=== PATIENT | female | born 1945 | race Caucasian/White ===

== ENCOUNTER → 2016-10-08 | Outpatient (CLI) | payer MEDICARE, OTHER ==
--- NOTE | 2016-10-08 17:33 | WOMENS IMAGING REPORT ---
EXAM DESCRIPTION: 3D DX MAMMO BILAT; U/S BREAST UNILAT LIMITED COMPLETED DATE/TIME: 10/08/2016 10:22 am; 10/08/2016 10:57 am REASON FOR STUDY: R92.8 INCONCLUSIVE MAMMO; LT BREAST PALPABLE AREA R92.8 OTH ABN AND INCONCLUSIVE FINDINGS ON DX IMAGING OF [place] COMPARISON: 10/05/2015 TECHNIQUE: Standard craniocaudal and mediolateral oblique views of each breast recorded using digita l acquisition and breast tomosynthesis. Additional left breast 90 mediolateral view Because of a history of left breast pain, left breast ultrasound was performed throughout the lower [facility]. LIMITATIONS: None. FINDINGS: RIGHT BREAST MASSES: No suspicious masses. CALCIFICATIONS: No new or suspicious calcifications. ARCHITECTURAL DISTORTION: Benign postoperative architectural distortion in the right central retroare olar region from reportedly benign breast biopsy in 2014 DEVELOPING DENSITY: None. ASYMMETRY: None noted. OTHER: No other significant findings. LEFT BREAST MASSES: No suspicious masses. CALCIFICATIONS: No new or suspicious calcifications. ARCHITECTURAL DISTORTION: None. DEVELOPING DENSITY: None. ASYMMETRY: None noted. OTHER: No other significant finding. Read with the assistance of CAD: .[facility] - R2 Cenova Version 1.3 .[facility] - R2 Cenova Version 1.3 .[facility] - R2 Cenova Version 2.4 .[facility] [place] Cenova Version 2.4 .[facility] - R2 Push Bench Operator Helper Version 9.2 Left breast ultrasound: Patient gives a history of left lower breast pain. Ultrasound of the left breast from the 3 to 6 o'c lock position demonstrates no discrete cystic or solid lesions. No worrisome acoustic absorption. N o focal findings. BREAST DENSITY: c. The breasts are heterogeneously dense, which may obscure small masses. BIRAD: 2 Benign findings. RECOMMENDATION: RECOMMENDED FOLLOW UP: Please continue yearly bilateral mammographic screening. Con gis technician bilateral screening tomosynthesis given heterogeneously dense tissue SPECIFIC INTERVENTION/IMAGING/CONSULTATION RECOMMENDED:No additional intervention/ imaging/consultati on needed at this time. COMMUNICATION:The negative/benign results were communicated to the patient. COMMENT: PATIENT NOTIFIED BY LETTER. The [employer] (ACR) has developed recommendations for screening MRI of the breast s in certain patient populations, to be used in conjunction with mammography. Breast MRI surveillanc e may be appropriate for women with more than 20% lifetime risk of developing breast cancer as deter mined by genetic testing, significant family history of the disease, or history of mantle radiation f or Hodgkins Disease. ACR Practice Guidelines 2008. DBT Technology DBT is a type of tomographic mammography. With conventional mammography, overlapping breast tissue ma y make lesions difficult to detect, even with good compression. DBT uses an x-ray tube that rotates a round the breast, taking images at different angles. These images are then combined to create thin sl ices of the breast that the radiologist can view as a 3D reconstruction. The Softdesk unit can perform full-field digital mammograms (2D imaging); or DBT (3D imaging); or both, in a combination mode that quickly performs both the mammogram and the tomosynthesis scan while the breast is still compressed. PQRS 6045F: Fluoroscopic imaging is not utilized for breast tomosynthesis. TECHNICAL DOCUMENTATION: FINDING NUMBER: (1) ASSESSMENT: (1) JOB ID: [id number] [employer]- All Rights Reserved
--- NOTE | 2016-10-08 17:33 | WOMENS IMAGING REPORT ---
EXAM DESCRIPTION: 3D DX MAMMO BILAT; U/S BREAST UNILAT LIMITED COMPLETED DATE/TIME: 10/08/2016 10:22 am; 10/08/2016 10:57 am REASON FOR STUDY: R92.8 INCONCLUSIVE MAMMO; LT BREAST PALPABLE AREA R92.8 OTH ABN AND INCONCLUSIVE FINDINGS ON DX IMAGING OF [place] COMPARISON: 10/05/2015 TECHNIQUE: Standard craniocaudal and mediolateral oblique views of each breast recorded using digita l acquisition and breast tomosynthesis. Additional left breast 90 mediolateral view Because of a history of left breast pain, left breast ultrasound was performed throughout the lower [facility]. LIMITATIONS: None. FINDINGS: RIGHT BREAST MASSES: No suspicious masses. CALCIFICATIONS: No new or suspicious calcifications. ARCHITECTURAL DISTORTION: Benign postoperative architectural distortion in the right central retroare olar region from reportedly benign breast biopsy in 2014 DEVELOPING DENSITY: None. ASYMMETRY: None noted. OTHER: No other significant findings. LEFT BREAST MASSES: No suspicious masses. CALCIFICATIONS: No new or suspicious calcifications. ARCHITECTURAL DISTORTION: None. DEVELOPING DENSITY: None. ASYMMETRY: None noted. OTHER: No other significant finding. Read with the assistance of CAD: .[facility] - R[facility] Cenova Version 1.3 .[facility] Imaging - R2 Cenova Version 1.3 .[facility] - R2 Cenova Version 2.4 .[facility] [place] R2 Cenova Version 2.4 .[facility] - R2 Loading Dock Hand Version 9.2 Left breast ultrasound: Patient gives a history of left lower breast pain. Ultrasound of the left breast from the 3 to 6 o'c lock position demonstrates no discrete cystic or solid lesions. No worrisome acoustic absorption. N o focal findings. BREAST DENSITY: c. The breasts are heterogeneously dense, which may obscure small masses. BIRAD: 2 Benign findings. RECOMMENDATION: RECOMMENDED FOLLOW UP: Please continue yearly bilateral mammographic screening. Con manager credit bilateral screening tomosynthesis given heterogeneously dense tissue SPECIFIC INTERVENTION/IMAGING/CONSULTATION RECOMMENDED:No additional intervention/ imaging/consultati on needed at this time. COMMUNICATION:The negative/benign results were communicated to the patient. COMMENT: PATIENT NOTIFIED BY LETTER. The [employer] (ACR) has developed recommendations for screening MRI of the breast s in certain patient populations, to be used in conjunction with mammography. Breast MRI surveillanc e may be appropriate for women with more than 20% lifetime risk of developing breast cancer as deter mined by genetic testing, significant family history of the disease, or history of mantle radiation f or Hodgkins Disease. ACR Practice Guidelines 2008. DBT Technology DBT is a type of tomographic mammography. With conventional mammography, overlapping breast tissue ma y make lesions difficult to detect, even with good compression. DBT uses an x-ray tube that rotates a round the breast, taking images at different angles. These images are then combined to create thin sl ices of the breast that the radiologist can view as a 3D reconstruction. The [employer] unit can perform full-field digital mammograms (2D imaging); or DBT (3D imaging); or both, in a combination mode that quickly performs both the mammogram and the tomosynthesis scan while the breast is still compressed. PQRS 6045F: Fluoroscopic imaging is not utilized for breast tomosynthesis. TECHNICAL DOCUMENTATION: FINDING NUMBER: (1) ASSESSMENT: (1) JOB ID: [id number] [employer]- All Rights Reserved
== END ==
LOC: WI 09:59
PROVIDERS: ATTEND Surgery
DX: R92.8 Other abnormal and inconclusive findings on diagnostic imaging of breast (principal)
CPT/HCPCS: 76642; G0279; G0204; 77062; 77066

== ENCOUNTER → 2016-12-11 | Outpatient (CLI) | payer MEDICARE, OTHER ==
[2016-12-11 11:38] LABS: HEMOGLOBIN 13.6 g/dL (12.0-15.5); HGB HCT DIFFERENCE -0.2; MEAN CORPUSCULAR HEMOGLOBIN 29.6 pg (27.0-33.4); MEAN CORPUSCULAR HGB CONC 33.2 g/dL (32.0-36.0); MEAN CORPUSCULAR VOLUME 89 fl (80-97); RED CELL DISTRIBUTION WIDTH 13.4 % (11.5-14.0); WHITE BLOOD COUNT 6.6 10^3/uL (4.0-10.5)
[2016-12-11 12:01] LABS: ALANINE AMINOTRANSFERASE 40 U/L (9-52); ALBUMIN 4.2 g/dL (3.5-5.0); ALKALINE PHOSPHATASE 73 U/L (38-126); ANION GAP 9 (5-19); ASPARTATE AMINO TRANSFERASE 24 U/L (14-36); BILIRUBIN,DIRECT 0.1 mg/dL (0.0-0.4); BILIRUBIN,TOTAL 0.3 mg/dL (0.2-1.3); BLOOD UREA NITROGEN 14 mg/dL (7-20); CARBON DIOXIDE 30 mmol/L (22-30); CHLORIDE 103 mmol/L (98-107); CHOLESTEROL 193.48 mg/dL (0-200); CREATININE RESULT 0.83 mg/dL (0.52-1.25); GLUCOSE 162 mg/dL (75-110); LITHIUM 0.9 mEq/L (0.6-1.2); POTASSIUM 4.8 mmol/L (3.6-5.0); SODIUM 142.3 mmol/L (137-145); TOTAL PROTEIN 6.5 g/dL (6.3-8.2); TRIGLYCERIDES 262 mg/dL (<150)
[2016-12-11 12:12] LABS: DIRECT LDL 79 mg/dL (<100)
[2016-12-11 12:32] LABS: THYROID STIMULATING HORMONE 2.56 uIU/mL (0.47-4.68)
== END ==
LOC: OD 10:31
PROVIDERS: ATTEND Psychiatry & Neurology Psychiatry
DX: F31.81 Bipolar II disorder (principal); E11.8 Type 2 diabetes mellitus with unspecified complications; Z79.899 Other long term (current) drug therapy
CPT/HCPCS: 36415; 80048; 80076; 80178; 82465; 83036; 83721; 84439; 84443; 84478; 85027

== ENCOUNTER → 2017-01-21 | Outpatient (CLI) | payer MEDICARE, OTHER ==
[2017-01-21 16:53] LABS: THYROID STIMULATING HORMONE 0.88 uIU/mL (0.47-4.68)
== END ==
LOC: OD 14:58
PROVIDERS: ATTEND Psychiatry & Neurology Psychiatry
DX: F31.81 Bipolar II disorder (principal)
CPT/HCPCS: 36415; 84439; 84443

== ENCOUNTER → 2017-11-11 | Outpatient (CLI) | payer MEDICARE, OTHER ==
--- NOTE | 2017-11-12 09:19 | WOMENS IMAGING REPORT ---
EXAM DESCRIPTION: 3D SCREENING MAMMO BILAT COMPLETED DATE/TIME: 11/11/2017 2:50 pm REASON FOR STUDY: SCREENING MAMMO Z12.31 ENCNTR SCREEN MAMMOGRAM FOR MALIGNANT NEOPLASM OF [place] COMPARISON: 2015, 2016 TECHNIQUE: Standard craniocaudal and mediolateral oblique views of each breast recorded using digita l acquisition and breast tomosynthesis. LIMITATIONS: None. FINDINGS: Findings present which are benign by mammographic criteria. No suspicious masses, calcifi cations or architectural distortion. Pertinent benign findings: Stable post therapeutic changes in the central right breast, with post lum pectomy architectural distortion. Stable bilateral breast parenchymal and skin calcifications. Read with the assistance of CAD. .[facility] - R2 Cenova Version 1.3 .[facility] Imaging - R2 Cenova Version 1.3 .[facility] Imaging - R2 Cenova Version 2.4 .[facility] [place] R2 Cenova Version 2.4 .[facility] - R2 Reliner Version 9.2 Benign mammographic findings may include one or more of the following: Smooth masses, popcorn/rim/co arse calcifications, asymmetries, post-procedure changes, and lesions with long-standing stability. IMPRESSION: BENIGN MAMMOGRAPHIC FINDINGS. BIRADS 2 BREAST DENSITY: c. The breasts are heterogeneously dense, which may obscure small masses. BIRAD: 2 BENIGN FINDING(S) RECOMMENDATION: RECOMMENDATION: ROUTINE SCREENING Please continue bilateral screening tomosynthesis in October 2018 COMMENT: The patient has been notified of the results by letter per [place] requirements. Additional no tification policies are in place for contacting patient with suspicious or incomplete findings. Quality ID #[id number]: The [employer] recommends an annual screening mammogram for women aged 40 years or over. This facility utilizes a reminder system to ensure that all patients receive reminder letters, and/or direct phone calls for appointments. This includes reminders for routine scr eening mammograms, diagnostic mammograms, or other Breast Imaging Interventions when appropriate. Th is patient will be placed in the appropriate reminder system. The [employer] (ACR) has developed recommendations for screening MRI of the breast s in certain patient populations, to be used in conjunction with mammography. Breast MRI surveillanc e may be appropriate for women with more than 20% lifetime risk of developing breast cancer as deter mined by genetic testing, significant family history of the disease, or history of mantle radiation f or Hodgkins Disease. ACR Practice Guidelines 2008. DBT Technology DBT is a type of tomographic mammography. With conventional mammography, overlapping breast tissue ma y make lesions difficult to detect, even with good compression. DBT uses an x-ray tube that rotates a round the breast, taking images at different angles. These images are then combined to create thin sl ices of the breast that the radiologist can view as a 3D reconstruction. The Hologic unit can perform full-field digital mammograms (2D imaging); or DBT (3D imaging); or both, in a combination mode that quickly performs both the mammogram and the tomosynthesis scan while the breast is still compressed. PQRS 6045F: Fluoroscopic imaging is not utilized for breast tomosynthesis. TECHNICAL DOCUMENTATION: FINDING NUMBER: (1) ASSESSMENT: (1) JOB ID: [id number] [employer]- All Rights Reserved
== END ==
LOC: WI 14:02
PROVIDERS: ATTEND Surgery
DX: Z12.31 Encounter for screening mammogram for malignant neoplasm of breast (principal)
CPT/HCPCS: 77063; 77067

== ENCOUNTER → 2018-12-02 | Outpatient (CLI) | payer MEDICARE, OTHER ==
[2018-12-02 15:56] LABS: ABSOLUTE BASOPHILS # (AUTO) 0.1 10^3/uL (0.0-0.2); ABSOLUTE EOSINOPHILS # (AUTO) 0.3 10^3/uL (0.0-0.6); ABSOLUTE LYMPHOCYTES (AUTO) 1.6 10^3/uL (0.5-4.7); ABSOLUTE MONOCYTES (AUTO) 0.9 10^3/uL (0.1-1.4); ABSOLUTE NEUT (AUTO) 6.2 10^3/uL (1.7-8.2); BASOPHILS % (AUTO) 0.8 % (0-2); EOSINOPHILS % (AUTO) 2.8 % (0-6); HEMATOCRIT 41.3 % (36.0-47.0); HEMOGLOBIN 14.1 g/dL (12.0-15.5); LYMPHOCYTES % (AUTO) 17.8 % (13-45); MEAN CORPUSCULAR HEMOGLOBIN 30.4 pg (27.0-33.4); MEAN CORPUSCULAR HGB CONC 34.2 g/dL (32.0-36.0); MEAN CORPUSCULAR VOLUME 89 fl (80-97); MONOCYTES % (AUTO) 10.4 % (3-13); PLATELET COUNT 259 10^3/uL (150-450); RED BLOOD COUNT 4.65 10^6/uL (3.72-5.28); RED CELL DISTRIBUTION WIDTH 13.2 % (11.5-14.0); SEGMENTED NEUTROPHILS % (AUTO) 68.2 % (42-78); TOTAL CELLS COUNTED % (AUTO) 100 %
[2018-12-02 16:27] LABS: ALANINE AMINOTRANSFERASE 36 U/L (9-52); ALBUMIN 4.3 g/dL (3.5-5.0); ALKALINE PHOSPHATASE 76 U/L (38-126); ANION GAP 5 (5-19); ASPARTATE AMINO TRANSFERASE 20 U/L (14-36); BILIRUBIN,DIRECT 0.1 mg/dL (0.0-0.4); BILIRUBIN,TOTAL 0.2 mg/dL (0.2-1.3); BLOOD UREA NITROGEN 20 mg/dL (7-20); CALCIUM 10.6 mg/dL (8.4-10.2); CARBON DIOXIDE 28 mmol/L (22-30); CHLORIDE 104 mmol/L (98-107); POTASSIUM 4.7 mmol/L (3.6-5.0); SODIUM 137.1 mmol/L (137-145); TOTAL PROTEIN 6.7 g/dL (6.3-8.2)
[2018-12-02 16:31] LABS: GLUCOSE 66 mg/dL (75-110)
[2018-12-02 16:41] LABS: FREE T4 (FREE THYROXINE) 0.53 ng/dL (0.78-2.19)
[2018-12-02 16:55] LABS: THYROID STIMULATING HORMONE 1.15 uIU/mL (0.47-4.68)
== END ==
LOC: OD 14:29
PROVIDERS: ATTEND Physician Assistant
DX: F31.81 Bipolar II disorder (principal); Z79.899 Other long term (current) drug therapy
CPT/HCPCS: 36415; 80053; 80178; 83036; 84146; 84439; 84443; 85025

== ENCOUNTER 2018-12-12 17:12 | Emergency (ER) | payer MEDICARE, OTHER ==
[2018-12-12 17:27] VITALS: BP 143/57
--- NOTE | 2018-12-12 18:38 | ER Document Report ---
ED Medical Screen (RME) - General Chief Complaint: Tremor Stated Complaint: SHAKY, UNABLE TO EAT Time Seen by Provider: 12/12/18 18:36 Primary Care Provider: BART RIVERA PA-C [Primary Care Provider] - Follow up as needed Mode of Arrival: Wheelchair Information source: Patient, Relative TRAVEL OUTSIDE OF THE [place] IN LAST 30 DAYS: No - HPI Patient complains to provider of: fall; tremor Onset: Yesterday - pt fell in the shower and hit head 2 days ago -- no LOC. Now with tremor in UE's bilaterally - Related Data Allergies/Adverse Reactions: No Known Allergies Allergy (Verified 12/12/18 17:14) Past Medical History - Past Medical History Cardiac Medical History: Reports: Hx Hypercholesterolemia Denies: Hx Heart Attack, Hx Hypertension Pulmonary Medical History: Denies: Hx Asthma, Hx Tuberculosis Neurological Medical History: Denies: Hx Cerebrovascular Accident, Hx Seizures GI Medical History: Denies: Hx Hepatitis, Hx Hiatal Hernia, Hx Ulcer Psychiatric Medical History: Reports: Hx Bipolar Disorder, Hx Schizophrenia Infectious Medical History: Denies: Hx Hepatitis Past Surgical History: Reports: Hx Hysterectomy. Denies: Hx Mastectomy, Hx Open Heart Surgery, Hx Pacemaker Physical Exam - Vital signs Vitals: Temp Pulse Resp BP Pulse Ox 98.9 F 91 17 143/57 H 95 12/12/18 17:26 12/12/18 17:26 12/12/18 17:26 12/12/18 17:26 12/12/18 17:26 Course - Vital Signs Vital signs: Temp Pulse Resp BP Pulse Ox 98.9 F 91 17 143/57 H 95 12/12/18 17:26 12/12/18 17:26 12/12/18 17:26 12/12/18 17:26 12/12/18 17:26 Doctor's Discharge - Discharge Referrals: BART RIVERA PA-C [Primary Care Provider] - Follow up as needed
--- NOTE | 2018-12-12 18:58 | RADIOLOGY REPORT (SQ) ---
EXAM DESCRIPTION: CT HEAD WITHOUT COMPLETED DATE/TIME: 12/12/2018 6:50 pm REASON FOR STUDY: fall COMPARISON: None. TECHNIQUE: Axial images acquired through the brain without intravenous contrast. Images reviewed wi th bone, brain and subdural windows. Additional sagittal and coronal reconstructions were generated. Images stored on PACS. All CT scanners at this facility use dose modulation, iterative reconstruction, and/or weight based d osing when appropriate to reduce radiation dose to as low as reasonably achievable (ALARA). [facility]: Dose Right [facility]: CareDose [facility]: Dose Right [facility]: Teradose 4D [facility]: Hostspot RADIATION DOSE: CT Rad equipment meets quality standard of care and radiation dose reduction techniq ues were employed. CTDIvol: 53.2 mGy. DLP: 1044 mGy-cm. mGy. LIMITATIONS: None. FINDINGS: VENTRICLES: Normal size and contour. CEREBRUM: No masses. No hemorrhage. No midline shift. No evidence for acute infarction. Normal gra y/white matter differentiation. No areas of low density in the white matter. CEREBELLUM: No masses. No hemorrhage. No alteration of density. No evidence for acute infarction. EXTRAAXIAL SPACES: No fluid collections. No masses. ORBITS AND GLOBE: No intra- or extraconal masses. Normal contour of globe without masses. CALVARIUM: No fracture. PARANASAL SINUSES: No fluid or mucosal thickening. SOFT TISSUES: No mass or hematoma. OTHER: No other significant finding. IMPRESSION: No acute intracranial pathology. EVIDENCE OF ACUTE STROKE: NO. COMMENT: Quality ID # [id number]: Final reports with documentation of one or more dose reduction techniques (e.g., Automated exposure control, adjustment of the mA and/or kV according to patient size, use of iterative reconstruction technique) TECHNICAL DOCUMENTATION: JOB ID: [id number] [employer]- All Rights Reserved Reading location - IP/workstation name: [email or web address]
[2018-12-12 19:56] LABS: APPEARANCE,URINE CLEAR; BILIRUBIN,URINE NEGATIVE (NEGATIVE); COLOR,URINE YELLOW; GLUCOSE, URINE NEGATIVE (NEGATIVE); KETONES,URINE NEGATIVE (NEGATIVE); LEUKOCYTE ESTERASE,URINE NEGATIVE (NEGATIVE); NITRITE,URINE NEGATIVE (NEGATIVE); PROTEIN,URINE NEGATIVE (NEGATIVE); URINE SPECIFIC GRAVITY 1.011; UROBILINOGEN,URINE NEGATIVE mg/dL (<2.0)
[2018-12-12 20:09] LABS: ABSOLUTE BASOPHILS # (AUTO) 0.1 10^3/uL (0.0-0.2); ABSOLUTE EOSINOPHILS # (AUTO) 0.3 10^3/uL (0.0-0.6); ABSOLUTE LYMPHOCYTES (AUTO) 1.4 10^3/uL (0.5-4.7); ABSOLUTE MONOCYTES (AUTO) 0.6 10^3/uL (0.1-1.4); ABSOLUTE NEUT (AUTO) 4.4 10^3/uL (1.7-8.2); BASOPHILS % (AUTO) 0.8 % (0-2); EOSINOPHILS % (AUTO) 3.8 % (0-6); HEMATOCRIT 43.2 % (36.0-47.0); HEMOGLOBIN 14.6 g/dL (12.0-15.5); LYMPHOCYTES % (AUTO) 20.7 % (13-45); MEAN CORPUSCULAR HEMOGLOBIN 30.1 pg (27.0-33.4); MEAN CORPUSCULAR HGB CONC 33.8 g/dL (32.0-36.0); MEAN CORPUSCULAR VOLUME 89 fl (80-97); MONOCYTES % (AUTO) 9.1 % (3-13); PLATELET COUNT 234 10^3/uL (150-450); RED BLOOD COUNT 4.84 10^6/uL (3.72-5.28); SEGMENTED NEUTROPHILS % (AUTO) 65.6 % (42-78); TOTAL CELLS COUNTED % (AUTO) 100 %; WHITE BLOOD COUNT 6.7 10^3/uL (4.0-10.5)
[2018-12-12 20:17] LABS: ALANINE AMINOTRANSFERASE 99 U/L (9-52); ALBUMIN 4.3 g/dL (3.5-5.0); ALKALINE PHOSPHATASE 84 U/L (38-126); ANION GAP 9 (5-19); ASPARTATE AMINO TRANSFERASE 32 U/L (14-36); BILIRUBIN,DIRECT 0.1 mg/dL (0.0-0.4); BILIRUBIN,TOTAL 0.1 mg/dL (0.2-1.3); BLOOD UREA NITROGEN 17 mg/dL (7-20); CARBON DIOXIDE 30 mmol/L (22-30); CHLORIDE 101 mmol/L (98-107); GLUCOSE 140 mg/dL (75-110); POTASSIUM 4.6 mmol/L (3.6-5.0); TOTAL PROTEIN 7.2 g/dL (6.3-8.2)
[2018-12-12 20:34] LABS: FREE T3 3.41 pg/mL (2.77-5.27); FREE T4 (FREE THYROXINE) 0.56 ng/dL (0.78-2.19)
[2018-12-12 20:48] LABS: THYROID STIMULATING HORMONE 0.68 uIU/mL (0.47-4.68)
--- NOTE | 2018-12-12 20:57 | ER Document Report ---
ED General - General Chief Complaint: Tremor Stated Complaint: SHAKY, UNABLE TO EAT Time Seen by Provider: 12/12/18 18:36 Primary Care Provider: BART RIVERA PA-C [NO LOCAL MD] - Follow up as needed Mode of Arrival: Wheelchair Information source: Patient, Relative TRAVEL OUTSIDE OF THE [place] IN LAST 30 DAYS: No - HPI Patient complains to provider of: Head injury, tremors Onset: Other - 2 days ago Onset/Duration: Persistent Quality of pain: No pain Associated symptoms: None Exacerbated by: Movement Relieved by: Denies Similar symptoms previously: No Recently seen / treated by doctor: No Notes: Patient is a 73-year-old female presenting to the emergency room today complaining of head injury that occurred 2 days ago, she slipped and fell in the shower, came home and found her lying in the bathtub, she was awake and alert at the time, however she developed a resting tremor since then, she denies any pain at this time, no nausea or vomiting, no change in vision, she denies pain or injury elsewhere, no numbness or tingling to her extremities, no chest pain or shortness of breath, no headache - Related Data Allergies/Adverse Reactions: No Known Allergies Allergy (Verified 12/12/18 17:14) Past Medical History - General Information source: Patient, Relative - Social History Smoking Status: Never Smoker Chew tobacco use (# tins/day): No Frequency of alcohol use: None Drug Abuse: None Family History: Reviewed & Not Pertinent Patient has suicidal ideation: No Patient has homicidal ideation: No - Past Medical History Cardiac Medical History: Reports: Hx Hypercholesterolemia Denies: Hx Heart Attack, Hx Hypertension Pulmonary Medical History: Denies: Hx Asthma, Hx Tuberculosis Neurological Medical History: Denies: Hx Cerebrovascular Accident, Hx Seizures Renal/ Medical History: Denies: Hx Peritoneal Dialysis GI Medical History: Denies: Hx Hepatitis, Hx Hiatal Hernia, Hx Ulcer Psychiatric Medical History: Reports: Hx Bipolar Disorder, Hx Schizophrenia Infectious Medical History: Denies: Hx Hepatitis Past Surgical History: Reports: Hx Hysterectomy. Denies: Hx Mastectomy, Hx Open Heart Surgery, Hx Pacemaker - Immunizations Hx Pneumococcal Vaccination: 09/28/12 Review of Systems - Review of Systems Constitutional: No symptoms reported EENT: No symptoms reported Cardiovascular: No symptoms reported Respiratory: No symptoms reported Gastrointestinal: No symptoms reported Genitourinary: No symptoms reported Female Genitourinary: No symptoms reported Musculoskeletal: No symptoms reported Skin: No symptoms reported Hematologic/Lymphatic: No symptoms reported Neurological/Psychological: Tremor -: Yes All other systems reviewed and negative Physical Exam - Vital signs Vitals: Temp Pulse Resp BP Pulse Ox 98.9 F 91 17 143/57 H 95 12/12/18 17:26 12/12/18 17:26 12/12/18 17:26 12/12/18 17:26 12/12/18 17:26 Interpretation: Normal - General General appearance: Appears well, Alert In distress: None - HEENT Head: Normocephalic, Atraumatic Eyes: Normal Conjunctiva: Normal Extraocular movements intact: Yes Eyelashes: Normal Pupils: PERRL Sinus: Normal Mouth/Lips: Normal Mucous membranes: Normal Pharynx: Normal Neck: Normal - Respiratory Respiratory status: No respiratory distress Chest status: Nontender Breath sounds: Normal Chest palpation: Normal - Cardiovascular Rhythm: Regular Heart sounds: Normal auscultation Murmur: No - Abdominal Inspection: Normal Distension: No distension Bowel sounds: Normal Tenderness: Nontender Organomegaly: No organomegaly - Back Back: Normal, Nontender, Other - No bony deformity - Extremities General upper extremity: Normal inspection, Nontender, Normal color, Normal ROM, Normal temperature General lower extremity: Normal inspection, Nontender, Normal color, Normal ROM, Normal temperature. No: Godfrey's sign - Neurological Neuro grossly intact: Yes Cognition: Normal Orientation: AAOx4 [place] Coma Scale Eye Opening: Spontaneous Princess Coma Scale Verbal: Oriented Princess Coma Scale Motor: Obeys Commands Princess Coma Scale Total: 15 Speech: Normal Motor strength normal: LUE, RUE, LLE, RLE Additional motor exam normals: Other - Slight tremor in upper extremities Sensory: Normal - Psychological Associated symptoms: Normal affect, Normal mood - Skin Skin Temperature: Warm Skin Moisture: Dry Skin Color: Pale Course - Re-evaluation Re-evalutation: 12/12/18 21:05 Lab and imaging findings discussed with patient and spouse at bedside which are relatively unremarkable, no explanation for patient's tremors at this time, patient was advised to follow-up with primary care provider or return if symptoms worsen, patient and acknowledged understanding and agreement with this plan - Vital Signs Vital signs: Temp Pulse Resp BP Pulse Ox 98.9 F 91 17 143/57 H 95 12/12/18 17:26 12/12/18 17:26 12/12/18 17:26 12/12/18 17:26 12/12/18 17:26 - Laboratory Result Diagrams: 12/12/18 19:48 12/12/18 19:48 Laboratory results interpreted by me: 12/12/18 12/12/18 12/12/18 19:40 19:40 19:48 Glucose 140 H Calcium 11.0 H Total Bilirubin 0.1 L ALT 99 H Free T4 0.56 L Urine Ascorbic Acid 40 H Discharge - Discharge Clinical Impression: Continuous tremor Head injury Qualifiers: Encounter type: initial encounter Qualified Code(s): S09.90XA - Unspecified injury of head, initial encounter Condition: Stable Disposition: HOME, SELF-CARE Instructions: Head Injury Precautions ([facility]) Additional Instructions: Follow up with your primary care provider in one to 2 days. Return to the emergency room immediately if symptoms worsen or any additional concerns. Referrals: BART RIVERA PA-C [NO LOCAL MD] - Follow up as needed
== END 2018-12-12 21:10 | disposition home or self-care (01) ==
LOC: ER 17:12
DX: S09.90XA Unspecified injury of head, initial encounter (principal); R25.1 Tremor, unspecified; R63.0 Anorexia; W18.2XXA Fall in (into) shower or empty bathtub, initial encounter
CPT/HCPCS: 36415; 70450; 80053; 81001; 82550; 82553; 84439; 84443; 84481; 85025; 99284

== ENCOUNTER 2018-12-22 16:42 | Inpatient (IN) | payer MEDICARE, OTHER ==
[2018-12-22 17:17] LABS: APPEARANCE,URINE CLEAR; BILIRUBIN,URINE NEGATIVE (NEGATIVE); COLOR,URINE YELLOW; GLUCOSE, URINE NEGATIVE (NEGATIVE); KETONES,URINE 20 mg/dL (NEGATIVE); LEUKOCYTE ESTERASE,URINE MODERATE (NEGATIVE); NITRITE,URINE NEGATIVE (NEGATIVE); PROTEIN,URINE NEGATIVE (NEGATIVE); URINE SPECIFIC GRAVITY 1.016; UROBILINOGEN,URINE NEGATIVE mg/dL (<2.0)
[2018-12-22 17:20] LABS: ABSOLUTE EOSINOPHILS # (AUTO) 0.1 10^3/uL (0.0-0.6); ABSOLUTE LYMPHOCYTES (AUTO) 1.8 10^3/uL (0.5-4.7); ABSOLUTE MONOCYTES (AUTO) 1.7 10^3/uL (0.1-1.4); ABSOLUTE NEUT (AUTO) 11.3 10^3/uL (1.7-8.2); BASOPHILS % (AUTO) 0.3 % (0-2); EOSINOPHILS % (AUTO) 0.6 % (0-6); HEMATOCRIT 46.9 % (36.0-47.0); HEMOGLOBIN 15.9 g/dL (12.0-15.5); LYMPHOCYTES % (AUTO) 11.8 % (13-45); MEAN CORPUSCULAR HEMOGLOBIN 29.8 pg (27.0-33.4); MEAN CORPUSCULAR HGB CONC 33.8 g/dL (32.0-36.0); MEAN CORPUSCULAR VOLUME 88 fl (80-97); MONOCYTES % (AUTO) 11.2 % (3-13); PLATELET COUNT 288 10^3/uL (150-450); RED BLOOD COUNT 5.31 10^6/uL (3.72-5.28); RED CELL DISTRIBUTION WIDTH 12.7 % (11.5-14.0); SEGMENTED NEUTROPHILS % (AUTO) 76.1 % (42-78); TOTAL CELLS COUNTED % (AUTO) 100 %; WHITE BLOOD COUNT 14.9 10^3/uL (4.0-10.5)
[2018-12-22 17:22] LABS: VENOUS BLOOD BASE EXCESS 0.2 mmol/L; VENOUS BLOOD PCO2 41.2 mmHg (35-63); VENOUS BLOOD PH 7.4 (7.30-7.42)
[2018-12-22 17:25] LABS: INTERNATIONAL RATION (INR) 0.96; PROTHROMBIN TIME 13.2 SEC (11.4-15.4)
--- NOTE | 2018-12-22 17:29 | RADIOLOGY REPORT (SQ) ---
EXAM DESCRIPTION: CHEST SINGLE VIEW COMPLETED DATE/TIME: 12/22/2018 5:18 pm REASON FOR STUDY: bed 10 sepsis alert COMPARISON: None. EXAM PARAMETERS: NUMBER OF VIEWS: One view. TECHNIQUE: Single frontal radiographic view of the chest acquired. RADIATION DOSE: NA LIMITATIONS: None. FINDINGS: LUNGS AND PLEURA: No opacities, masses or pneumothorax. No pleural effusion. MEDIASTINUM AND HILAR STRUCTURES: No masses. Contour normal. HEART AND VASCULAR STRUCTURES: Heart normal in size. Normal vasculature. BONES: No acute findings. HARDWARE: None in the chest. OTHER: No other significant finding. IMPRESSION: NO ACUTE RADIOGRAPHIC FINDING IN THE CHEST. TECHNICAL DOCUMENTATION: JOB ID: [id number] [employer]- All Rights Reserved Reading location - IP/workstation name: [email or web address]
[2018-12-22 17:40] LABS: ALANINE AMINOTRANSFERASE 50 U/L (9-52); ALBUMIN 4.5 g/dL (3.5-5.0); ALKALINE PHOSPHATASE 118 U/L (38-126); ANION GAP 11 (5-19); ASPARTATE AMINO TRANSFERASE 43 U/L (14-36); BILIRUBIN,DIRECT 0.3 mg/dL (0.0-0.4); BILIRUBIN,TOTAL 0.6 mg/dL (0.2-1.3); BLOOD UREA NITROGEN 36 mg/dL (7-20); CALCIUM 11.7 mg/dL (8.4-10.2); CARBON DIOXIDE 23 mmol/L (22-30); CHLORIDE 106 mmol/L (98-107); GLUCOSE 105 mg/dL (75-110); POTASSIUM 4.6 mmol/L (3.6-5.0); SODIUM 140.4 mmol/L (137-145); TOTAL PROTEIN 7.3 g/dL (6.3-8.2)
--- NOTE | 2018-12-22 18:10 | ER Document Report ---
ED General - General Chief Complaint: Altered Mental Status Stated Complaint: NAUSEA Time Seen by Provider: 12/22/18 18:09 Mode of Arrival: Stretcher Information source: Relative Cannot obtain history due to: Dementia, Altered mental status Notes: HISTORY OF PRESENT ILLNESS: Patient is a 73-year-old female with a past medical history of Parkinson's disease, bipolar disorder, and schizophrenia who is chronically bedridden with impaired ability to ambulate who presents with altered mental status. The patient's is the primary source of information due to the patient's altered mental status. Of note, the patient's reports that her "urine has been dark and smelled strong." He also reports that the patient fell 2 weeks ago but had a negative CT scan of her head in the hospital, however she fell again last week. Location: Global Onset: Gradual 2 days ago Provocation: Unknown Quality: Weakness/altered mental status Radiation: None Severity: Moderate Timing: Constant Associated symptoms: No fever or cough, no congestion or abdominal pain, no vomiting or diarrhea REVIEW OF SYSTEMS: CONSTITUTIONAL : Denies fever or chills, no sweats. Denies recent illness. EENT: Denies eye, ear, throat, or mouth pain or symptoms. Denies nasal or si nus congestion. CARDIOVASCULAR: Denies chest pain. RESPIRATORY: Denies cough, cold, or chest congestion. Denies shortness of breath, difficulty breathing, or wheezing. GASTROINTESTINAL: Denies abdominal pain. Denies nausea, vomiting, or diarrhea. Denies constipation. GENITOURINARY: Denies difficulty urinating, painful urination, burning, frequency, or blood in urine. Denies vaginal bleeding, abnormal or irregular periods. MUSCULOSKELETAL: Denies neck or back pain or joint pain or swelling. SKIN: Denies rash or skin lesions. HEMATOLOGIC : Denies easy bruising or bleeding. LYMPHATIC: Denies swollen, enlarged glands. NEUROLOGICAL: Positive for altered mental status. Denies headache. Denies weakness or paralysis or loss of use of either side. Denies problems with gait or speech. Denies sensory or motor loss. PSYCHIATRIC: Denies anxiety or stress or depression. All other systems reviewed and negative. PHYSICAL EXAMINATION: GENERAL: Frail-appearing but in no acute distress. HEAD: Atraumatic, normocephalic. No scalp deformity, depression, or crepitance. EYES: Pupils are 2mm and equal/round/reactive to light, extraocular movements intact, sclera anicteric, conjunctiva are normal. ENT: Nares patent bilaterally, oropharynx clear without exudates or palatal petechia. Moist mucous membranes. No tonsil hypertrophy. NECK: Normal range of motion, supple without lymphadenopathy. LUNGS: Breath sounds present, equal, and clear to auscultation bilaterally. No wheezes, rales, or rhonchi. HEART: Regular rate and rhythm without murmurs, rubs, or gallops. 2+ peripheral pulses. Normal capillary refill. ABDOMEN: Soft without distention, patient grimaces with palpation to the suprapubic area. Normoactive bowel sounds. No guarding, no rebound. No masses appreciated. BACK: Normal contour, no midline tenderness. Rectal exam deferred. PELVC: Deferred. EXTREMITIES: Normal range of motion, no pitting or edema. No cyanosis. NEUROLOGICAL: Patient is nonverbal and does not follow commands. Moves all extremities spontaneously. PSYCH: Agitated mood, normal affect. No suicidal thoughts/ideations. No homocidal thoughts/ideations. No hallucinations. SKIN: Warm, dry, normal turgor, no rashes or lesions noted. ASSESSMENT AND PLAN: This patient is a 73-year-old female who presents with altered mental status that could be secondary to UTI versus pneumonia versus intracranial pathology. 1. Will obtain labs, urine, cardiac enzymes, and CT scan of the head. 2. Will likely admit to the hospital. TRAVEL OUTSIDE OF THE [place] IN LAST 30 DAYS: No - Related Data Allergies/Adverse Reactions: No Known Allergies Allergy (Verified 12/22/18 17:30) Past Medical History - General Information source: Relative Cannot obtain history due to: Dementia, Altered mental status - Social History Smoking Status: Never Smoker Chew tobacco use (# tins/day): No Frequency of alcohol use: None Drug Abuse: None Lives with: Family Family History: Reviewed & Not Pertinent Patient has suicidal ideation: No Patient has homicidal ideation: No - Past Medical History Cardiac Medical History: Reports: Hx Hypercholesterolemia Denies: Hx Heart Attack, Hx Hypertension Pulmonary Medical History: Reports: None Denies: Hx Asthma, Hx Tuberculosis EENT Medical History: Reports: None Neurological Medical History: Reports: Other - History of Parkinson's disease. Denies: Hx Cerebrovascular Accident, Hx Seizures Endocrine Medical History: Reports: None Renal/ Medical History: Reports: None. Denies: Hx Peritoneal Dialysis Malignancy Medical History: Reports: None GI Medical History: Reports: None. Denies: Hx Hepatitis, Hx Hiatal Hernia, Hx Ulcer Musculoskeletal Medical History: Reports None Skin Medical History: Reports None Psychiatric Medical History: Reports: Hx Bipolar Disorder, Hx Schizophrenia Traumatic Medical History: Reports: None Infectious Medical History: Reports: None. Denies: Hx Hepatitis Past Surgical History: Reports: Hx Hysterectomy. Denies: Hx Mastectomy, Hx Open Heart Surgery, Hx Pacemaker - Immunizations Immunizations up to date: Yes Hx Diphtheria, Pertussis, Tetanus Vaccination: Yes History of Influenza Vaccine for 06/2017 - 11/2017 Season: Yes Hx Pneumococcal Vaccination: 09/28/12 Physical Exam - Vital signs Vitals: Pulse Ox 95 12/22/18 16:44 Course - Re-evaluation Re-evalutation: 12/22/18 19:35 Blood work shows elevated white blood cell count and urinalysis shows evidence of early urinary tract infection. Chest x-ray is negative for pneumonia. CT head is still pending. Patient will be given 1 g of IV Rocephin and will await CT scan before admission. 12/22/18 21:16 CT head is negative. After consultation with the hospitalist, there is extra concern for possible meningitis given urinalysis is not conclusive. IV vancomycin will be added to her medication regimen, and we will attempt lumbar puncture under fluoroscopy. Hospitalist will see the patient for admission. - Vital Signs Vital signs: Temp Pulse Resp BP Pulse Ox 100.3 F 96 24 H 140/90 H 92 12/22/18 17:07 12/22/18 17:07 12/22/18 21:00 12/22/18 19:01 12/22/18 21:00 - Laboratory Result Diagrams: 12/22/18 16:59 12/22/18 16:59 Laboratory results interpreted by me: 12/22/18 12/22/18 12/22/18 16:59 16:59 16:59 WBC 14.9 H RBC 5.31 H Hgb 15.9 H Lymphocytes % 11.8 L Absolute Neutrophils 11.3 H Absolute Monocytes 1.7 H BUN 36 H Calcium 11.7 H AST 43 H Urine Ketones Ur Leukocyte Esterase Urine Ascorbic Acid [place] 2.0 H* 12/22/18 17:06 WBC RBC Hgb Lymphocytes % Absolute Neutrophils Absolute Monocytes BUN Calcium AST Urine Ketones 20 H Ur Leukocyte Esterase MODERATE H Urine Ascorbic Acid 20 H [place] - Diagnostic Test Radiology reviewed: Image reviewed, Reports reviewed - EKG Interpretation by Me EKG shows normal: Sinus rhythm Rate: Normal Rhythm: NSR [place]/QRS: No: Right axis deviation, Left axis deviation, RBBB, LBBB, IVCD, LAHB/LAFB, LPHB/LPFB, Bifasicular block Voltage: No: Increased voltage, Consistant with LVH, Decreased voltage, Throughout, Limb leads P Waves: No: KAYLIN, LAE, Absent, AV Dissociation, Other Heart block present: No: 1st Degree, Mob[place] 1, [place] 2, CHB (3rd degree block) When compared to previous EKG there are: No significant change - Consults Dr. Montero Time consulted: 21:17 - add Vancomycin, obtain lumbar puncture under fluoroscopy, will admit Consulted provider: will come to ER Critical Care Note - Critical Care Note Total time excluding time spent on procedures (mins): 120 Comments: Critical care time spent obtaining history from patient or surrogate, discussions with consultants, development of treatment plan with patient or surrogate, evaluation of patient's response to treatment, examination of patient, ordering and performing treatments and interventions, ordering and review of laboratory studies, re-evaluation of patient's condition, ordering and review of radiographic studies and review of old charts. Discharge - Discharge Clinical Impression: Altered mental status Qualifiers: Altered mental status type: delirium Qualified Code(s): R41.0 - Disorientation, unspecified Urinary tract infection Qualifiers: Urinary tract infection type: acute cystitis Hematuria presence: without hematuria Qualified Code(s): N30.00 - Acute cystitis without hematuria [place] toxicity Qualifiers: Encounter type: initial encounter Injury intent: undetermined intent Qualified Code(s): T56.894A - Toxic effect of other metals, undetermined, initial encounter Condition: Stable Disposition: ADMITTED INPATIENT Admitting Provider: Hospitalist Unit Admitted: Telemetry
[2018-12-22] MEDS ORDERED: CEFTRIAXONE 1 GM/D5W RTU 1 GM/50 ML RTUPB IV ONE (18:42)
--- NOTE | 2018-12-22 19:52 | RADIOLOGY REPORT (SQ) ---
EXAM DESCRIPTION: CT HEAD WITHOUT COMPLETED DATE/TIME: 12/22/2018 7:31 pm REASON FOR STUDY: Fall COMPARISON: 12/12/2018 TECHNIQUE: Axial images acquired through the brain without intravenous contrast. Images reviewed wi th bone, brain and subdural windows. Additional sagittal and coronal reconstructions were generated. Images stored on PACS. All CT scanners at this facility use dose modulation, iterative reconstruction, and/or weight based d osing when appropriate to reduce radiation dose to as low as reasonably achievable (ALARA). [facility]: Dose Right [facility]: CareDose [facility]: Dose Right [facility]: Teradose 4D [facility]: Smart Technologies RADIATION DOSE: CT Rad equipment meets quality standard of care and radiation dose reduction techniq ues were employed. CTDIvol: 55.2 mGy. DLP: 1112 mGy-cm. mGy. LIMITATIONS: None. FINDINGS: VENTRICLES: Normal size and contour. CEREBRUM: No masses. No hemorrhage. No midline shift. No evidence for acute infarction. Normal gra y/white matter differentiation. No areas of low density in the white matter. CEREBELLUM: No masses. No hemorrhage. No alteration of density. No evidence for acute infarction. EXTRAAXIAL SPACES: No fluid collections. No masses. ORBITS AND GLOBE: No intra- or extraconal masses. Normal contour of globe without masses. CALVARIUM: No fracture. PARANASAL SINUSES: There chronic changes in the right maxillary sinus with calcification inferiorly. SOFT TISSUES: No mass or hematoma. OTHER: No other significant finding. IMPRESSION: No acute intracranial event. EVIDENCE OF ACUTE STROKE: NO. COMMENT: Quality ID # [id number]: Final reports with documentation of one or more dose reduction techniques (e.g., Automated exposure control, adjustment of the mA and/or kV according to patient size, use of iterative reconstruction technique) TECHNICAL DOCUMENTATION: JOB ID: [id number] [employer]- All Rights Reserved Reading location - IP/workstation name: [email or web address]
[2018-12-22] MEDS ORDERED: ACETAMINOPHEN 650 MG SUPP.RECT PR PRN (21:11)
[2018-12-22] MEDS ORDERED: ONDANSETRON HCL INJ/PF 4 MG/2 ML SDV IV PRN (21:11)
[2018-12-22] MEDS ORDERED: IPRATROPIUM/ALBUTEROL 0.5-2.5 MG/3 ML AMPUL NEB PRN (21:11)
[2018-12-22] MEDS ORDERED: VANCOMYCIN HCL INJ 1000 MG VIAL IV ONE (21:12)
[2018-12-22] MEDS ORDERED: NORMAL SALINE 1000 ML 1,000 ML IV SCH (21:15)
[2018-12-22] MEDS ORDERED: VANCOMYCIN HCL 0 MG in DEXTROSE 5%-WATER 250 ML IV NR (21:15)
[2018-12-22] MEDS ORDERED: KETOROLAC TROMETHAMINE INJ/PF 30 MG/1 ML SDV IV PRN (21:21)
[2018-12-22] MEDS ORDERED: NORMAL SALINE 1000 ML 1,000 ML IV ONE ×2 (21:47)
[2018-12-22 21:53] LABS: URINE AMPHETAMINES SCREEN UNCONFIRMED POSITIVE; URINE BARBITURATES SCREEN UNCONFIRMED POSITIVE; URINE BENZODIAZEPINES SCREEN NEGATIVE; URINE COCAINE SCREEN NEGATIVE; URINE MARIJUANA (THC) SCREEN NEGATIVE; URINE METHADONE SCREEN NEGATIVE; URINE PHENCYCLIDINE SCREEN NEGATIVE
[2018-12-22] MEDS ORDERED: LIDOCAINE 0.5% INJ-PF (5 MG/ML) 50 ML SDV ONE (22:01)
[2018-12-22] MEDS ORDERED: LIDOCAINE 1% INJ-PF (10 MG/ML) 30 ML SDV ONE (22:10)
[2018-12-22 23:21] LABS: APPEARANCE ALL TUBES CLEAR; COLOR ALL TUBES COLORLESS; CSF TUBE NUMBER 1; RED BLOOD CELL,CSF 396 /uL (0-10); VOLUME TUBE 1 1.5 CC; VOLUME TUBE 3 1.5 CC; WHITE BLOOD CELL,CSF 2 /uL (0-5)
[2018-12-22 23:23] LABS: APPEARANCE ALL TUBES CLEAR; COLOR ALL TUBES COLORLESS; CSF TUBE NUMBER 4; VOLUME TUBE 1 1.5 CC; VOLUME TUBE 3 1.5 CC
[2018-12-22 23:24] LABS: RED BLOOD CELL,CSF 28 /uL (0-10); WHITE BLOOD CELL,CSF 1 /uL (0-5)
[2018-12-22 23:32] LABS: GLUCOSE,CSF 83 mg/dL (40-70); PROTEIN,CSF 69 mg/dL (12-60)
[2018-12-23] MEDS: NORMAL SALINE 1000 ML 1,000 ML IV PRN ×3 (01:03→18:42)
[2018-12-23] MEDS: HEPARIN SOD (PORCINE) 5,000 UNIT/ML 1 ML SYRINGE SUBCUT SCH ×4 (01:04→21:37)
[2018-12-23 05:30] LABS: ABSOLUTE EOSINOPHILS # (AUTO) 0.1 10^3/uL (0.0-0.6); ABSOLUTE LYMPHOCYTES (AUTO) 1.4 10^3/uL (0.5-4.7); ABSOLUTE MONOCYTES (AUTO) 1.4 10^3/uL (0.1-1.4); ABSOLUTE NEUT (AUTO) 9.2 10^3/uL (1.7-8.2); BASOPHILS % (AUTO) 0.4 % (0-2); EOSINOPHILS % (AUTO) 0.5 % (0-6); HEMATOCRIT 39.8 % (36.0-47.0); LYMPHOCYTES % (AUTO) 11.3 % (13-45); MEAN CORPUSCULAR HEMOGLOBIN 30.2 pg (27.0-33.4); MEAN CORPUSCULAR VOLUME 89 fl (80-97); MONOCYTES % (AUTO) 11.6 % (3-13); PLATELET COUNT 224 10^3/uL (150-450); RED BLOOD COUNT 4.48 10^6/uL (3.72-5.28); RED CELL DISTRIBUTION WIDTH 12.8 % (11.5-14.0); SEGMENTED NEUTROPHILS % (AUTO) 76.2 % (42-78); TOTAL CELLS COUNTED % (AUTO) 100 %; WHITE BLOOD COUNT 12.1 10^3/uL (4.0-10.5)
[2018-12-23 05:48] LABS: ANION GAP 6 (5-19); BLOOD UREA NITROGEN 24 mg/dL (7-20); CALCIUM 9.9 mg/dL (8.4-10.2); CARBON DIOXIDE 19 mmol/L (22-30); CHLORIDE 118 mmol/L (98-107); LITHIUM 1.5 mEq/L (0.6-1.2); SODIUM 142.9 mmol/L (137-145)
[2018-12-23 05:49] LABS: GLUCOSE 106 mg/dL (75-110)
[2018-12-23 05:53] LABS: HEMOGLOBIN 13.5 g/dL (12.0-15.5)
--- NOTE | 2018-12-23 06:09 | PDOC H&P ---
History of Present Illness Admission Date/PCP: 12/22/18 21:23 GARTH MITCHELL MD Patient complains of: Altered mental status History of Present Illness: DONALD LAGOS is a 73 year old female who presents with altered mental status and subsequently the history is obtained by the medical record. Past medical history includes Parkinson's disease, bipolar disorder, schizophrenia and chronic bedbound state presenting with change in her baseline mental status. She is nonverbal with fever, leukocytosis, toxic lithium level and questionable UTI. She receives empiric antibiotics for meningitis, LP performed with unremarkable CSF fluid. Past Medical History Cardiac Medical History: Reports: Hyperlipidema Denies: Myocardial Infarction, Hypertension Pulmonary Medical History: Reports: None Denies: Asthma, Tuberculosis EENT Medical History: Reports: None Neurological Medical History: Reports: Other - History of Parkinson's disease Denies: Seizures Endocrine Medical History: Reports: None Renal/ Medical History: Reports: None Malignancy Medical History: Reports: None GI Medical History: Reports: None Denies: Hepatitis, Hiatal Hernia Musculoskeltal Medical History: Reports: None Skin Medical History: Reports: None Psychiatric Medical History: Reports: Bipolar Disorder Traumatic Medical History: Reports: None Hematology: Denies: Anemia, Sickle Cell Disease Infectious Medical History: Reports: None Past Surgical History Past Surgical History: Reports: Hysterectomy Denies: Amputation, Mastectomy, Pacemaker Social History Information Source: [facility] Records Lives with: Family, Spouse/Significant other Smoking Status: Unknown if Ever Smoked Hx Recreational Drug Use: No Hx Prescription Drug Abuse: No - Advance Directive Resuscitation Status: Full Code Family History Family History: Other - Unobtainable Parental Family History Reviewed: No - Unobtainable Children Family History Reviewed: No Sibling(s) Family History Reviewed.: No Medication/Allergy Home Medications: Aspirin [Ecotrin] 81 mg PO DAILY 11/08/13 Ca Cmb No.1/Vit D3/B-6/FA/B12 [Vitamin D3 1,000 Unit Tablet] 1 tab PO DAILY 11/08/13 Donepezil HCl [Aricept] 10 mg PO DAILY 11/08/13 Folic Acid/Multivit-Min/Lutein [Centrum Silver Chewable Tablet] 1 tab PO DAILY 11/08/13 Levomefolate/Algal Oil [[place]-Algal Oil 15 mg Capsule] 1 cap PO DAILY 11/08/13 [place] Carbonate 1 tab PO DAILY 11/08/13 [place] Carbonate [[place] Carbonate ER] 300 mg PO DAILY 11/08/13 Metformin HCl [Glucophage] 500 mg PO DAILY 11/08/13 [place]-3 Fatty Acids/Fish Oil [[place] 3 Fish Oil Softgel] 1 cap PO DAILY 11/08/13 Pravastatin Sodium [Pravachol] 40 mg PO DAILY 11/08/13 Quetiapine Fumarate [Seroquel] 800 mg PO DAILY 11/08/13 Allergies/Adverse Reactions: No Known Allergies Allergy (Verified 12/22/18 17:30) Review of Systems ROS unobtainable: Due to mental status Physical Exam Vital Signs: Temp Pulse Resp BP Pulse Ox 97.9 F 91 18 144/58 H 100 12/23/18 03:18 12/23/18 03:18 12/23/18 03:18 12/23/18 03:18 12/23/18 03:18 Intake & Output 12/21/18 12/22/18 12/23/18 11:59 11:59 11:59 Intake Total 3050 Balance 3050 Weight 65.771 kg General appearance: PRESENT: mild distress, thin. ABSENT: cooperative, disheveled Head exam: PRESENT: atraumatic, normocephalic Eye exam: PRESENT: conjunctiva pink, EOMI, PERRLA. ABSENT: nystagmus, scleral icterus Ear exam: PRESENT: normal external ear exam Mouth exam: PRESENT: dry mucosa, neck supple, tongue midline. ABSENT: laceration Neck exam: ABSENT: carotid bruit, JVD, lymphadenopathy, tenderness, thyromegaly, tracheal deviation Respiratory exam: PRESENT: clear to auscultation concepcion. ABSENT: rales, rhonchi, wheezes Cardiovascular exam: PRESENT: RRR, tachycardia. ABSENT: diastolic murmur, rubs, systolic murmur Pulses: PRESENT: normal dorsalis pedis pul Vascular exam: PRESENT: normal capillary refill GI/Abdominal exam: PRESENT: normal bowel sounds, soft. ABSENT: distended, guarding, mass, organolmegaly, rebound, tenderness Rectal exam: PRESENT: deferred Extremities exam: PRESENT: full ROM. ABSENT: calf tenderness, clubbing, pedal edema Musculoskeletal exam: PRESENT: full ROM, other - Tremor. ABSENT: ambulatory, deformity, dislocation Neurological exam: PRESENT: alert, altered, awake, oriented to person, CN II-XII grossly intact, other - Coarse tremors. ABSENT: oriented to place, oriented to time, oriented to situation, reflexes normal Psychiatric exam: PRESENT: unusual affect Skin exam: PRESENT: dry, intact, warm. ABSENT: cyanosis, rash Results Laboratory Results: 12/22/18 12/22/18 12/22/18 16:59 16:59 16:59 WBC 14.9 H RBC 5.31 H Hgb 15.9 H Hct 46.9 MCV 88 MCH 29.8 MCHC 33.8 RDW 12.7 Plt Count 288 Seg Neutrophils % 76.1 Lymphocytes % 11.8 L Monocytes % 11.2 Eosinophils % 0.6 Basophils % 0.3 Absolute Neutrophils 11.3 H Absolute Lymphocytes 1.8 Absolute Monocytes 1.7 H Absolute Eosinophils 0.1 Absolute Basophils 0.0 VBG pH VBG pCO2 VBG HCO3 VBG Base Excess Sodium 140.4 Potassium 4.6 Chloride 106 Carbon Dioxide 23 Anion Gap 11 BUN 36 H Creatinine 0.84 Est GFR ( Amer) > 60 Est GFR (Non-Af Amer) > 60 Glucose 105 Lactic Acid 1.2 Calcium 11.7 H Magnesium Total Bilirubin 0.6 AST 43 H ALT 50 Alkaline Phosphatase 118 Total Protein 7.3 Albumin 4.5 TSH Urine Color Urine Appearance Urine pH Ur Specific [place] Urine Protein Urine Glucose (UA) Urine Ketones Urine Blood Urine Nitrite Ur Leukocyte Esterase Urine WBC (Auto) Urine RBC (Auto) Fluid Tube Number CSF Volume CSF Appearance CSF Color CSF WBC CSF RBC CSF Glucose CSF Total Protein 12/22/18 12/22/18 12/22/18 16:59 16:59 16:59 WBC RBC Hgb Hct MCV MCH MCHC RDW Plt Count Seg Neutrophils % Lymphocytes % Monocytes % Eosinophils % Basophils % Absolute Neutrophils Absolute Lymphocytes Absolute Monocytes Absolute Eosinophils Absolute Basophils VBG pH 7.40 VBG pCO2 41.2 VBG HCO3 25.0 VBG Base Excess 0.2 Sodium Potassium Chloride Carbon Dioxide Anion Gap BUN Creatinine Est GFR ( Amer) Est GFR (Non-Af Amer) Glucose Lactic Acid Calcium Magnesium 2.3 Total Bilirubin AST ALT Alkaline Phosphatase Total Protein Albumin TSH 1.84 Urine Color Urine Appearance Urine pH Ur Specific [place] Urine Protein Urine Glucose (UA) Urine Ketones Urine Blood Urine Nitrite Ur Leukocyte Esterase Urine WBC (Auto) Urine RBC (Auto) Fluid Tube Number CSF Volume CSF Appearance CSF Color CSF WBC CSF RBC CSF Glucose CSF Total Protein 0412/22/18 12/22/18 17:06 22:37 22:37 WBC RBC Hgb Hct MCV MCH MCHC RDW Plt Count Seg Neutrophils % Lymphocytes % Monocytes % Eosinophils % Basophils % Absolute Neutrophils Absolute Lymphocytes Absolute Monocytes Absolute Eosinophils Absolute Basophils VBG pH VBG pCO2 VBG HCO3 VBG Base Excess Sodium Potassium Chloride Carbon Dioxide Anion Gap BUN Creatinine Est GFR ( Amer) Est GFR (Non-Af Amer) Glucose Lactic Acid Calcium Magnesium Total Bilirubin AST ALT Alkaline Phosphatase Total Protein Albumin TSH Urine Color YELLOW Urine Appearance CLEAR Urine pH 6.0 Ur Specific [place] 1.016 Urine Protein NEGATIVE Urine Glucose (UA) NEGATIVE Urine Ketones 20 H Urine Blood NEGATIVE Urine Nitrite NEGATIVE Ur Leukocyte Esterase MODERATE H Urine WBC (Auto) 9 Urine RBC (Auto) 2 Fluid Tube Number 1 CSF Volume 6.0 CSF Appearance CLEAR CSF Color COLORLESS CSF WBC 2 CSF RBC 396 CSF Glucose 83 H CSF Total Protein 69 H 12/22/18 23:09 WBC RBC Hgb Hct MCV MCH MCHC RDW Plt Count Seg Neutrophils % Lymphocytes % Monocytes % Eosinophils % Basophils % Absolute Neutrophils Absolute Lymphocytes Absolute Monocytes Absolute Eosinophils Absolute Basophils VBG pH VBG pCO2 VBG HCO3 VBG Base Excess Sodium Potassium Chloride Carbon Dioxide Anion Gap BUN Creatinine Est GFR ( Amer) Est GFR (Non-Af Amer) Glucose Lactic Acid Calcium Magnesium Total Bilirubin AST ALT Alkaline Phosphatase Total Protein Albumin TSH Urine Color Urine Appearance Urine pH Ur Specific [place] Urine Protein Urine Glucose (UA) Urine Ketones Urine Blood Urine Nitrite Ur Leukocyte Esterase Urine WBC (Auto) Urine RBC (Auto) Fluid Tube Number 4 CSF Volume 6.0 CSF Appearance CLEAR CSF Color COLORLESS CSF WBC 1 CSF RBC 28 CSF Glucose CSF Total Protein Impressions: Chest X-Ray 12/22/18 16:44 IMPRESSION: NO ACUTE RADIOGRAPHIC FINDING IN THE CHEST. Head CT 12/22/18 18:42 IMPRESSION: No acute intracranial event. EVIDENCE OF ACUTE STROKE: NO. Assessment and Plan - Diagnosis (1) Altered mental status Qualifiers: Altered mental status type: delirium Qualified Code(s): R41.0 - Disorientation, unspecified Is this a current diagnosis for this admission?: Yes Plan: Complicated by schizophrenia, lithium toxicity and urinary tract infection. Empiric antibiotics, IV fluid challenge, follow-up lithium level and supportive care (2) [place] toxicity Qualifiers: Encounter type: initial encounter Injury intent: undetermined intent Qualified Code(s): T56.894A - Toxic effect of other metals, undetermined, initial encounter Is this a current diagnosis for this admission?: Yes Plan: Mildly elevated of unclear chronicity. Follow-up lithium level and chemistry (3) Urinary tract infection Qualifiers: Urinary tract infection type: acute cystitis Hematuria presence: without hematuria Qualified Code(s): N30.00 - Acute cystitis without hematuria Is this a current diagnosis for this admission?: Yes Plan: Empiric antibiotics initiated. Follow-up urine culture - Time Time Spent with patient: 35 or more minutes - Inpatient Certification Medical Necessity: Significant Comorbidiites Make Outpatient Treatment Too Risky, Need Close Monitoring Due to Risk of Patient Decompensation
--- NOTE | 2018-12-23 07:50 | EKG REPORT ---
SEVERITY:- ABNORMAL ECG - SINUS RHYTHM NONSPECIFIC ST-T CHANGES , DIFFUSE : Confirmed by: Biju Munson MD 23-Dec-2018 07:49:23
[2018-12-23] MEDS ORDERED: VANCOMYCIN HCL 500 MG in DEXTROSE 5%-WATER 100 ML IV SCH (10:00)
--- NOTE | 2018-12-23 10:24 | RADIOLOGY REPORT (SQ) ---
EXAM DESCRIPTION: LUMBAR PUNCTURE; FLUORO/NEEDLE PLACEMENT/SPINE COMPLETED DATE/TIME: 12/22/2018 11:03 pm REASON FOR STUDY: Altered mental status; ALTERED MENTAL STATUS COMPARISON: None. FLUOROSCOPY TIME: 10 seconds 1 images saved to PACS. TECHNIQUE: Fluoroscopic guided lumbar puncture. LIMITATIONS: None. PROCEDURE: After written consent and assessment were obtained, the patient was brought into the fluo roscopy room and placed prone on the table. The patient's lower back was prepped in a sterile fashio n and an entry site was selected under live fluoroscopic guidance. The entry site was anesthetized wi th 1% lidocaine. A 20 gauge needle was advanced through the skin and into the thecal sac at the level of L2-L3. After approximately 4 ml was drained, the needle was removed and a sterile bandage was alexandria carmen of the site. Specimens were sent to the lab for testing. A fluoroscopic spot image was saved to PACS confirming level access. FINDINGS: Clear CSF IMPRESSION: Lumbar puncture under fluoroscopy. No immediate complication. COMMENT: Patient medication list reviewed: Yes- Quality ID# [id number]:Eligible professional attests to doc umenting in the medical record they obtained, updated, or reviewed the patient's current medications. . Quality ID [id number]: Final reports for procedures using fluoroscopy that document radiation exposure lisette stephan, or exposure time and number of fluorographic images (if radiation exposure indices are not avail able) TECHNICAL DOCUMENTATION: JOB ID: [id number] [employer]- All Rights Reserved Reading location - IP/workstation name: [email or web address]
--- NOTE | 2018-12-23 16:07 | PDOC PROGRESS REPORT ---
Subjective Progress Note for:: 12/23/18 Subjective:: No adverse events overnight. She remains in three-point restraints for her safety because she still encephalopathic. She is not responding to questions and following commands. She is awake and she appears a bit agitated. Reason For Visit: AMS SEPSIS UTI MENINGITIS Physical Exam Vital Signs: Temp Pulse Resp BP Pulse Ox 98.8 F 94 20 136/79 H 93 12/23/18 11:29 12/23/18 11:29 12/23/18 11:29 12/23/18 11:29 12/23/18 11:29 Intake & Output 12/22/18 12/23/18 12/24/18 06:59 06:59 06:59 Intake Total 3050 Output Total 185 Balance 2865 Weight 58.6 kg General appearance: PRESENT: no acute distress, disheveled Respiratory exam: PRESENT: clear to auscultation concepcion, symmetrical, unlabored. ABSENT: accessory muscle use, crackles, prolonged expiratory phas, rhonchi, tachypnea, wheezes Cardiovascular exam: PRESENT: RRR, +S1, +S2 Pulses: PRESENT: normal carotid pulses Vascular exam: PRESENT: normal capillary refill GI/Abdominal exam: PRESENT: normal bowel sounds, soft. ABSENT: distended, guarding, rebound, tenderness Extremities exam: ABSENT: clubbing, pedal edema Musculoskeletal exam: PRESENT: normal inspection. ABSENT: deformity Neurological exam: PRESENT: altered, awake, other - She has some motor agitation and intermittent tremors Skin exam: PRESENT: dry, warm Results Laboratory Results: 12/23/18 05:05 12/23/18 05:05 12/22/18 12/22/18 12/22/18 16:59 16:59 16:59 WBC 14.9 H RBC 5.31 H Hgb 15.9 H Hct 46.9 MCV 88 MCH 29.8 MCHC 33.8 RDW 12.7 Plt Count 288 Seg Neutrophils % 76.1 Lymphocytes % 11.8 L Monocytes % 11.2 Eosinophils % 0.6 Basophils % 0.3 Absolute Neutrophils 11.3 H Absolute Lymphocytes 1.8 Absolute Monocytes 1.7 H Absolute Eosinophils 0.1 Absolute Basophils 0.0 VBG pH VBG pCO2 VBG HCO3 VBG Base Excess Sodium 140.4 Potassium 4.6 Chloride 106 Carbon Dioxide 23 Anion Gap 11 BUN 36 H Creatinine 0.84 Est GFR ( Amer) > 60 Est GFR (Non-Af Amer) > 60 Glucose 105 Lactic Acid 1.2 Calcium 11.7 H Magnesium Total Bilirubin 0.6 AST 43 H ALT 50 Alkaline Phosphatase 118 Total Protein 7.3 Albumin 4.5 TSH Urine Color Urine Appearance Urine pH Ur Specific [place] Urine Protein Urine Glucose (UA) Urine Ketones Urine Blood Urine Nitrite Ur Leukocyte Esterase Urine WBC (Auto) Urine RBC (Auto) Fluid Tube Number CSF Volume CSF Appearance CSF Color CSF WBC CSF RBC CSF Glucose CSF Total Protein 12/22/18 12/22/18 12/22/18 16:59 16:59 16:59 WBC RBC Hgb Hct MCV MCH MCHC RDW Plt Count Seg Neutrophils % Lymphocytes % Monocytes % Eosinophils % Basophils % Absolute Neutrophils Absolute Lymphocytes Absolute Monocytes Absolute Eosinophils Absolute Basophils VBG pH 7.40 VBG pCO2 41.2 VBG HCO3 25.0 VBG Base Excess 0.2 Sodium Potassium Chloride Carbon Dioxide Anion Gap BUN Creatinine Est GFR ( Amer) Est GFR (Non-Af Amer) Glucose Lactic Acid Calcium Magnesium 2.3 Total Bilirubin AST ALT Alkaline Phosphatase Total Protein Albumin TSH 1.84 Urine Color Urine Appearance Urine pH Ur Specific [place] Urine Protein Urine Glucose (UA) Urine Ketones Urine Blood Urine Nitrite Ur Leukocyte Esterase Urine WBC (Auto) Urine RBC (Auto) Fluid Tube Number CSF Volume CSF Appearance CSF Color CSF WBC CSF RBC CSF Glucose CSF Total Protein 12/22/18 12/22/18 12/22/18 17:06 22:37 22:37 WBC RBC Hgb Hct MCV MCH MCHC RDW Plt Count Seg Neutrophils % Lymphocytes % Monocytes % Eosinophils % Basophils % Absolute Neutrophils Absolute Lymphocytes Absolute Monocytes Absolute Eosinophils Absolute Basophils VBG pH VBG pCO2 VBG HCO3 VBG Base Excess Sodium Potassium Chloride Carbon Dioxide Anion Gap BUN Creatinine Est GFR ( Amer) Est GFR (Non-Af Amer) Glucose Lactic Acid Calcium Magnesium Total Bilirubin AST ALT Alkaline Phosphatase Total Protein Albumin TSH Urine Color YELLOW Urine Appearance CLEAR Urine pH 6.0 Ur Specific [place] 1.016 Urine Protein NEGATIVE Urine Glucose (UA) NEGATIVE Urine Ketones 20 H Urine Blood NEGATIVE Urine Nitrite NEGATIVE Ur Leukocyte Esterase MODERATE H Urine WBC (Auto) 9 Urine RBC (Auto) 2 Fluid Tube Number 1 CSF Volume 6.0 CSF Appearance CLEAR CSF Color COLORLESS CSF WBC 2 CSF RBC 396 CSF Glucose 83 H CSF Total Protein 69 H 12/22/18 12/23/18 12/23/18 23:09 05:05 05:05 WBC 12.1 H RBC 4.48 Hgb 13.5 D Hct 39.8 MCV 89 MCH 30.2 MCHC 34.0 RDW 12.8 Plt Count 224 Seg Neutrophils % 76.2 Lymphocytes % 11.3 L Monocytes % 11.6 Eosinophils % 0.5 Basophils % 0.4 Absolute Neutrophils 9.2 H Absolute Lymphocytes 1.4 Absolute Monocytes 1.4 Absolute Eosinophils 0.1 Absolute Basophils 0.0 VBG pH VBG pCO2 VBG HCO3 VBG Base Excess Sodium 142.9 Potassium 4.0 Chloride 118 H Carbon Dioxide 19 L Anion Gap 6 BUN 24 H Creatinine 0.80 Est GFR ( Amer) > 60 Est GFR (Non-Af Amer) > 60 Glucose 106 Lactic Acid Calcium 9.9 Magnesium Total Bilirubin AST ALT Alkaline Phosphatase Total Protein Albumin TSH Urine Color Urine Appearance Urine pH Ur Specific [place] Urine Protein Urine Glucose (UA) Urine Ketones Urine Blood Urine Nitrite Ur Leukocyte Esterase Urine WBC (Auto) Urine RBC (Auto) Fluid Tube Number 4 CSF Volume 6.0 CSF Appearance CLEAR CSF Color COLORLESS CSF WBC 1 CSF RBC 28 CSF Glucose CSF Total Protein 12/23/18 05:05 Creatine Kinase 729 H Impressions: Guidance Fluoroscopy 12/22/18 00:00 IMPRESSION: Lumbar puncture under fluoroscopy. No immediate complication. Chest X-Ray 12/22/18 16:44 IMPRESSION: NO ACUTE RADIOGRAPHIC FINDING IN THE CHEST. Head CT 12/22/18 18:42 IMPRESSION: No acute intracranial event. EVIDENCE OF ACUTE STROKE: NO. Lumbar Puncture 12/22/18 21:13 IMPRESSION: Lumbar puncture under fluoroscopy. No immediate complication. Assessment and Plan - Diagnosis (1) [place] toxicity Qualifiers: Encounter type: initial encounter Injury intent: accidental or unintentional Qualified Code(s): T56.891A - Toxic effect of other metals, accidental (unintentional), initial encounter Is this a current diagnosis for this admission?: Yes Plan: [place] level down to 1.5. Will anticipate the COMMERCIAL REAL ESTATE SALES MANAGER concentration to lag behind the serum concentration of lithium. We will give her some time for it to wash out. We will continue to treat supportively. - Time Time Spent with patient: 25-34 minutes
[2018-12-24] MEDS: HEPARIN SOD (PORCINE) 5,000 UNIT/ML 1 ML SYRINGE SUBCUT SCH ×3 (05:05→21:04)
[2018-12-24] MEDS: NORMAL SALINE 1000 ML 1,000 ML IV PRN (05:05)
[2018-12-24 05:19] LABS: ABSOLUTE NEUT (AUTO) 8.3 10^3/uL (1.7-8.2); BASOPHILS % (AUTO) 0.3 % (0-2); EOSINOPHILS % (AUTO) 0.2 % (0-6); HEMATOCRIT 40.3 % (36.0-47.0); HEMOGLOBIN 13.5 g/dL (12.0-15.5); MEAN CORPUSCULAR HEMOGLOBIN 30.2 pg (27.0-33.4); MEAN CORPUSCULAR HGB CONC 33.6 g/dL (32.0-36.0); MEAN CORPUSCULAR VOLUME 90 fl (80-97); MONOCYTES % (AUTO) 9.7 % (3-13); PLATELET COUNT 194 10^3/uL (150-450); RED BLOOD COUNT 4.49 10^6/uL (3.72-5.28); RED CELL DISTRIBUTION WIDTH 13.1 % (11.5-14.0); SEGMENTED NEUTROPHILS % (AUTO) 79.8 % (42-78); TOTAL CELLS COUNTED % (AUTO) 100 %; WHITE BLOOD COUNT 10.5 10^3/uL (4.0-10.5)
[2018-12-24 05:41] LABS: ANION GAP 6 (5-19); BLOOD UREA NITROGEN 16 mg/dL (7-20); CALCIUM 10.3 mg/dL (8.4-10.2); CARBON DIOXIDE 19 mmol/L (22-30); CHLORIDE 130 mmol/L (98-107); GLUCOSE 107 mg/dL (75-110); POTASSIUM 3.7 mmol/L (3.6-5.0); SODIUM 154.9 mmol/L (137-145)
[2018-12-24] MEDS ORDERED: POTASSI CL 20 MEQ/1/2NS 1L 20 MEQ/1,000 ML RTUINJ IV PRN (08:49)
[2018-12-24] MEDS: POTASSI CL 20 MEQ/D5-1/2NS 1L 1000 ML IV PRN ×2 (11:17→21:26)
[2018-12-24 17:13] LABS: BLOOD UREA NITROGEN 16 mg/dL (7-20); CALCIUM 10.6 mg/dL (8.4-10.2); GLUCOSE 154 mg/dL (75-110)
[2018-12-24 17:21] LABS: ANION GAP 3 (5-19)
[2018-12-24 17:22] LABS: CARBON DIOXIDE 18 mmol/L (22-30); CHLORIDE 136 mmol/L (98-107); POTASSIUM 3.6 mmol/L (3.6-5.0)
[2018-12-24 17:23] LABS: SODIUM 156.5 mmol/L (137-145)
--- NOTE | 2018-12-24 17:43 | PDOC PROGRESS REPORT ---
Subjective Progress Note for:: 12/24/18 Subjective:: No adverse events overnight. Clinical condition remains unchanged. She has had good urine output but her sodium was noted to be elevated this morning. She was on normal saline yesterday. Reason For Visit: AMS SEPSIS UTI MENINGITIS Physical Exam Vital Signs: Temp Pulse Resp BP Pulse Ox 98.0 F 99 16 155/70 H 91 L 12/24/18 04:03 12/24/18 14:00 12/24/18 11:00 12/24/18 04:03 12/24/18 11:00 Intake & Output 12/23/18 12/24/18 12/25/18 06:59 06:59 06:59 Intake Total 3050 2000 Output Total 185 2350 Balance 2865 -350 Weight 58.6 kg 61.4 kg General appearance: PRESENT: no acute distress, disheveled Respiratory exam: PRESENT: clear to auscultation concepcion, symmetrical, unlabored. ABSENT: accessory muscle use, crackles, prolonged expiratory phas, rhonchi, tachypnea, wheezes Cardiovascular exam: PRESENT: RRR, +S1, +S2 Pulses: PRESENT: normal carotid pulses Vascular exam: PRESENT: normal capillary refill GI/Abdominal exam: PRESENT: normal bowel sounds, soft. ABSENT: distended, gu arding, rebound, tenderness Extremities exam: ABSENT: clubbing, pedal edema Musculoskeletal exam: PRESENT: normal inspection. ABSENT: deformity Neurological exam: PRESENT: altered, awake, other - She has some motor agitation and intermittent tremors Skin exam: PRESENT: dry, warm Results Laboratory Results: 12/24/18 04:51 12/24/18 16:20 12/24/18 12/24/18 12/24/18 04:51 04:51 16:20 WBC 10.5 RBC 4.49 Hgb 13.5 Hct 40.3 MCV 90 MCH 30.2 MCHC 33.6 RDW 13.1 Plt Count 194 Seg Neutrophils % 79.8 H Lymphocytes % 10.0 L Monocytes % 9.7 Eosinophils % 0.2 Basophils % 0.3 Absolute Neutrophils 8.3 H Absolute Lymphocytes 1.0 Absolute Monocytes 1.0 Absolute Eosinophils 0.0 Absolute Basophils 0.0 Sodium 154.9 H 156.5 H Potassium 3.7 3.6 Chloride 130 H 136 H Carbon Dioxide 19 L 18 L Anion Gap 6 3 L BUN 16 16 Creatinine 0.77 0.74 Est GFR ( Amer) > 60 > 60 Est GFR (Non-Af Amer) > 60 > 60 Glucose 107 154 H Calcium 10.3 H 10.6 H 12/22/18 17:06 Catheterized Urine Urine Culture - Final NO GROWTH 2 DAYS 12/23/18 05:05 Creatine Kinase 729 H Impressions: Guidance Fluoroscopy 12/22/18 00:00 IMPRESSION: Lumbar puncture under fluoroscopy. No immediate complication. Chest X-Ray 12/22/18 16:44 IMPRESSION: NO ACUTE RADIOGRAPHIC FINDING IN THE CHEST. Head CT 12/22/18 18:42 IMPRESSION: No acute intracranial event. EVIDENCE OF ACUTE STROKE: NO. Lumbar Puncture 12/22/18 21:13 IMPRESSION: Lumbar puncture under fluoroscopy. No immediate complication. Assessment and Plan - Diagnosis (1) [place] toxicity Qualifiers: Encounter type: initial encounter Injury intent: accidental or unintentional Qualified Code(s): T56.891A - Toxic effect of other metals, accidental (unintentional), initial encounter Is this a current diagnosis for this admission?: Yes Plan: Continue to hold lithium. Serum levels are now normal. Anticipate that the FACILITIES PLANT ENGINEER levels will lag behind this for a few days. (2) Hypernatremia Is this a current diagnosis for this admission?: Yes Plan: Likely secondary to lithium toxicity. Sodium levels were normal and then she got some normal saline and I suspect she is retaining all the sodium and that her urine is dilute. We have changed up her IV fluids to D5 half-normal saline with some potassium. If her sodium is still elevated tomorrow, we will have to switch her to D5W with some potassium. If it continues to remain elevated despite this intervention, she may need a nephrology consultation. - Time Time Spent with patient: 25-34 minutes
[2018-12-25] MEDS: HEPARIN SOD (PORCINE) 5,000 UNIT/ML 1 ML SYRINGE SUBCUT SCH ×3 (05:12→21:04)
[2018-12-25 05:35] LABS: BLOOD UREA NITROGEN 14 mg/dL (7-20); CALCIUM 10.2 mg/dL (8.4-10.2); GLUCOSE 176 mg/dL (75-110); POTASSIUM 3.6 mmol/L (3.6-5.0)
[2018-12-25 05:41] LABS: CARBON DIOXIDE 21 mmol/L (22-30); CHLORIDE 136 mmol/L (98-107); SODIUM 159.7 mmol/L (137-145)
[2018-12-25 05:42] LABS: ABSOLUTE EOSINOPHILS # (AUTO) 0.1 10^3/uL (0.0-0.6); ABSOLUTE LYMPHOCYTES (AUTO) 1.2 10^3/uL (0.5-4.7); ABSOLUTE MONOCYTES (AUTO) 1.2 10^3/uL (0.1-1.4); ABSOLUTE NEUT (AUTO) 7.4 10^3/uL (1.7-8.2); BASOPHILS % (AUTO) 0.2 % (0-2); HEMOGLOBIN 13.5 g/dL (12.0-15.5); MEAN CORPUSCULAR HEMOGLOBIN 30.5 pg (27.0-33.4); MEAN CORPUSCULAR HGB CONC 33.9 g/dL (32.0-36.0); MEAN CORPUSCULAR VOLUME 90 fl (80-97); MONOCYTES % (AUTO) 12.4 % (3-13); PLATELET COUNT 192 10^3/uL (150-450); RED BLOOD COUNT 4.44 10^6/uL (3.72-5.28); RED CELL DISTRIBUTION WIDTH 13.1 % (11.5-14.0); SEGMENTED NEUTROPHILS % (AUTO) 74.4 % (42-78); TOTAL CELLS COUNTED % (AUTO) 100 %
[2018-12-25 05:56] LABS: ANION GAP 3 (5-19)
[2018-12-25] MEDS: POTASSI CL 20 MEQ/D5-1/2NS 1L 1000 ML IV PRN (07:22)
[2018-12-25] MEDS ORDERED: DEXTROSE 5%-WATER 1000 ML 1,000 ML with POTASSIUM CHLORIDE 20 MEQ IV PRN ×4 (09:02→20:00)
--- NOTE | 2018-12-25 15:14 | PDOC PROGRESS REPORT ---
Subjective Progress Note for:: 12/25/18 Subjective:: No adverse events overnight. Clinical condition remains unchanged. She continues to have good urine output but her sodium went even higher despite her being put on more dilute IV fluids. Reason For Visit: AMS SEPSIS UTI MENINGITIS Physical Exam Vital Signs: Temp Pulse Resp BP Pulse Ox 97.3 F 94 20 160/88 H 95 12/25/18 11:42 12/25/18 11:42 12/25/18 11:42 12/25/18 11:42 12/25/18 11:42 Intake & Output 12/24/18 12/25/18 12/26/18 06:59 06:59 06:59 Intake Total 1999 1000 1188 Output Total 2350 1950 400 Balance -350 -950 788 Weight 61.4 kg 62.2 kg General appearance: PRESENT: no acute distress, disheveled, mildly agitated and in three-point restraints Respiratory exam: PRESENT: clear to auscultation concepcion, symmetrical, unlabored. ABSENT: accessory muscle use, crackles, prolonged expiratory phas, rhonchi, tachypnea, wheezes Cardiovascular exam: PRESENT: RRR, +S1, +S2 Pulses: PRESENT: normal carotid pulses Vascular exam: PRESENT: normal capillary refill GI/Abdominal exam: PRESENT: normal bowel sounds, soft. ABSENT: distended, guarding, rebound, tenderness Extremities exam: ABSENT: clubbing, pedal edema Musculoskeletal exam: PRESENT: normal inspection. ABSENT: deformity Neurological exam: PRESENT: altered, awake, other - She has some motor agitation and intermittent tremors Skin exam: PRESENT: dry, warm Results Laboratory Results: 12/25/18 04:36 12/25/18 04:36 12/24/18 12/25/18 12/25/18 16:20 04:36 04:36 WBC 10.0 RBC 4.44 Hgb 13.5 Hct 40.0 MCV 90 MCH 30.5 MCHC 33.9 RDW 13.1 Plt Count 192 Seg Neutrophils % 74.4 Lymphocytes % 12.0 L Monocytes % 12.4 Eosinophils % 1.0 Basophils % 0.2 Absolute Neutrophils 7.4 Absolute Lymphocytes 1.2 Absolute Monocytes 1.2 Absolute Eosinophils 0.1 Absolute Basophils 0.0 Sodium 156.5 H 159.7 H Potassium 3.6 3.6 Chloride 136 H 136 H Carbon Dioxide 18 L 21 L Anion Gap 3 L 3 L BUN 16 14 Creatinine 0.74 0.75 Est GFR ( Amer) > 60 > 60 Est GFR (Non-Af Amer) > 60 > 60 Glucose 154 H 176 H Calcium 10.6 H 10.2 12/23/18 05:05 Creatine Kinase 729 H Impressions: Guidance Fluoroscopy 12/22/18 00:00 IMPRESSION: Lumbar puncture under fluoroscopy. No immediate complication. Chest X-Ray 12/22/18 16:44 IMPRESSION: NO ACUTE RADIOGRAPHIC FINDING IN THE CHEST. Head CT 12/22/18 18:42 IMPRESSION: No acute intracranial event. EVIDENCE OF ACUTE STROKE: NO. Lumbar Puncture 12/22/18 21:13 IMPRESSION: Lumbar puncture under fluoroscopy. No immediate complication. Assessment and Plan - Diagnosis (1) [place] toxicity Qualifiers: Encounter type: initial encounter Injury intent: accidental or unintentional Qualified Code(s): T56.891A - Toxic effect of other metals, accidental (unintentional), initial encounter Is this a current diagnosis for this admission?: Yes Plan: Continue to hold lithium. Serum levels are now normal. Anticipate that the FOOD SERVICE UTILITY WORKER levels will lag behind this for at least a couple of days. (2) Hypernatremia Is this a current diagnosis for this admission?: Yes Plan: Likely secondary to lithium toxicity. Sodium levels were normal and then she got some normal saline and I suspect she is retaining all the sodium and that her urine is dilute. We have changed up her IV fluids to D5 half-normal saline with some potassium. Sodium still elevated so we switched her to D5W with potassium. I have consulted Dr. Dalton due to her worsening hypernatremia in the setting of dilute fluid administration. - Time Time Spent with patient: 25-34 minutes
[2018-12-25 17:25] LABS: APPEARANCE,URINE CLEAR; BILIRUBIN,URINE NEGATIVE (NEGATIVE); COLOR,URINE STRAW; GLUCOSE, URINE NEGATIVE (NEGATIVE); KETONES,URINE NEGATIVE (NEGATIVE); LEUKOCYTE ESTERASE,URINE SMALL (NEGATIVE); NITRITE,URINE NEGATIVE (NEGATIVE); PROTEIN,URINE NEGATIVE (NEGATIVE); URINE SPECIFIC GRAVITY 1.008; UROBILINOGEN,URINE NEGATIVE mg/dL (<2.0)
[2018-12-25 17:36] LABS: BLOOD UREA NITROGEN 11 mg/dL (7-20); CALCIUM 10.3 mg/dL (8.4-10.2); GLUCOSE 177 mg/dL (75-110); POTASSIUM 3.6 mmol/L (3.6-5.0)
[2018-12-25 17:41] LABS: CARBON DIOXIDE 18 mmol/L (22-30); CHLORIDE 137 mmol/L (98-107); SODIUM 157.7 mmol/L (137-145)
[2018-12-25 17:44] LABS: ANION GAP 3 (5-19)
--- NOTE | 2018-12-25 20:28 | PDOC CONSULTATION ---
Consultation Consult Date: 12/25/18 Attending physician:: RADHA MITTAL Consult reason:: I was asked to see the patient due to hypernatremia with lithium toxicity. History of Present Illness Admission Date/PCP: 12/22/18 21:23 GARTH MITCHELL MD History of Present Illness: DONALD LAGOS is a 73 year old female with history of bipolar disorder, diabetes mellitus type 2, hyperlipidemia, and most recently Diagnosis of possible Parkinson's disease a week ago who was admitted on December 22, 2018 because of altered mental status. History is obtained from records and from the patient's at bedside since the patient currently has altered mental status and cannot give any history. According to the the patient had a fall slipping into the shower and ended up in the emergency room on December 12, 2018. At that time she was having resting tremors. Patient had work-up done including head CT scan which was negative. Patient was subsequently discharged home. About a week ago patient was noted to have altered mental status. She continues to have tremors. Patient saw a neurologist, Dr. Andrew who diagnosed her with possible Parkinson's disease and prescribed levodopa/carbidopa which alfred arredondo only took once. Subsequently has been said patient has difficulty swallowing. She continues to have these tremors and alteration of mental status so she presented to the emergency room 3 days ago and was subsequently admitted. Patient's oral fluid and solid intake has been diminished for the last 5 days. Upon presentation the patient's lithium level was 2.0 which is within the toxic range. Patient is being treated with lithium for the last 20 years and has been followed by Dr. Hannah her psychiatrist. Patient had a negative head CT scan and negative CSF findings after a lumbar puncture upon presentation. Patient was initially thought to have urinary tract infection and was given a dose of ceftriaxone IV but urine culture came out to be negative. Patient then was given IV fluids with 0.9 normal saline from admission until python programmer yesterday. Because of the increasing sodium level the IV fluids was switched to D5 half-normal saline yesterday and today it was switched to D5 water in the morning. Upon admission the patient had a sodium of 140.4, bicarbonate of 23, calcium of 11.7, and hemoglobin of 15.9. Her kidney function was normal. Since yesterday her sodium level started to go up to 156.5 and early this morning it was 159. Her lithium level has gone down to 1.0 yesterday. Her calcium level has gone down to 10.2. Patient is making a very good amount of urine output. For the past 2 days she was making anywhere between 6081-3745 mL of urine output per day. Her intake and output balance has been negative for the last 2 days. Patient's mental status has not change and she continues to be altered. According to the this is the first time that this is happened to her. Past Medical History Cardiac Medical History: Reports: Hyperlipidemia Endocrine Medical History: Reports: Diabetes Mellitus Type 2 Psychiatric Medical History: Reports: Bipolar Disorder Past Surgical History Past Surgical History: Reports: Hysterectomy Social History Information Source: Relative Lives with: Family, Spouse/Significant other Smoking Status: Never Smoker Frequency of Alcohol Use: None Hx Recreational Drug Use: No Hx Prescription Drug Abuse: No - Advance Directive Resuscitation Status: Full Code Family History Family History: CAD - Father, Other - Alcoholism on her father; tuberculosis in her mother Parental Family History Reviewed: Yes Children Family History Reviewed: Yes Sibling(s) Family History Reviewed.: NA Medication/Allergy Home Medications: Aripiprazole [Abilify 15 mg Tablet] 15 mg PO DAILY 12/23/18 Benztropine Mesylate [Benztropine Mesylate 0.5 mg Tablet] 0.5 mg PO DAILY 12/23/18 Carbidopa/Levodopa [Sinemet 25-100 mg Tablet] 1 tab PO TID 12/23/18 Donepezil HCl [Aricept] 10 mg PO DAILY 12/23/18 Liothyronine Sodium [Cytomel] 10 mcg PO Q6AM 12/23/18 [place] Carbonate [Lithobid 300 mg Capsule] 300 mg PO TID 12/23/18 Lorazepam [Ativan 1 mg Tablet] 1 mg PO DAILY 12/23/18 Lurasidone HCl [Latuda] 20 mg PO BID 12/23/18 Metformin HCl [Glucophage XR 500 mg Tablet] 1,000 mg PO BID 12/23/18 Pravastatin Sodium [Pravachol] 40 mg PO QHS 12/23/18 Primidone 125 mg PO TID 12/23/18 Quetiapine Fumarate [Seroquel] 800 mg PO DAILY 12/23/18 Selegiline [Emsam] 1 patch TD DAILY 12/23/18 Zolpidem Tartrate [Ambien] 10 mg PO QHS 12/23/18 Allergies/Adverse Reactions: No Known Allergies Allergy (Verified 12/22/18 17:30) Review of Systems ROS unobtainable: Due to mental status Physical Exam Vital Signs: Temp Pulse Resp BP Pulse Ox 97.5 F 74 19 158/71 H 96 12/25/18 16:14 12/25/18 16:14 12/25/18 16:14 12/25/18 16:14 12/25/18 16:14 Intake & Output 12/24/18 12/25/18 12/26/18 06:59 06:59 06:59 Intake Total 1999 1000 1188 Output Total 2350 1950 1350 Balance -350 -950 -162 Weight 61.4 kg 62.2 kg Exam: General appearance: No acute distress, nonverbal with constant movements of upper and lower extremities Head exam: PRESENT: atraumatic, normocephalic Eye exam: PRESENT: Conjunctiva [place], EOMI, PERRLA. ABSENT: conjunctival injection, scleral icterus Mouth exam: PRESENT: moist, neck supple, tongue midline Neck exam: PRESENT: full ROM. ABSENT: carotid bruit, JVD, lymphadenopathy, thyromegaly Respiratory exam: PRESENT: clear to auscultation bilaterally. ABSENT: rales, rhonchi, stridor, wheezes Cardiovascular exam: PRESENT: RRR, +S1, +S2. ABSENT: systolic murmur Pulses: PRESENT: normal radial pulses, normal dorsalis pedis pulses GI/Abdominal exam: PRESENT: normal bowel sounds, soft. ABSENT: guarding, mass, tenderness Rectal exam: Deferred Extremities exam: PRESENT: full ROM. ABSENT: calf tenderness, pedal edema Musculoskeletal: PRESENT: full ROM. ABSENT: deformity Neurological exam: PRESENT: alert, Awake, nonverbal Psychiatric exam: Patient currently has altered mentation Skin exam: PRESENT: intact, dry, warm. ABSENT: rash Results Laboratory Results: 12/25/18 04:36 12/25/18 17:11 12/25/18 12/25/18 12/25/18 04:36 04:36 16:58 WBC 10.0 RBC 4.44 Hgb 13.5 Hct 40.0 MCV 90 MCH 30.5 MCHC 33.9 RDW 13.1 Plt Count 192 Seg Neutrophils % 74.4 Lymphocytes % 12.0 L Monocytes % 12.4 Eosinophils % 1.0 Basophils % 0.2 Absolute Neutrophils 7.4 Absolute Lymphocytes 1.2 Absolute Monocytes 1.2 Absolute Eosinophils 0.1 Absolute Basophils 0.0 Sodium 159.7 H Potassium 3.6 Chloride 136 H Carbon Dioxide 21 L Anion Gap 3 L BUN 14 Creatinine 0.75 Est GFR ( Amer) > 60 Est GFR (Non-Af Amer) > 60 Glucose 176 H Calcium 10.2 Urine Color [place] Urine Appearance CLEAR Urine pH 6.0 Ur Specific [place] 1.008 Urine Protein NEGATIVE Urine Glucose (UA) NEGATIVE Urine Ketones NEGATIVE Urine Blood MODERATE H Urine Nitrite NEGATIVE Ur Leukocyte Esterase SMALL H Urine WBC (Auto) 6 Urine RBC (Auto) 23 Urine Osmolality 12/25/18 12/25/18 17:11 19:01 WBC RBC Hgb Hct MCV MCH MCHC RDW Plt Count Seg Neutrophils % Lymphocytes % Monocytes % Eosinophils % Basophils % Absolute Neutrophils Absolute Lymphocytes Absolute Monocytes Absolute Eosinophils Absolute Basophils Sodium 157.7 H Potassium 3.6 Chloride 137 H Carbon Dioxide 18 L Anion Gap 3 L BUN 11 Creatinine 0.76 Est GFR ( Amer) > 60 Est GFR (Non-Af Amer) > 60 Glucose 177 H Calcium 10.3 H Urine Color Urine Appearance Urine pH Ur Specific [place] Urine Protein Urine Glucose (UA) Urine Ketones Urine Blood Urine Nitrite Ur Leukocyte Esterase Urine WBC (Auto) Urine RBC (Auto) Urine Osmolality 309 12/23/18 05:05 Creatine Kinase 729 H Impressions: Guidance Fluoroscopy 12/22/18 00:00 IMPRESSION: Lumbar puncture under fluoroscopy. No immediate complication. Chest X-Ray 12/22/18 16:44 IMPRESSION: NO ACUTE RADIOGRAPHIC FINDING IN THE CHEST. Head CT 12/22/18 18:42 IMPRESSION: No acute intracranial event. EVIDENCE OF ACUTE STROKE: NO. Lumbar Puncture 12/22/18 21:13 IMPRESSION: Lumbar puncture under fluoroscopy. No immediate complication. Assessment & Plan - Diagnosis (1) Hypernatremia Is this a current diagnosis for this admission?: Yes Plan: This is most likely secondary to a combination of initial dehydration with saline infusion for the first 48 hours. 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 I think this is reversible. Since the patient's IV fluids were switched to hypotonic IV solution the patient's sodium level seems to have gone down a little bit. I will increase the current IV fluids and check her sodium levels serially. If it continues to not show significant improvement I will give the patient DDAVP. We need to hold the lithium at this point. I talked with the patient's , Dr. Lagos who is one of our pediatricians in [facility]. Discussed the above diagnosis and treatment plan. (2) Altered mental status Qualifiers: Altered mental status type: delirium Qualified Code(s): R41.0 - Disorientation, unspecified Is this a current diagnosis for this admission?: Yes Plan: This is most likely secondary to lithium toxicity. Certainly hypernatremia is not going to help this as well. (3) [place] toxicity Qualifiers: Encounter type: initial encounter Injury intent: accidental or unintenti onal Qualified Code(s): T56.891A - Toxic effect of other metals, accidental (unintentional), initial encounter Is this a current diagnosis for this admission?: Yes Plan: Continue to hold lithium at this time. It is highly likely that the patient's lithium level could be toxic for a while and could be manifesting as tremors as well as alteration of mentation. - Notes Notes: Thank you very much for this consultation. I will follow the patient with you. - Time Time Spent: 50 to 70 Minutes
[2018-12-25 22:40] LABS: ANION GAP 6 (5-19); BLOOD UREA NITROGEN 11 mg/dL (7-20); CARBON DIOXIDE 20 mmol/L (22-30); CHLORIDE 132 mmol/L (98-107); GLUCOSE 158 mg/dL (75-110); POTASSIUM 3.6 mmol/L (3.6-5.0); SODIUM 157.5 mmol/L (137-145)
[2018-12-25] MEDS ORDERED: DESMOPRESSIN ACETATE INJ 4 MCG/1 ML AMPULE SUBCUT ONE (23:30)
[2018-12-25] MEDS ORDERED: DESMOPRESSIN ACETATE INJ 4 MCG/1 ML AMPULE ONE (23:38)
[2018-12-26] MEDS: HEPARIN SOD (PORCINE) 5,000 UNIT/ML 1 ML SYRINGE SUBCUT SCH ×3 (06:05→21:33)
[2018-12-26] MEDS: DEXTROSE 5%-WATER 1000 ML 1,000 ML with POTASSIUM CHLORIDE 20 MEQ IV PRN ×6 (06:07→21:33)
[2018-12-26 07:00] LABS: BLOOD UREA NITROGEN 11 mg/dL (7-20); CALCIUM 9.8 mg/dL (8.4-10.2); CARBON DIOXIDE 22 mmol/L (22-30); GLUCOSE 198 mg/dL (75-110); POTASSIUM 3.6 mmol/L (3.6-5.0)
[2018-12-26 07:06] LABS: CHLORIDE 131 mmol/L (98-107); SODIUM 156.4 mmol/L (137-145)
[2018-12-26 07:08] LABS: ANION GAP 3 (5-19)
[2018-12-26] MEDS: DESMOPRESSIN ACETATE INJ 4 MCG/1 ML AMPULE SUBCUT SCH ×2 (10:51→17:30)
--- NOTE | 2018-12-26 11:04 | PROGRESS NOTE E ---
Progress Note NAME: DONALD LAGOS : 1945 AGE: 73Y DATE: ROOM: 323 SUBJECTIVE: The patient is currently lying in bed. The patient is awake. She does respond to her name. Her says this is much better in comparison to yesterday. The patient has been afebrile. Her blood pressures have been somewhat elevated, but in acceptable range at this point. The patient was seen by Nephrology yesterday. The patient is still making good amount of urine and the patient does not voice any other concerns at this time. REVIEW OF SYSTEMS: Unable to be obtained. MEDICATIONS: Have been reviewed. OBJECTIVE: GENERAL: The patient is a 73-year-old female who is awake, alert, but unable to fully assess orientation. She does not appear to be distressed. VITAL SIGNS: Temperature 98.0, pulse 80, respirations 20, blood pressure 161/87, oxygen saturation 94% on room air. SKIN: Warm and dry. No rashes. Not diaphoretic. HEENT: Pupils are reactive. Conjunctivae are pink. No evidence of JVP. CVS: Heart is regular with no rub. CHEST: Clear, symmetrical, unlabored. ABDOMEN: Soft, nontender. EXTREMITIES: Without clubbing, cyanosis, edema. PSYCHIATRIC: Unable to be assessed. DIAGNOSTICS: 1. Hematology obtained 12/25/2018: WBC 10, hemoglobin 13.3, hematocrit 40, platelet count is 192,000. 2. Chemistry obtained 12/26/2018: Sodium is 156, potassium 3.6, chloride is 131, carbon dioxide is 22, BUN 11, creatinine is 0.78, glucose 108, calcium is 9.8. IMPRESSION AND PLAN: 1. [place] toxicity: The patient's lithium level is in an acceptable range at this point. Continue to hydrate and follow. 2. Hyponatremia: Most likely secondary to #1. The patient did get a dose of DDAVP last night around 22:00 hours. Repeat chemistries at 1400. Do appreciate Nephrology with this. 3. Toxic versus metabolic encephalopathy secondary to #1 and 2: The patient slowly appears to be improving. Will try to see if the patient can eat something today and follow. 4. Possible Parkinson's disease: This diagnosis possibly was made during the time the patient was toxic. We do recommend repeating this evaluation at the time of discharge. 5. Diabetes mellitus, type 2: Glucose is in acceptable range. 6. Bipolar disorder: The patient is on a lot of psychotropic medications, which are currently being held at this point. DISPOSITION: The patient is DO NOT RESUSCITATE, DO NOT INTUBATE. Pending patient's cinematology and diagnostic findings will reevaluate in the a.m. TIME SPENT: On this followup including assessment and plan, physical examination, patient education, review of records 25 minutes. DICTATING PHYSICIAN: MORENA ONEAL NP [id number] PHY#: [id number] ID: [id number] JOB#: [id number] ACCT: [id number] cc: >
[2018-12-26 15:25] LABS: BLOOD UREA NITROGEN 10 mg/dL (7-20); CALCIUM 9.6 mg/dL (8.4-10.2); GLUCOSE 235 mg/dL (75-110); POTASSIUM 3.6 mmol/L (3.6-5.0)
[2018-12-26 15:39] LABS: ANION GAP 3 (5-19); CARBON DIOXIDE 22 mmol/L (22-30); CHLORIDE 124 mmol/L (98-107); SODIUM 149.4 mmol/L (137-145)
[2018-12-27 04:59] LABS: HEMATOCRIT 39.2 % (36.0-47.0); HEMOGLOBIN 13.5 g/dL (12.0-15.5); MEAN CORPUSCULAR HEMOGLOBIN 30.4 pg (27.0-33.4); MEAN CORPUSCULAR HGB CONC 34.5 g/dL (32.0-36.0); MEAN CORPUSCULAR VOLUME 88 fl (80-97); PLATELET COUNT 161 10^3/uL (150-450); RED BLOOD COUNT 4.44 10^6/uL (3.72-5.28); RED CELL DISTRIBUTION WIDTH 12.9 % (11.5-14.0); WHITE BLOOD COUNT 7.9 10^3/uL (4.0-10.5)
[2018-12-27 05:21] LABS: ANION GAP 6 (5-19); BLOOD UREA NITROGEN 10 mg/dL (7-20); CALCIUM 9.5 mg/dL (8.4-10.2); CARBON DIOXIDE 21 mmol/L (22-30); CHLORIDE 122 mmol/L (98-107); GLUCOSE 167 mg/dL (75-110); POTASSIUM 3.5 mmol/L (3.6-5.0); SODIUM 148.7 mmol/L (137-145)
[2018-12-27] MEDS: LIOTHYRONINE SODIUM 5 MCG TABLET PO SCH (05:52)
[2018-12-27] MEDS: HEPARIN SOD (PORCINE) 5,000 UNIT/ML 1 ML SYRINGE SUBCUT SCH ×3 (05:59→21:46)
[2018-12-27] MEDS: DEXTROSE 5%-WATER 1000 ML 1,000 ML with POTASSIUM CHLORIDE 20 MEQ IV PRN ×8 (06:47→16:59)
--- NOTE | 2018-12-27 11:49 | PROGRESS NOTE E ---
Progress Note NAME:Shanti Barrera : 01/18/1992 AGE: 26Y DATE: 12/27/2018 ROOM: SUBJECTIVE: This gal is currently lying in bed. The patient is more awake and alert than she was yesterday. The patient does know where she is and has stated she is hungry. The patient is quite responsive to her , which is much improvement in comparison to a couple of days ago. There has been no reported episodes of vomiting or diarrhea and the patient does not voice any other concerns at this time. REVIEW OF SYSTEMS: Still unable to be appreciated. MEDICATIONS: Reviewed. OBJECTIVE: GENERAL: Patient is a 73-year-old female, who is awake, alert. Unable to assess orientation. She does not appear to be in distress. VITAL SIGNS: Temperature is 97.9, pulse 82, respirations 28, blood pressure is 168/99, oxygen saturation 99% on room air. SKIN: Warm and dry. No rash. Not diaphoretic. HEENT: Pupils equal, round, reactive to light and accommodation. Conjunctivae pink. No evidence of JVP. CVS: Heart is regular. No rub. CHEST: Clear, symmetrical, unlabored. ABDOMEN: Soft, nontender, nondistended. EXTREMITIES: No clubbing, cyanosis or edema. PSYCHIATRIC: Unable to fully assess. DIAGNOSTICS: Lab values are as follows: Hematology obtained on 12/27/2018: WBCs are 7.9, hemoglobin 6.7, hematocrit is 37.9, platelet count is 161,000. Chemistry obtained on 12/27/2018: Sodium is 148, potassium is 3.5, chloride is 122, carbon dioxide 21, BUN 10, creatinine is 0.56, glucose 167, calcium is 9.7, magnesium is 1.9. IMPRESSION AND PLAN: 1. LITHIUM TOXICITY. The patient's lithium level is now in acceptable range. Continue to hydrate and follow. 2. HYPERNATREMIA, SECONDARY TO #1. The patient did receive a couple of doses of DDAVP. Sodium continues to trend down. Do appreciate Nephrology's help with this. 3. TOXIC VERSUS METABOLIC ENCEPHALOPATHY, SECONDARY TO #1 and #2. The patient appears to be improving. Will see if we can get the patient to eat something today, and follow. 4. DIABETES MELLITUS TYPE 2. Glucose is in acceptable range. 5. BIPOLAR DISORDER. The patient is on a lot of psychotropic medications. All are currently being held at this point, waiting for the patient to wake up. 6. POSSIBLE [place] DISEASE. Spoke with the regarding this. Do recommend reevaluation after discharge, once the patient is acutely more stable. DISPOSITION: Patient is a DO NOT RESUSCITATE, DO NOT INTUBATE. Pending patient's symptomatology and diagnostic findings, will reevaluate in the a.m. Time spent on this followup, including assessment, plan, physical examination, patient education and review of records, is 25 minutes. DICTATING PHYSICIAN: MORENA ONEAL NP [id number] PHY#: [id number] ID: [id number] JOB#: [id number] ACCT: [id number] cc: > MTDD
[2018-12-28] MEDS: DEXTROSE 5%-WATER 1000 ML 1,000 ML with POTASSIUM CHLORIDE 20 MEQ IV PRN ×4 (01:06→19:11)
[2018-12-28] MEDS: HEPARIN SOD (PORCINE) 5,000 UNIT/ML 1 ML SYRINGE SUBCUT SCH ×3 (05:47→21:02)
[2018-12-28] MEDS: LIOTHYRONINE SODIUM 5 MCG TABLET PO SCH (05:48)
[2018-12-28 07:39] LABS: ALANINE AMINOTRANSFERASE 108 U/L (9-52); ALKALINE PHOSPHATASE 109 U/L (38-126); ASPARTATE AMINO TRANSFERASE 55 U/L (14-36); BILIRUBIN,DIRECT 0.2 mg/dL (0.0-0.4); BILIRUBIN,TOTAL 0.3 mg/dL (0.2-1.3); BLOOD UREA NITROGEN 10 mg/dL (7-20); CALCIUM 9.9 mg/dL (8.4-10.2); GLUCOSE 166 mg/dL (75-110); POTASSIUM 3.5 mmol/L (3.6-5.0); TOTAL PROTEIN 5.4 g/dL (6.3-8.2)
[2018-12-28 07:44] LABS: CARBON DIOXIDE 21 mmol/L (22-30); CHLORIDE 123 mmol/L (98-107); SODIUM 148.2 mmol/L (137-145)
[2018-12-28 07:48] LABS: ANION GAP 4 (5-19)
[2018-12-28] MEDS ORDERED: (PENDING PHARMACY ID) (Benztropine Mesylate [Benztropine Mesylate 0.5 Mg Tablet] 0.5 MG) PO SCH (10:00)
[2018-12-28] MEDS ORDERED: (PENDING PHARMACY ID) (Donepezil Hcl [Aricept] 10 MG) PO SCH (10:00)
[2018-12-28] MEDS: DONEPEZIL HCL 5 MG TABLET PO SCH (10:20)
[2018-12-28] MEDS: BENZTROPINE MESYLATE 1 MG TABLET PO SCH (10:20)
--- NOTE | 2018-12-28 10:28 | PROGRESS NOTE E ---
Progress Note NAME: DONALD LAGOS : 1945 AGE: 73Y DATE: 12/28/2018 ROOM: 323 SUBJECTIVE: The patient was sitting up in bed. She is more awake and alert than she has been. She is ever increasing alertness everyday. The patient has had no reported episodes of vomiting nor diarrhea. The patient has been evaluated by speech therapy and dietary recommendations have been made. The patient also has been seen by PT. Patient's is interested in considering rehab. The patient has had no reported episodes that have required restraints overnight. The patient appears to be improving. No other concerns are voiced at this time. BRIEF HISTORY: The patient is a 73-year-old female with a past medical history of bipolar disorder. The patient presented to the emergency department due to altered mental status. The patient was found to have lithium toxicity and was admitted hydrated. The patient had reevaluation and hypernatremia which has been seen by Nephrology. The patient has received interval doses of DDAVP. Currently her sodium is 148. The patient's mental status has improved everyday. Today will be the first day that she is taking food, although they will be mechanical. We will slowly resume the patient's home psychotropic medications and start with those medicines today. I do not want to throw all of them at her at one time, given the patient is still not at her baseline. The patient's is present at the bedside and active in the patient's care. 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 REVIEW OF SYSTEMS: Full review of systems cannot be appreciated given the patient's mental status. MEDICATIONS: Medications have been reviewed. OBJECTIVE: GENERAL: The patient is a 73-year-old female who is awake, alert, she does know where she is but is unable to fully assess orientation. She does not appear to be distressed. VITAL SIGNS: Temperature 97.6, pulse 61, respirations 17, blood pressure 167/66, oxygen saturation 100% on room air. SKIN: Warm and dry. No rashes. Not diaphoretic. HEENT: Pupils are equal, round, and reactive to light and accommodation. Conjunctivae are pink. No evidence of JVP. CVS: Heart is regular; no murmur no rub. CHEST: Clear, symmetrical, unlabored. ABDOMEN: Soft, nontender. EXTREMITIES: No clubbing, cyanosis, edema. PSYCHIATRIC: Patient does have a flat affect. DIAGNOSTICS: Lab values are as follows: Hematology obtained 12/27/2018: WBC 7.9, hemoglobin 13.5, hematocrit 39.2, platelet count is 161,000. Chemistry obtained 12/28/2018: Sodium is 148, potassium 3.5, chloride is 123, carbon dioxide is 21, BUN 10, creatinine is 0.58, glucose 166, calcium is 9.9, magnesium is 2.0, bilirubin 0.3, AST 55, ALT 28, elisha-phos 109, total protein 4.4, albumin 3.0. IMPRESSION AND PLAN: 1. LITHIUM TOXICITY: The lithium level is in acceptable range. I do appreciate Nephrology's help with this. 2. HYPERNATREMIA: Most likely secondary to #1. The patient has gotten DDAVP. I do appreciate Nephrology's help with this. 3. TOXIC VERSUS METABOLIC ENCEPHALOPATHY SECONDARY TO #1 AND 2: The patient overall appears to be improving. Will try to feed her today. 4. POSSIBLE PARKINSON'S DISEASE: This diagnosis was made just prior to presentation of lithium toxicity, therefore, this may have skewed her evaluation. Do recommend repeating the evaluation at the time discharge. 5. DIABETES MELLITUS, TYPE-2: Glucose is in acceptable range. 6. BIPOLAR DISORDER: The patient does take a lot of psychotropic medications, we will slowly start reinstituting these. DISPOSITION: The patient is DO NOT RESUSCITATE/DO NOT INTUBATE. Pending patient's symptomatology and diagnostic findings will reevaluate in the a.m. The patient can be downgraded to a medical bed. The patient will require less than 30 days of rehab. TIME SPENT: On this followup including assessment and plan, physical examination, patient education, and review of records is 25 minutes. DICTATING PHYSICIAN: MORENA ONEAL NP [id number] PHY#: [id number] ID: [id number] JOB#: [id number] ACCT: [id number] cc: > [facility]
[2018-12-29] MEDS: HEPARIN SOD (PORCINE) 5,000 UNIT/ML 1 ML SYRINGE SUBCUT SCH ×3 (05:26→21:28)
[2018-12-29] MEDS: LIOTHYRONINE SODIUM 5 MCG TABLET PO SCH (05:26)
[2018-12-29] MEDS: DEXTROSE 5%-WATER 1000 ML 1,000 ML with POTASSIUM CHLORIDE 20 MEQ IV PRN ×4 (05:31→15:54)
[2018-12-29 05:48] LABS: ABSOLUTE EOSINOPHILS # (AUTO) 0.2 10^3/uL (0.0-0.6); ABSOLUTE LYMPHOCYTES (AUTO) 1.2 10^3/uL (0.5-4.7); ABSOLUTE MONOCYTES (AUTO) 0.8 10^3/uL (0.1-1.4); ABSOLUTE NEUT (AUTO) 3.8 10^3/uL (1.7-8.2); BASOPHILS % (AUTO) 0.5 % (0-2); EOSINOPHILS % (AUTO) 4.1 % (0-6); HEMATOCRIT 39.6 % (36.0-47.0); HEMOGLOBIN 13.6 g/dL (12.0-15.5); LYMPHOCYTES % (AUTO) 19.6 % (13-45); MEAN CORPUSCULAR HGB CONC 34.2 g/dL (32.0-36.0); MEAN CORPUSCULAR VOLUME 88 fl (80-97); MONOCYTES % (AUTO) 12.8 % (3-13); PLATELET COUNT 169 10^3/uL (150-450); RED BLOOD COUNT 4.52 10^6/uL (3.72-5.28); RED CELL DISTRIBUTION WIDTH 12.9 % (11.5-14.0); TOTAL CELLS COUNTED % (AUTO) 100 %
[2018-12-29 06:14] LABS: ALANINE AMINOTRANSFERASE 128 U/L (9-52); ALKALINE PHOSPHATASE 106 U/L (38-126); ANION GAP 5 (5-19); ASPARTATE AMINO TRANSFERASE 69 U/L (14-36); BILIRUBIN,DIRECT 0.2 mg/dL (0.0-0.4); BILIRUBIN,TOTAL 0.2 mg/dL (0.2-1.3); BLOOD UREA NITROGEN 8 mg/dL (7-20); CALCIUM 9.4 mg/dL (8.4-10.2); CARBON DIOXIDE 23 mmol/L (22-30); CHLORIDE 115 mmol/L (98-107); GLUCOSE 204 mg/dL (75-110); POTASSIUM 3.7 mmol/L (3.6-5.0); TOTAL PROTEIN 5.4 g/dL (6.3-8.2)
[2018-12-29] MEDS: BENZTROPINE MESYLATE 1 MG TABLET PO SCH (09:20)
[2018-12-29] MEDS: DONEPEZIL HCL 5 MG TABLET PO SCH (09:20)
[2018-12-29] MEDS ORDERED: (PENDING PHARMACY ID) (Quetiapine Fumarate [Seroquel] 800 MG) PO SCH (10:00)
[2018-12-29] MEDS ORDERED: (PENDING PHARMACY ID) (Aripiprazole [Abilify 15 Mg Tablet] 15 MG) PO SCH (10:00)
[2018-12-29] MEDS ORDERED: SELEGILINE TD SCH (10:00)
[2018-12-29] MEDS ORDERED: (PENDING PHARMACY ID) (Lurasidone Hcl [Latuda] 20 MG) PO SCH (10:00)
[2018-12-29] MEDS: LURASIDONE HCL 40 MG TABLET PO SCH ×2 (10:27→17:15)
[2018-12-29] MEDS: ARIPIPRAZOLE 5 MG TABLET PO SCH (10:29)
--- NOTE | 2018-12-29 15:24 | PDOC PROGRESS REPORT ---
Subjective Progress Note for:: 12/29/18 Subjective:: This is a very pleasant but unfortunate 73 years old female patient with past medical history of type 2 diabetes mellitus, bipolar disorder, schizophrenia, hypothyroidism brought with chief complaint of altered mental status. When patient seen by on-call hospitalist patient was nonverbal with fever, leukocytosis and toxic lithium level and questionable UTI. Lumbar puncture was done and meningitis ruled out. Her initial blood work revealed hyponatremia with sodium of 156.4. Patient also recently diagnosed with Parkinson's disease due to her tremor. This morning I seen patient resting in bed. She is awake alert and she has a flat affect. 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 I resumed her antipsychotic medication exc ept the lithium. Reason For Visit: AMS SEPSIS UTI MENINGITIS Physical Exam Vital Signs: Temp Pulse Resp BP Pulse Ox 97.9 F 72 16 130/69 H 95 12/29/18 12:10 12/29/18 12:10 12/29/18 12:10 12/29/18 12:10 12/29/18 12:10 Intake & Output 12/28/18 12/29/18 12/30/18 06:59 06:59 06:59 Intake Total 1245 2709 218 Output Total 1775 2000 1000 Balance -530 709 -782 Weight 66.2 kg 66.9 kg General appearance: PRESENT: no acute distress Eye exam: PRESENT: conjunctiva pink Mouth exam: PRESENT: moist Respiratory exam: PRESENT: clear to auscultation concepcion. ABSENT: rales, rhonchi, wheezes Cardiovascular exam: PRESENT: RRR. ABSENT: diastolic murmur, rubs, systolic murmur GI/Abdominal exam: PRESENT: normal bowel sounds, soft. ABSENT: distended, guarding, mass, organolmegaly, rebound, tenderness Neurological exam: PRESENT: alert, awake Psychiatric exam: PRESENT: flat affect Results Laboratory Results: 12/29/18 05:24 12/29/18 05:24 12/29/18 12/29/18 05:24 05:24 WBC 6.0 RBC 4.52 Hgb 13.6 Hct 39.6 MCV 88 MCH 30.0 MCHC 34.2 RDW 12.9 Plt Count 169 Seg Neutrophils % 63.0 Lymphocytes % 19.6 Monocytes % 12.8 Eosinophils % 4.1 Basophils % 0.5 Absolute Neutrophils 3.8 Absolute Lymphocytes 1.2 Absolute Monocytes 0.8 Absolute Eosinophils 0.2 Absolute Basophils 0.0 Sodium 143.0 Potassium 3.7 Chloride 115 H Carbon Dioxide 23 Anion Gap 5 BUN 8 Creatinine 0.55 Est GFR ( Amer) > 60 Est GFR (Non-Af Amer) > 60 Glucose 204 H Calcium 9.4 Magnesium 1.9 Total Bilirubin 0.2 AST 69 H ALT 128 H Alkaline Phosphatase 106 Total Protein 5.4 L Albumin 3.0 L 12/23/18 05:05 Creatine Kinase 729 H Impressions: Guidance Fluoroscopy 12/22/18 00:00 IMPRESSION: Lumbar puncture under fluoroscopy. No immediate complication. Chest X-Ray 12/22/18 16:44 IMPRESSION: NO ACUTE RADIOGRAPHIC FINDING IN THE CHEST. Head CT 12/22/18 18:42 IMPRESSION: No acute intracranial event. EVIDENCE OF ACUTE STROKE: NO. Lumbar Puncture 12/22/18 21:13 IMPRESSION: Lumbar puncture under fluoroscopy. No immediate complication. Assessment and Plan - Diagnosis (1) Acute encephalopathy Is this a current diagnosis for this admission?: Yes Plan: Metabolic compounded by lithium toxicity. Patient seems at her baseline. (2) [place] toxicity Is this a current diagnosis for this admission?: Yes Plan: [place] is on hold. I will determine her lithium level tomorrow. Her told me that he will discuss about the lithium with her primary psychiatrist. (3) Schizophrenia and bipolar disorder Is this a current diagnosis for this admission?: Yes Plan: I will resume her antipsychotic medication except the lithium. (4) Hypothyroidism Qualifiers: Hypothyroidism type: acquired Qualified Code(s): E03.9 - Hypothyroidism, unspecified Is this a current diagnosis for this admission?: Yes Plan: Continue Cytomel (5) Hypernatremia Is this a current diagnosis for this admission?: Yes Plan: Corrected. (6) UTI (urinary tract infection) Is this a current diagnosis for this admission?: Yes Plan: Treated
[2018-12-29] MEDS ORDERED: QUETIAPINE FUMARATE 100 MG TABLET PO SCH (22:00)
[2018-12-29] MEDS ORDERED: NORMAL SALINE 1000 ML 1,000 ML IV ONE (23:50)
[2018-12-30 00:09] LABS: ARTERIAL BLOOD BASE EXCESS -1.4 mmol/L; ARTERIAL BLOOD HCO3 22.8 mmol/L (20-24); ARTERIAL BLOOD O2 SATURATION 95.1 % (94-98); ARTERIAL BLOOD PCO2 36.4 mmHg (35-45); ARTERIAL BLOOD PH 7.41 (7.35-7.45); ARTERIAL BLOOD PO2 73.8 mmHg (80-100); ARTERIAL BLOOD TOTAL CO2 23.9 mmol/L (21-25)
[2018-12-30 00:10] LABS: ARTERIAL BLOOD FIO2 ROOM AIR
[2018-12-30] MEDS: DEXTROSE 5%-WATER 1000 ML 1,000 ML with POTASSIUM CHLORIDE 20 MEQ IV PRN ×4 (03:54→18:18)
[2018-12-30] MEDS: HEPARIN SOD (PORCINE) 5,000 UNIT/ML 1 ML SYRINGE SUBCUT SCH ×2 (05:14→16:29)
[2018-12-30] MEDS: LIOTHYRONINE SODIUM 5 MCG TABLET PO SCH (05:23)
[2018-12-30] MEDS ORDERED: DEXTROSE 40% GEL 15 GM TUBE X 2 PO PRN (09:30)
[2018-12-30] MEDS ORDERED: DEXTROSE 50%-WATER SYRINGE 25 GM/50 ML DOSE IV PRN (09:30)
[2018-12-30] MEDS ORDERED: DEXTROSE 40% GEL 15 GM TUBE PO PRN (09:30)
[2018-12-30] MEDS ORDERED: GLUCAGON,HUMAN RECOMB 1 MG INJ IM PRN (09:30)
[2018-12-30] MEDS ORDERED: DEXTROSE 50%-WATER SYRINGE 12.5 GM/25 ML DOSE IV PRN (09:30)
[2018-12-30] MEDS: BENZTROPINE MESYLATE 1 MG TABLET PO SCH (12:36)
[2018-12-30] MEDS: ARIPIPRAZOLE 5 MG TABLET PO SCH (12:36)
[2018-12-30] MEDS: DONEPEZIL HCL 5 MG TABLET PO SCH (12:37)
--- NOTE | 2018-12-30 13:45 | RADIOLOGY REPORT (SQ) ---
EXAM DESCRIPTION: MRI HEAD WITHOUT COMPLETED DATE/TIME: 12/30/2018 1:31 pm REASON FOR STUDY: Altered mental status COMPARISON: CT brain, 12/22/2018, MR brain, 07/30/2010 TECHNIQUE: Multiplanar imaging includes non-contrasted T1, T2, FLAIR, and diffusion with ADC map seq uences. Images stored on PACS. LIMITATIONS: None. FINDINGS: ANATOMY: No anomalies. Normal vascular flow voids. Pituitary fossa normal. CSF SPACES: Normal in size and contour. No hemorrhage. CEREBRUM: Sulci and gyri normal in size and contour. Minimal periventricular T2/FLAIR hyperintense f oci. No evidence of hemorrhage, mass, or extraaxial fluid collection. POSTERIOR FOSSA: No signal alteration. No hemorrhage. No edema, masses or mass effect. Internal gaurav tory canals, cerebello-pontine angles, mastoids normal. DIFFUSION IMAGING: Negative for acute or sub-acute infarction. ORBITS: No masses. Globes normal. PARANASAL SINUSES: No fluid levels. Mucosa normal. OTHER: No other significant finding. IMPRESSION: No acute noncontrast MR abnormality of the brain to explain AMS. No evidence of acute d iffusion restricting infarction. EVIDENCE OF ACUTE STROKE: NO. TECHNICAL DOCUMENTATION: JOB ID: [id number] [employer]- All Rights Reserved Reading location - IP/workstation name: [email or web address]
[2018-12-30] MEDS: INSULIN LISPRO 100 UNIT/ML 3 ML VIAL SUBCUT SCH ×2 (13:46→18:19)
--- NOTE | 2018-12-30 14:15 | PDOC TRANSFER SUMMARY ---
General - Admit/Disc Date/PCP Admission Date/Primary Care Provider: 12/22/18 21:23 GARTH MITCHELL MD Discharge Date: 12/30/18 - Discharge Diagnosis (1) Acute encephalopathy Is this a current diagnosis for this admission?: Yes (2) [place] toxicity Is this a current diagnosis for this admission?: Yes (3) Schizophrenia and bipolar disorder Is this a current diagnosis for this admission?: Yes (4) Hypothyroidism Is this a current diagnosis for this admission?: Yes (5) Hypernatremia Is this a current diagnosis for this admission?: Yes (6) UTI (urinary tract infection) Is this a current diagnosis for this admission?: Yes - Additional Information Resuscitation Status: Full Code Home Medications: Aripiprazole [Abilify 15 mg Tablet] 15 mg PO DAILY 12/23/18 Benztropine Mesylate [Benztropine Mesylate 0.5 mg Tablet] 0.5 mg PO DAILY 12/23 Carbidopa/Levodopa [Sinemet 25-100 mg Tablet] 1 tab PO TID 12/23/18 Donepezil HCl [Aricept] 10 mg PO DAILY 12/23/18 Liothyronine Sodium [Cytomel] 10 mcg PO Q6AM 12/23/18 [place] Carbonate [Lithobid 300 mg Capsule] 300 mg PO TID 12/23/18 Lorazepam [Ativan 1 mg Tablet] 1 mg PO DAILY 12/23/18 Lurasidone HCl [Latuda] 20 mg PO BID 12/23/18 Metformin HCl [Glucophage XR 500 mg Tablet] 1,000 mg PO BID 12/23/18 Pravastatin Sodium [Pravachol] 40 mg PO QHS 12/23/18 Primidone 125 mg PO TID 12/23/18 Quetiapine Fumarate [Seroquel] 800 mg PO DAILY 12/23/18 Selegiline [Emsam] 1 patch TD DAILY 12/23/18 Zolpidem Tartrate [Ambien] 10 mg PO QHS 12/23/18 History of Present Illness Admission Date/PCP: 12/22/18 21:23 GARTH MITCHELL MD History of Present Illness: DONALD LAGOS is a 73 year old female who presents with altered mental status and subsequently the history is obtained by the medical record. Past medical history includes Parkinson's disease, bipolar disorder, schizophrenia and chronic bedbound state presenting with change in her baseline mental status. She is nonverbal with fever, leukocytosis, toxic lithium level and questionable UTI. She receives empiric antibiotics for meningitis, LP performed with unremarkable CSF fluid. Hospital Course Hospital Course: This is a very pleasant but unfortunate 73 years old female patient with past medical history of type 2 diabetes mellitus, bipolar disorder, schizophrenia, hypothyroidism brought with chief complaint of altered mental status. When patient seen by on-call hospitalist patient was nonverbal with fever, leukocytosis and toxic lithium level and questionable UTI. Lumbar puncture was done and meningitis ruled out. Her initial blood work revealed hyponatremia with sodium of 156.4. Patient also recently diagnosed with Parkinson's disease due to her tremor. This morning I seen patient resting in bed. She is awake alert and she has a flat affect. Now her lithium level has been within normal range. This morning MRI of the brain is done and the report is no acute intracranial process and no acute stroke. Since patient is debilitated and conscious she will benefit from less than 30 days placement to longterm facility. We will continue all home medication except Latuda and lithium. Physical Exam Vital Signs: Temp Pulse Resp BP Pulse Ox 97.9 F 92 22 H 140/67 H 98 12/30/18 12:17 12/30/18 12:17 12/30/18 12:17 12/30/18 12:17 12/30/18 12:17 Intake & Output 12/29/18 12/30/18 12/31/18 06:59 06:59 06:59 Intake Total 2709 3680 Output Total 2000 3750 Balance 709 -70 Weight 66.9 kg 65.5 kg General appearance: PRESENT: no acute distress Head exam: PRESENT: atraumatic Eye exam: PRESENT: conjunctiva pink Mouth exam: PRESENT: moist Neck exam: ABSENT: carotid bruit, JVD, lymphadenopathy, thyromegaly Respiratory exam: PRESENT: clear to auscultation concepcion. ABSENT: rales, rhonchi, wheezes Cardiovascular exam: PRESENT: RRR. ABSENT: diastolic murmur, rubs, systolic mu rmur GI/Abdominal exam: PRESENT: normal bowel sounds, soft. ABSENT: distended, guarding, mass, organolmegaly, rebound, tenderness Neurological exam: PRESENT: alert, awake Psychiatric exam: PRESENT: depressed, flat affect Results Laboratory Results: 12/29/18 05:24 12/29/18 05:24 12/29/18 23:39 Carbonic Acid 1.10 HCO3/H2CO3 Ratio 20:1 ABG pH 7.41 ABG pCO2 36.4 ABG pO2 73.8 L ABG HCO3 22.8 ABG O2 Saturation 95.1 ABG Base Excess -1.4 FiO2 ROOM AIR 12/23/18 05:05 Creatine Kinase 729 H Impressions: Guidance Fluoroscopy 12/22/18 00:00 IMPRESSION: Lumbar puncture under fluoroscopy. No immediate complication. Chest X-Ray 12/22/18 16:44 IMPRESSION: NO ACUTE RADIOGRAPHIC FINDING IN THE CHEST. Head CT 12/22/18 18:42 IMPRESSION: No acute intracranial event. EVIDENCE OF ACUTE STROKE: NO. Lumbar Puncture 12/22/18 21:13 IMPRESSION: Lumbar puncture under fluoroscopy. No immediate complication. Head MRI 12/30/18 00:00 IMPRESSION: No acute noncontrast MR abnormality of the brain to explain AMS. No evidence of acute diffusion restricting infarction. EVIDENCE OF ACUTE STROKE: NO. Transfer Plan - Time Spent with Patient Time spent with patient: Greater than 30 Minutes Qualifiers - * PATIENT BEING DISCHARGED WITH ANY OF THE FOLLOWING DIAGNOSIS: No
[2018-12-30] MEDS ORDERED: SELEGILINE TD SCH (15:00)
[2018-12-30] MEDS ORDERED: CEFTRIAXONE SODIUM 1,000 MG in NORMAL SALINE 50 ML IV ONE (17:30)
[2018-12-30 18:20] VITALS: BP 143/64
== END 2018-12-30 19:40 | DRG 92 ==
LOC: ER 16:42 → EH 21:23 → 3W 23:27
PROVIDERS: ADMIT Internal Medicine; ATTEND Internal Medicine
PROC: 009U3ZX Drainage of Spinal Canal, Percutaneous Approach, Diagnostic (ICD-10-PCS; principal; 2018-12-22)
PROC: B01BZZZ Fluoroscopy of Spinal Cord (ICD-10-PCS; 2018-12-22)
DX: G92 Toxic encephalopathy (principal); E87.0 Hyperosmolality and hypernatremia; T43.595A Adverse effect of other antipsychotics and neuroleptics, initial encounter; G20 Parkinson's disease; F02.80 Dementia in other diseases classified elsewhere, unspecified severity, without behavioral disturbance, psychotic disturbance, mood disturbance, and anxiety; F31.9 Bipolar disorder, unspecified; F20.9 Schizophrenia, unspecified; Z74.01 Bed confinement status; E78.5 Hyperlipidemia, unspecified; Z78.1 Physical restraint status; E11.9 Type 2 diabetes mellitus without complications; Z66 Do not resuscitate; E03.9 Hypothyroidism, unspecified; Z79.899 Other long term (current) drug therapy; Z79.84 Long term (current) use of oral hypoglycemic drugs; Z91.81 History of falling
CPT/HCPCS: 36415; 62270; 70450; 70551; 71045; 77003; 80048; 80053; 80178; 80307; 81001; 82550; 82803; 82945; 82962; 83605; 83735; 83935; 84157; 84300; 84443; 85025; 85027; 85610; 87040; 87070; 87086; 87205; 89050; 93005; 93010; 96365; 99291; 99292; J0696; J1644; J1815; J2597; J3370; J3480; J3490; J7030; J7060

== ENCOUNTER 2019-01-22 15:36 | Emergency (ER) | payer MEDICARE, OTHER ==
[2019-01-22 17:06] LABS: ABSOLUTE BASOPHILS # (AUTO) 0.1 10^3/uL (0.0-0.2); ABSOLUTE EOSINOPHILS # (AUTO) 0.3 10^3/uL (0.0-0.6); ABSOLUTE LYMPHOCYTES (AUTO) 1.1 10^3/uL (0.5-4.7); ABSOLUTE MONOCYTES (AUTO) 0.8 10^3/uL (0.1-1.4); ABSOLUTE NEUT (AUTO) 7.7 10^3/uL (1.7-8.2); BASOPHILS % (AUTO) 0.7 % (0-2); EOSINOPHILS % (AUTO) 2.6 % (0-6); HEMATOCRIT 40.1 % (36.0-47.0); HEMOGLOBIN 13.5 g/dL (12.0-15.5); LYMPHOCYTES % (AUTO) 11.4 % (13-45); MEAN CORPUSCULAR HEMOGLOBIN 29.2 pg (27.0-33.4); MEAN CORPUSCULAR HGB CONC 33.5 g/dL (32.0-36.0); MEAN CORPUSCULAR VOLUME 87 fl (80-97); MONOCYTES % (AUTO) 7.9 % (3-13); PLATELET COUNT 324 10^3/uL (150-450); RED CELL DISTRIBUTION WIDTH 13.5 % (11.5-14.0); SEGMENTED NEUTROPHILS % (AUTO) 77.4 % (42-78); TOTAL CELLS COUNTED % (AUTO) 100 %
[2019-01-22 17:24] LABS: ALANINE AMINOTRANSFERASE 21 U/L (9-52); ALBUMIN 3.1 g/dL (3.5-5.0); ALKALINE PHOSPHATASE 127 U/L (38-126); ANION GAP 6 (5-19); ASPARTATE AMINO TRANSFERASE 25 U/L (14-36); BILIRUBIN,DIRECT 0.2 mg/dL (0.0-0.4); BILIRUBIN,TOTAL 0.2 mg/dL (0.2-1.3); BLOOD UREA NITROGEN 7 mg/dL (7-20); CALCIUM 10.4 mg/dL (8.4-10.2); CARBON DIOXIDE 27 mmol/L (22-30); CHLORIDE 107 mmol/L (98-107); GLUCOSE 161 mg/dL (75-110); POTASSIUM 3.8 mmol/L (3.6-5.0); SODIUM 139.5 mmol/L (137-145); TOTAL PROTEIN 5.6 g/dL (6.3-8.2)
[2019-01-22 17:25] LABS: CREATINE KINASE < 20 U/L (30-135)
[2019-01-22 17:33] LABS: CREATINE KINASE MB 1.01 ng/mL (<4.55)
[2019-01-22 17:34] LABS: TROPONIN I < 0.012 ng/mL
[2019-01-22] MEDS ORDERED: NORMAL SALINE 1000 ML 1,000 ML IV ONE (18:35)
--- NOTE | 2019-01-22 18:39 | ER Document Report ---
ED General - General Chief Complaint: General Weakness Stated Complaint: DEHYDRATION Time Seen by Provider: 01/22/19 18:06 Primary Care Provider: GARTH MITCHELL MD [Primary Care Provider] - Follow up as needed Notes: 73-year-old female with a history of Parkinson's disease brought in by her due to concerns over possible dehydration. He states that she lost approximately 20 pounds while she was at [facility] for rehab for several weeks and that they left recently due to poor food. He states that at home she is also continued to have increasing difficulty swallowing although no choking episodes and decreased interest in food. He is concerned that she may be experiencing dehydration that is causing irreversible damage. also mentions that she has been increasingly sleepy today however he states that as soon as she arrived in the emergency department she was much more alert and said that if we would just let her go home she would be willing to drink more. She recently saw Dr. Andrew her neurologist and he increased her medications including her levodopa and her primidone. Patient denies any pain, denies any vomiting but says she has been spitting up a little bit and has had a few loose stools. TRAVEL OUTSIDE OF THE [place] IN LAST 30 DAYS: No - Related Data Allergies/Adverse Reactions: No Known Allergies Allergy (Verified 12/22/18 17:30) Past Medical History - General Information source: Patient, Relative - - Social History Smoking Status: Never Smoker Chew tobacco use (# tins/day): No Frequency of alcohol use: None Drug Abuse: None Lives with: Spouse/Significant other Family History: Reviewed & Not Pertinent Patient has suicidal ideation: No Patient has homicidal ideation: No - Past Medical History Cardiac Medical History: Reports: Hx Hypercholesterolemia Denies: Hx Heart Attack, Hx Hypertension Pulmonary Medical History: Denies: Hx Asthma, Hx Tuberculosis Neurological Medical History: Denies: Hx Cerebrovascular Accident, Hx Seizures Endocrine Medical History: Reports: Hx Diabetes Mellitus Type 2 Renal/ Medical History: Denies: Hx Peritoneal Dialysis GI Medical History: Denies: Hx Hepatitis, Hx Hiatal Hernia, Hx Ulcer Psychiatric Medical History: Reports: Hx Bipolar Disorder, Hx Schizophrenia Infectious Medical History: Denies: Hx Hepatitis Past Surgical History: Reports: Hx Hysterectomy. Denies: Hx Mastectomy, Hx Open Heart Surgery, Hx Pacemaker - Immunizations Immunizations up to date: Yes Hx Diphtheria, Pertussis, Tetanus Vaccination: Yes Hx Pneumococcal Vaccination: 09/28/12 Review of Systems - Review of Systems Constitutional: See HPI, Weakness, Other - Fatigue EENT: No symptoms reported Gastrointestinal: See HPI, Diarrhea, Vomiting Neurological/Psychological: See HPI -: Yes All other systems reviewed and negative Physical Exam - Vital signs Vitals: Resp 13 01/22/19 15:43 - Notes Notes: GENERAL: Alert, interacts well. No acute distress. Thin but not cachectic HEAD: Normocephalic, atraumatic EYES: Pupils equal, round and reactive to light, extraocular movements intact. ENT: Oral mucosa dry, tongue midline. NECK: Full range of motion, supple, trachea midline. LUNGS: Clear to auscultation bilaterally, no wheezes, rales or rhonchi, no respiratory distress. HEART: Regular rate and rhythm, no murmurs, gallops, rubs. ABDOMEN: Soft, nontender, nondistended, bowel sounds present in all 4 quadrants. EXTREMITIES: Moves all 4 extremities spontaneously, no edema, radial and dorsalis pedis pulses 2/4 bilaterally. No cyanosis. NEUROLOGICAL: Alert and oriented x3, normal speech, no facial droop, fine tremor with any movement. PSYCH: Normal mood, normal affect. SKIN: Warm, Dry, normal turgor, no rashes or lesions noted. Course - Re-evaluation Re-evalutation: 01/22/19 20:23 CBC unremarkable, CMP shows elevated glucose at 161, she is a diabetic and this is nonfasting, calcium slightly elevated at 10.4, albumin low at 3.1 consistent with weight loss, cardiac enzymes negative, urinalysis shows 20 ketones but normal even slightly low specific gravity, no signs of infection, EKG is u nremarkable. Slight ketones in the urine were treated with fluids, no other signs of dehydration. Discussed with and patient to the need for following up with dietary consult, speech and swallow consult and continuing to follow with neurologist as an outpatient. We did discuss that Parkinson's is a progressive disease and they may eventually have to discuss whether or not they would like a feeding tube. I do not feel that that is a conversation we need to be having at this time however 01/22/19 20:23 Patient will be discharged to home. - Vital Signs Vital signs: Temp Pulse Resp BP Pulse Ox 98.3 F 14 137/75 H 94 05/03/19 17:22 01/22/19 16:00 01/22/19 15:46 01/22/19 18:00 - Laboratory Result Diagrams: 01/22/19 16:47 01/22/19 16:47 Laboratory results interpreted by me: 01/22/19 01/22/19 01/22/19 16:47 16:47 19:20 Lymphocytes % 11.4 L Glucose 161 H Calcium 10.4 H Alkaline Phosphatase 127 H Creatine Kinase < 20 L Total Protein 5.6 L Albumin 3.1 L Urine Ketones 20 H - EKG Interpretation by Me Additional EKG results interpreted by me: 01/22/19 20:23 EKG shows sinus rhythm at a rate of 80, baseline artifact causes misinterpretation by the computer to classify his atrial fibrillation and I disagree, I also do not see any PVCs as documented by the EKG, normal axis, interventricular conduction delay, no ST segment elevations or depressions, no T wave inversions per my interpretation. Discharge - Discharge Clinical Impression: Mild dehydration, Parkinsons disease, Decreased appetite, Unintentional weight loss Condition: Stable Disposition: HOME, SELF-CARE Additional Instructions: Please follow-up as an outpatient with your neurologist and please continue with the speech and swallow consult as well as with requesting a dietary consult. Referrals: GARTH MITCHELL MD [Primary Care Provider] - Follow up as needed
--- NOTE | 2019-01-22 18:45 | EKG REPORT ---
SEVERITY:- ABNORMAL ECG - PROBLE SINUS, REC REPEAT EKG DUE TO ARTIFACTS NONSPECIFIC INTRAVENTRICULAR CONDUCTION DELAY : Confirmed by: Juliet Castro 22-Jan-2019 18:45:13
[2019-01-22 19:36] LABS: APPEARANCE,URINE CLEAR; BILIRUBIN,URINE NEGATIVE (NEGATIVE); COLOR,URINE YELLOW; GLUCOSE, URINE NEGATIVE (NEGATIVE); KETONES,URINE 20 mg/dL (NEGATIVE); LEUKOCYTE ESTERASE,URINE NEGATIVE (NEGATIVE); NITRITE,URINE NEGATIVE (NEGATIVE); PROTEIN,URINE NEGATIVE (NEGATIVE); URINE SPECIFIC GRAVITY 1.009; UROBILINOGEN,URINE NEGATIVE mg/dL (<2.0)
[2019-01-22 20:41] VITALS: BP 136/65
== END 2019-01-22 20:41 | disposition home or self-care (01) ==
LOC: ER 15:36
DX: E86.0 Dehydration (principal); G20 Parkinson's disease; R53.1 Weakness; R63.4 Abnormal weight loss; R19.7 Diarrhea, unspecified; R11.10 Vomiting, unspecified; E78.00 Pure hypercholesterolemia, unspecified; E11.9 Type 2 diabetes mellitus without complications; Z90.710 Acquired absence of both cervix and uterus
CPT/HCPCS: 93005; 99284; 96360; 96361; 51701; 36415; 82553; 82550; 85025; 80053; 81001; 84484; 93010; J7030

== ENCOUNTER 2019-01-27 16:41 | Emergency (ER) | payer MEDICARE, OTHER ==
--- NOTE | 2019-01-27 18:31 | ER Document Report ---
ED Medical Screen (RME) - General Chief Complaint: Other Stated Complaint: FAILURE TO THRIVE Time Seen by Provider: 01/27/19 18:09 Primary Care Provider: GARTH MITCHELL MD [Primary Care Provider] - Follow up as needed Mode of Arrival: Medic Information source: Relative - spouse Notes: She presents to the emergency department via EMS for reports of failure to thrive. Patient has Parkinson's. at the bedside reports she has not been eating and drinking. He reports she has lost 20 pounds in the last few days. Last bowel movement was 2 days ago but he does hear her passing gas now. Patient received 500 mL's of fluid via EMS. Patient is nonverbal. But does acknowledge everything that is said to her. No complaints of fever vomiting or diarrhea. I have greeted and performed a rapid initial assessment of this patient. A comprehensive ED assessment and evaluation of the patient, analysis of test results and completion of the medical decision making process will be conducted by additional ED providers. Dictation of this chart was performed using voice recognition software; therefore, there may be some unintended grammatical errors. TRAVEL OUTSIDE OF THE [place] IN LAST 30 DAYS: No - Related Data Allergies/Adverse Reactions: No Known Allergies Allergy (Verified 12/22/18 17:30) Past Medical History - Past Medical History Cardiac Medical History: Reports: Hx Hypercholesterolemia Denies: Hx Heart Attack, Hx Hypertension Pulmonary Medical History: Denies: Hx Asthma, Hx Tuberculosis Neurological Medical History: Denies: Hx Cerebrovascular Accident, Hx Seizures Endocrine Medical History: Reports: Hx Diabetes Mellitus Type 2 Renal/ Medical History: Denies: Hx Peritoneal Dialysis GI Medical History: Denies: Hx Hepatitis, Hx Hiatal Hernia, Hx Ulcer Psychiatric Medical History: Reports: Hx Bipolar Disorder, Hx Schizophrenia Infectious Medical History: Denies: Hx Hepatitis Past Surgical History: Reports: Hx Hysterectomy. Denies: Hx Mastectomy, Hx Open Heart Surgery, Hx Pacemaker - Immunizations Immunizations up to date: Yes Hx Diphtheria, Pertussis, Tetanus Vaccination: Yes History of Influenza Vaccine for 06/2017 - 11/2017 Season: Yes Physical Exam - Vital signs Vitals: Resp 13 01/27/19 16:50 Course - Vital Signs Vital signs: Temp Pulse Resp BP Pulse Ox 15 102/86 H 01/27/19 17:01 01/27/19 17:01 Doctor's Discharge - Discharge Referrals: GARTH MITCHELL MD [Primary Care Provider] - Follow up as needed
[2019-01-27 18:57] LABS: ABSOLUTE BASOPHILS # (AUTO) 0.1 10^3/uL (0.0-0.2); ABSOLUTE EOSINOPHILS # (AUTO) 0.3 10^3/uL (0.0-0.6); ABSOLUTE LYMPHOCYTES (AUTO) 1.6 10^3/uL (0.5-4.7); ABSOLUTE MONOCYTES (AUTO) 0.8 10^3/uL (0.1-1.4); ABSOLUTE NEUT (AUTO) 5.8 10^3/uL (1.7-8.2); BASOPHILS % (AUTO) 0.6 % (0-2); HEMATOCRIT 46.1 % (36.0-47.0); HEMOGLOBIN 15.2 g/dL (12.0-15.5); LYMPHOCYTES % (AUTO) 18.5 % (13-45); MEAN CORPUSCULAR HEMOGLOBIN 29.3 pg (27.0-33.4); MEAN CORPUSCULAR HGB CONC 33.1 g/dL (32.0-36.0); MEAN CORPUSCULAR VOLUME 89 fl (80-97); MONOCYTES % (AUTO) 9.2 % (3-13); PLATELET COUNT 288 10^3/uL (150-450); RED CELL DISTRIBUTION WIDTH 14.3 % (11.5-14.0); SEGMENTED NEUTROPHILS % (AUTO) 68.7 % (42-78); TOTAL CELLS COUNTED % (AUTO) 100 %; WHITE BLOOD COUNT 8.4 10^3/uL (4.0-10.5)
[2019-01-27 19:19] LABS: ALANINE AMINOTRANSFERASE 27 U/L (9-52); ALBUMIN 3.6 g/dL (3.5-5.0); ALKALINE PHOSPHATASE 130 U/L (38-126); ANION GAP 6 (5-19); ASPARTATE AMINO TRANSFERASE 29 U/L (14-36); BILIRUBIN,DIRECT 0.2 mg/dL (0.0-0.4); BILIRUBIN,TOTAL 0.3 mg/dL (0.2-1.3); BLOOD UREA NITROGEN 10 mg/dL (7-20); CALCIUM 10.6 mg/dL (8.4-10.2); CARBON DIOXIDE 30 mmol/L (22-30); CHLORIDE 105 mmol/L (98-107); GLUCOSE 118 mg/dL (75-110); POTASSIUM 4.5 mmol/L (3.6-5.0); SODIUM 141.3 mmol/L (137-145); TOTAL PROTEIN 6.3 g/dL (6.3-8.2)
[2019-01-27 19:43] LABS: APPEARANCE,URINE CLOUDY; BILIRUBIN,URINE NEGATIVE (NEGATIVE); COLOR,URINE YELLOW; GLUCOSE, URINE NEGATIVE (NEGATIVE); KETONES,URINE NEGATIVE (NEGATIVE); LEUKOCYTE ESTERASE,URINE LARGE (NEGATIVE); NITRITE,URINE NEGATIVE (NEGATIVE); PROTEIN,URINE NEGATIVE (NEGATIVE); URINE SPECIFIC GRAVITY 1.008; UROBILINOGEN,URINE NEGATIVE mg/dL (<2.0)
[2019-01-27] MEDS ORDERED: CEFTRIAXONE 1 GM/D5W RTU 1 GM/50 ML RTUPB IV ONE (20:28)
--- NOTE | 2019-01-27 20:55 | ER Document Report ---
ED General - General Chief Complaint: Other Stated Complaint: FAILURE TO THRIVE Time Seen by Provider: 01/27/19 18:09 Primary Care Provider: GARTH MITCHELL MD [Primary Care Provider] - Follow up as needed Mode of Arrival: Medic TRAVEL OUTSIDE OF THE [place] IN LAST 30 DAYS: No - HPI Notes: Patient is a 73-year-old female who was brought to the emergency department by her for the chief complaint of possible dehydration. Patient does live with the who is the primary care provider. Patient does have a history of diabetes and advanced Parkinson's. states that over the past month she has lost about 20 pounds and has a decreased appetite. does report that she has been tolerating liquids such as orange juice, protein shakes, and ensure beverages. Denies nausea vomiting or diarrhea. states that she is currently at her baseline, which includes her speech being mumbled and hard to understand. denies altered level of consciousness. States that home health is supposed to visit tomorrow for assistance as the Parkinson's has progressed. States he was just concerned that she was dehydrated. been denies fever. - Related Data Allergies/Adverse Reactions: No Known Allergies Allergy (Verified 12/22/18 17:30) Past Medical History - General Information source: Relative - spouse - Social History Smoking Status: Unknown if Ever Smoked Cigarette use (# per day): No Chew tobacco use (# tins/day): No Frequency of alcohol use: None Drug Abuse: None Lives with: Spouse/Significant other Family History: Reviewed & Not Pertinent Patient has suicidal ideation: No Patient has homicidal ideation: No - Past Medical History Cardiac Medical History: Reports: Hx Hypercholesterolemia Denies: Hx Heart Attack, Hx Hypertension Pulmonary Medical History: Denies: Hx Asthma, Hx Tuberculosis EENT Medical History: Reports: None Neurological Medical History: Denies: Hx Cerebrovascular Accident, Hx Seizures Endocrine Medical History: Reports: Hx Diabetes Mellitus Type 2 Renal/ Medical History: Reports: None. Denies: Hx Peritoneal Dialysis Malignancy Medical History: Reports: None GI Medical History: Reports: None. Denies: Hx Hepatitis, Hx Hiatal Hernia, Hx Ulcer Musculoskeletal Medical History: Reports None Skin Medical History: Reports None Psychiatric Medical History: Reports: Hx Bipolar Disorder, Hx Schizophrenia Traumatic Medical History: Reports: None Infectious Medical History: Denies: Hx Hepatitis Past Surgical History: Reports: Hx Hysterectomy. Denies: Hx Mastectomy, Hx Open Heart Surgery, Hx Pacemaker - Immunizations Immunizations up to date: Yes Hx Diphtheria, Pertussis, Tetanus Vaccination: Yes Hx Pneumococcal Vaccination: 09/28/12 Review of Systems - Review of Systems Constitutional: See HPI EENT: No symptoms reported Cardiovascular: No symptoms reported Respiratory: No symptoms reported Gastrointestinal: See HPI Genitourinary: Incontinence - States that she wears a depends, this is mostly due to the inability to get to the restroom quick enough. Musculoskeletal: No symptoms reported Skin: No symptoms reported Hematologic/Lymphatic: No symptoms reported Neurological/Psychological: See HPI Physical Exam - Vital signs Vitals: Resp 13 01/27/19 16:50 Interpretation: Normal - Notes Notes: GENERAL: Well-appearing, in no acute distress. HEAD: Atraumatic, normocephalic. EYES: Pupils equal round and reactive to light, extraocular movements intact, sclera anicteric, conjunctiva are normal. ENT: Moist mucous membranes. NECK: Normal range of motion, supple without lymphadenopathy or JVD. LUNGS: Breath sounds clear to auscultation bilaterally and equal. No wheezes rales or rhonchi. HEART: Regular rate and rhythm without murmurs, rubs or gallops. ABDOMEN: Soft, nontender, normoactive bowel sounds. No guarding, no rebound. No masses appreciated. EXTREMITIES: Normal range of motion, no pitting or edema. No clubbing or cya nosis. SKIN: Warm, Dry, normal turgor, no rashes or lesions noted. Course - Re-evaluation Re-evalutation: 01/27/19 Upon initial evaluation, patient is resting on stretcher. Patient is alert, when asked questions, patient attempts to answer but the speech is mumbled. states that this is her baseline due to her Parkinson's. Discussed lab results with which includes a diagnosis of a urinary tract infection. Informed him that a urine culture was added and that IV antibiotics will be given during the emergency room visit patient will be placed on an antibiotic called Keflex for one week. Has been states that patient is able to swallow pills and does not have difficulty. states that although she has a decreased appetite she has been tolerating liquids as well as some protein shakes. Has been states that her gait has not gotten worse although she is weak. states that she uses a walker and needs assistance. states that well care is scheduled to come out to the house tomorrow to establish home health. Patient also has a follow-up appointment with her primary care physician tomorrow afternoon at 4 PM. Informed that is vital she keeps this so she can have a reevaluation of her symptoms and close follow-up. denies nausea vomiting or diarrhea. She has complained of burning with urination to . Has been denies fever. Overall physical assessment was benign. Abdomen is soft. Has been states that he feels comfortable with patient going home as he was concerned that she was dehydrated. Informed that the kidney function and urine did not show dehydration but was positive for urinary tract infection. Encouraged to increase fluid intake. Educated on strict return precautions to include fever, vomiting, diarrhea, or level of consciousness, severe abdominal pain, or any other concerning signs or symptoms. verbalized understanding and in agreement with discharge plan at this time. While in room vital signs are stable patient is not tachycardic, hypotensive or febrile. - Vital Signs Vital signs: Temp Pulse Resp BP Pulse Ox 98.2 F 88 15 125/75 97 01/27/19 21:06 01/27/19 21:06 01/27/19 21:06 01/27/19 21:06 01/27/19 21:06 - Laboratory Result Diagrams: 01/27/19 18:30 01/27/19 18:30 Laboratory results interpreted by me: 01/27/19 01/27/19 01/27/19 18:30 18:30 19:09 RDW 14.3 H Glucose 118 H Calcium 10.6 H Alkaline Phosphatase 130 H Ur Leukocyte Esterase LARGE H Urine Ascorbic Acid 40 H 01/27/19 21:30 She did have a large amount of leuks in her urine. This was a catheterized urine specimen. This is consistent with urinary tract infection. Will add urine culture. Discharge - Discharge Clinical Impression: Parkinson disease Urinary tract infection Qualifiers: Urinary tract infection type: site unspecified Hematuria presence: without hematuria Qualified Code(s): N39.0 - Urinary tract infection, site not specified Condition: Stable Disposition: HOME, SELF-CARE Instructions: Cephalexin ([facility]), Urinary Tract Infection ([facility]) Additional Instructions: Today you were seen in the emergency department for a urinary tract infection. You have received an IV infusion of Rocephin, which is an antibiotic. You are also being prescribed an antibiotic medication that you will start tomorrow, this is a pill. We did obtain blood work which did not show dehydration or kidney failure. Your white blood cell count was normal. During your emergency department visit you did not have a fever. Please keep your follow-up appointment with your primary care physician Dr. Mitchell tomorrow at 4 PM. It is vital that you have strict follow-up. Please call [facility] tomorrow to set up home health. Our social professionals will be in touch with you if there are any questions or barriers to achieving home health assistance. Please return to the emergency department for any worsening of symptoms to include altered level of consciousness, fever, vomiting or diarrhea, or any other concerning signs or symptoms. Continue pushing fluids as well as sure and other nourishment beve rages. Urinary Tract Infection Your evaluation indicates that you have a urinary tract infection. This is due to germs growing in the bladder. This is a common problem. This infection usually responds quickly to antibiotics. Your antibiotic should be taken exactly as prescribed. Drink plenty of fluids -- three to four quarts a day. Occasionally, a bladder anesthetic will be prescribed to help stop the feeling of urgency until the antibiotic has a chance to clear the infection. This may cause your urine to be dark orange. Certain urine infections require a culture. If the doctor obtained a culture, the results will be back in two days. You should call to see if a change in treatment is needed. A repeat urinalysis after you finish treatment is often recommended. The physician will let you know if further testing is required. Call the doctor if you develop fever, chills, flank pain, inability to urinate, or blood in the urine. Prescriptions: Cephalexin Monohydrate [Keflex 500 mg Capsule] 500 mg PO BID 7 Days #14 capsule Referrals: GARTH MITCHELL MD [Primary Care Provider] - Follow up as needed
[2019-01-27 21:07] VITALS: BP 151/75
== END 2019-01-27 21:25 | disposition home or self-care (01) ==
LOC: ER 16:41
DX: N39.0 Urinary tract infection, site not specified (principal); G20 Parkinson's disease; E11.9 Type 2 diabetes mellitus without complications; R63.0 Anorexia; R63.4 Abnormal weight loss; R32 Unspecified urinary incontinence
CPT/HCPCS: 36415; 87086; 85025; 80053; 81001; J0696

== ENCOUNTER 2019-01-29 18:33 | Emergency (ER) | payer MEDICARE, OTHER ==
[2019-01-29 20:18] LABS: ABSOLUTE BASOPHILS # (AUTO) 0.1 10^3/uL (0.0-0.2); ABSOLUTE EOSINOPHILS # (AUTO) 0.3 10^3/uL (0.0-0.6); ABSOLUTE LYMPHOCYTES (AUTO) 1.7 10^3/uL (0.5-4.7); ABSOLUTE MONOCYTES (AUTO) 0.8 10^3/uL (0.1-1.4); BASOPHILS % (AUTO) 0.8 % (0-2); EOSINOPHILS % (AUTO) 4.7 % (0-6); HEMATOCRIT 42.7 % (36.0-47.0); HEMOGLOBIN 14.2 g/dL (12.0-15.5); LYMPHOCYTES % (AUTO) 24.9 % (13-45); MEAN CORPUSCULAR HEMOGLOBIN 29.1 pg (27.0-33.4); MEAN CORPUSCULAR HGB CONC 33.3 g/dL (32.0-36.0); MEAN CORPUSCULAR VOLUME 87 fl (80-97); MONOCYTES % (AUTO) 11.7 % (3-13); PLATELET COUNT 255 10^3/uL (150-450); RED CELL DISTRIBUTION WIDTH 13.9 % (11.5-14.0); SEGMENTED NEUTROPHILS % (AUTO) 57.9 % (42-78); TOTAL CELLS COUNTED % (AUTO) 100 %; WHITE BLOOD COUNT 6.8 10^3/uL (4.0-10.5)
[2019-01-29 20:29] LABS: ALANINE AMINOTRANSFERASE 24 U/L (9-52); ALBUMIN 3.3 g/dL (3.5-5.0); ALKALINE PHOSPHATASE 108 U/L (38-126); ANION GAP 7 (5-19); ASPARTATE AMINO TRANSFERASE 36 U/L (14-36); BILIRUBIN,DIRECT 0.3 mg/dL (0.0-0.4); BILIRUBIN,TOTAL 0.3 mg/dL (0.2-1.3); BLOOD UREA NITROGEN 10 mg/dL (7-20); CALCIUM 10.4 mg/dL (8.4-10.2); CARBON DIOXIDE 28 mmol/L (22-30); CHLORIDE 103 mmol/L (98-107); GLUCOSE 109 mg/dL (75-110); LITHIUM 0.3 mEq/L (0.6-1.2); POTASSIUM 4.5 mmol/L (3.6-5.0); SODIUM 138.4 mmol/L (137-145); TOTAL PROTEIN 5.8 g/dL (6.3-8.2)
[2019-01-29 20:59] LABS: APPEARANCE,URINE CLEAR; BILIRUBIN,URINE NEGATIVE (NEGATIVE); COLOR,URINE YELLOW; GLUCOSE, URINE NEGATIVE (NEGATIVE); KETONES,URINE TRACE mg/dL (NEGATIVE); LEUKOCYTE ESTERASE,URINE NEGATIVE (NEGATIVE); NITRITE,URINE NEGATIVE (NEGATIVE); PROTEIN,URINE NEGATIVE (NEGATIVE); URINE SPECIFIC GRAVITY 1.008; UROBILINOGEN,URINE NEGATIVE mg/dL (<2.0)
--- NOTE | 2019-01-29 21:39 | ER Document Report ---
ED General - General Chief Complaint: Altered Mental Status Stated Complaint: ALTERED MENTAL STATUS Time Seen by Provider: 01/29/19 19:50 Primary Care Provider: GARTH MITCHELL MD [Primary Care Provider] - Follow up as needed TRAVEL OUTSIDE OF THE [place] IN LAST 30 DAYS: No - HPI Notes: Patient is a 73-year-old female with a known history of Parkinson's and dementia who presents to the emergency department for evaluation with her . He is the primary historian. He states that she is refusing to drink for him. He states she was diagnosed with urinary tract infection here the other day, states that she will not take the antibiotics. He is concerned she is dehydrated. She has had no vomiting. He states sometimes she just refuses to drink. Patient to me states currently that she is thirsty, asks if she can have some water. She denies any pain of any sort. She currently sees neurology. It is recently been suggested that she increase her carbidopa levodopa, however she will not swallow extra pills. - Related Data Allergies/Adverse Reactions: No Known Allergies Allergy (Verified 12/22/18 17:30) Past Medical History - General Information source: Patient - Social History Smoking Status: Never Smoker Family History: Reviewed & Not Pertinent Patient has suicidal ideation: No Patient has homicidal ideation: No - Past Medical History Cardiac Medical History: Reports: Hx Hypercholesterolemia Denies: Hx Heart Attack, Hx Hypertension Pulmonary Medical History: Denies: Hx Asthma, Hx Tuberculosis Neurological Medical History: Reports: Other - Parkinson's disease. Denies: Hx Cerebrovascular Accident, Hx Seizures Endocrine Medical History: Reports: Hx Diabetes Mellitus Type 2 Renal/ Medical History: Denies: Hx Peritoneal Dialysis GI Medical History: Denies: Hx Hepatitis, Hx Hiatal Hernia, Hx Ulcer Psychiatric Medical History: Reports: Hx Bipolar Disorder, Hx Schizophrenia Infectious Medical History: Denies: Hx Hepatitis Past Surgical History: Reports: Hx Hysterectomy. Denies: Hx Mastectomy, Hx Open Heart Surgery, Hx Pacemaker - Immunizations Immunizations up to date: Yes Hx Diphtheria, Pertussis, Tetanus Vaccination: Yes Hx Pneumococcal Vaccination: 09/28/12 Review of Systems - Review of Systems Constitutional: Malaise, Weakness EENT: See HPI Cardiovascular: No symptoms reported Respiratory: No symptoms reported Gastrointestinal: No symptoms reported Genitourinary: No symptoms reported Musculoskeletal: No symptoms reported Skin: No symptoms reported Neurological/Psychological: No symptoms reported Physical Exam - Vital signs Vitals: Temp BP 98.7 F 143/88 H 01/29/19 18:33 01/29/19 18:33 - Notes Notes: Frail-appearing 73-year-old female, no acute distress. Parkinson's facies. Head is normocephalic and atraumatic, pupils are equal and round, reactive to light. Oral mucosa slightly dry with white coating noted, clears with rubbing. Heart is regular rate and rhythm, lungs are clear station bilaterally. Abdomen soft, nontender, normoactive bowel sounds. Skin is warm and dry. She does have cogwheel rigidity noted of the bilateral upper extremities. Course - Re-evaluation Re-evalutation: 01/29/19 21:40 Presents emergency department for evaluation. Vital signs are eating repeat urinalysis. Straight cath urinalysis fails to reveal any signs of infection. I did review her urine culture from her visit 2 days ago. It is failed to grow any bacteria. At this point I do not feel that any antibiotics are indicated. Her laboratory investigations do not reveal significant dehydration. She was drinking from a straw here, states she will increase fluid intake at home per . I will then discharge him home. They are strongly encouraged to follow-up with primary care as well as neurology. Return to the emergency department with worsening or new concerning symptoms. - Vital Signs Vital signs: Temp Pulse Resp BP Pulse Ox 98.7 F 85 18 144/83 H 98 01/29/19 18:33 01/29/19 18:45 01/29/19 18:45 01/29/19 18:45 01/29/19 18:45 - Laboratory Result Diagrams: 01/29/19 19:16 01/29/19 19:16 Laboratory results interpreted by me: 01/29/19 01/29/19 19:16 20:35 Calcium 10.4 H Total Protein 5.8 L Albumin 3.3 L Urine Ketones TRACE H Urine Ascorbic Acid 40 H [place] 0.3 L Discharge - Discharge Clinical Impression: Weakness Condition: Stable Disposition: HOME, SELF-CARE Instructions: Weakness ([facility]) Additional Instructions: Encourage hydration. Follow-up with primary care and neurology next week. Return to the emergency department with worsening or new concerning symptoms. Referrals: GARTH MITCHELL MD [Primary Care Provider] - Follow up as needed
[2019-01-29 22:07] VITALS: BP 154/84
== END 2019-01-29 22:07 | disposition home or self-care (01) ==
LOC: ER 18:33
DX: R53.1 Weakness (principal); R41.82 Altered mental status, unspecified; G20 Parkinson's disease; F02.80 Dementia in other diseases classified elsewhere, unspecified severity, without behavioral disturbance, psychotic disturbance, mood disturbance, and anxiety; E78.00 Pure hypercholesterolemia, unspecified; E11.9 Type 2 diabetes mellitus without complications; Z90.710 Acquired absence of both cervix and uterus
CPT/HCPCS: 36415; 51701; 80053; 80178; 81001; 82570; 83605; 85025; 87040; 99285

== ENCOUNTER 2019-02-06 16:53 | Inpatient (IN) | payer MEDICARE, OTHER ==
[2019-02-06 18:32] LABS: ABSOLUTE EOSINOPHILS # (AUTO) 0.2 10^3/uL (0.0-0.6); ABSOLUTE LYMPHOCYTES (AUTO) 1.5 10^3/uL (0.5-4.7); ABSOLUTE MONOCYTES (AUTO) 0.8 10^3/uL (0.1-1.4); ABSOLUTE NEUT (AUTO) 3.1 10^3/uL (1.7-8.2); BASOPHILS % (AUTO) 0.9 % (0-2); EOSINOPHILS % (AUTO) 3.6 % (0-6); HEMATOCRIT 43.4 % (36.0-47.0); HEMOGLOBIN 14.4 g/dL (12.0-15.5); LYMPHOCYTES % (AUTO) 27.5 % (13-45); MEAN CORPUSCULAR HEMOGLOBIN 29.4 pg (27.0-33.4); MEAN CORPUSCULAR HGB CONC 33.2 g/dL (32.0-36.0); MEAN CORPUSCULAR VOLUME 89 fl (80-97); MONOCYTES % (AUTO) 13.4 % (3-13); PLATELET COUNT 289 10^3/uL (150-450); RED BLOOD COUNT 4.91 10^6/uL (3.72-5.28); RED CELL DISTRIBUTION WIDTH 14.8 % (11.5-14.0); SEGMENTED NEUTROPHILS % (AUTO) 54.6 % (42-78); TOTAL CELLS COUNTED % (AUTO) 100 %; WHITE BLOOD COUNT 5.6 10^3/uL (4.0-10.5)
[2019-02-06 18:34] LABS: ALANINE AMINOTRANSFERASE 20 U/L (9-52); ALBUMIN 3.4 g/dL (3.5-5.0); ALKALINE PHOSPHATASE 92 U/L (38-126); ANION GAP 5 (5-19); ASPARTATE AMINO TRANSFERASE 44 U/L (14-36); BILIRUBIN,DIRECT 0.4 mg/dL (0.0-0.4); BILIRUBIN,TOTAL 0.4 mg/dL (0.2-1.3); BLOOD UREA NITROGEN 9 mg/dL (7-20); CALCIUM 9.8 mg/dL (8.4-10.2); CARBON DIOXIDE 30 mmol/L (22-30); CHLORIDE 107 mmol/L (98-107); GLUCOSE 119 mg/dL (75-110); POTASSIUM 4.2 mmol/L (3.6-5.0); SODIUM 142.3 mmol/L (137-145); TOTAL PROTEIN 6.3 g/dL (6.3-8.2)
[2019-02-06 19:25] LABS: APPEARANCE,URINE CLEAR; BILIRUBIN,URINE NEGATIVE (NEGATIVE); COLOR,URINE YELLOW; GLUCOSE, URINE NEGATIVE (NEGATIVE); KETONES,URINE 20 mg/dL (NEGATIVE); LEUKOCYTE ESTERASE,URINE NEGATIVE (NEGATIVE); NITRITE,URINE NEGATIVE (NEGATIVE); PROTEIN,URINE NEGATIVE (NEGATIVE); URINE SPECIFIC GRAVITY 1.014; UROBILINOGEN,URINE NEGATIVE mg/dL (<2.0)
--- NOTE | 2019-02-06 19:41 | ER Document Report ---
ED General - General Chief Complaint: Urinary Problem Stated Complaint: UNABLE TO DRINK Time Seen by Provider: 02/06/19 18:18 Cannot obtain history due to: Dementia Notes: Patient is a 73-year-old female history of bipolar disorder, hypothyroidism, diagnosed with Parkinson's, presents with her due to concerns of inability to eat or drink, worsening cognitive decline, effectively unable to ambulate at this time. The patient is profoundly demented, does not provide any meaningful history substantially limiting ability to obtain history today. The at the bedside reports that this is her fourth visit to the emergency department in the past 2 weeks for similar concerns. The patient he reports landy t he is effectively refusing to eat or drink anything and he cannot get her to take her medications. Of note the patient has not had primidone or carbidopa levodopa for almost 24 hours but notes that her shaking does not seem to be any worse at this time. She has not had any recent falls. No fever. No vomiting or diarrhea. TRAVEL OUTSIDE OF THE [place] IN LAST 30 DAYS: No - Related Data Allergies/Adverse Reactions: No Known Allergies Allergy (Verified 12/22/18 17:30) Past Medical History - General Information source: Relative Cannot obtain history due to: Dementia - Social History Smoking Status: Never Smoker Chew tobacco use (# tins/day): No Frequency of alcohol use: None Drug Abuse: None Lives with: Spouse/Significant other Family History: Reviewed & Not Pertinent Patient has suicidal ideation: No Patient has homicidal ideation: No - Past Medical History Cardiac Medical History: Reports: Hx Hypercholesterolemia Denies: Hx Heart Attack, Hx Hypertension Pulmonary Medical History: Denies: Hx Asthma, Hx Tuberculosis Neurological Medical History: Denies: Hx Cerebrovascular Accident, Hx Seizures Endocrine Medical History: Reports: Hx Diabetes Mellitus Type 2 Renal/ Medical History: Denies: Hx Peritoneal Dialysis GI Medical History: Denies: Hx Hepatitis, Hx Hiatal Hernia, Hx Ulcer Psychiatric Medical History: Reports: Hx Bipolar Disorder, Hx Schizophrenia Infectious Medical History: Denies: Hx Hepatitis Past Surgical History: Reports: Hx Hysterectomy. Denies: Hx Mastectomy, Hx Open Heart Surgery, Hx Pacemaker - Immunizations Immunizations up to date: Yes Hx Diphtheria, Pertussis, Tetanus Vaccination: Yes Hx Pneumococcal Vaccination: 09/28/12 Review of Systems - Review of Systems -: Yes ROS unobtainable due to patient's medical condition Physical Exam - Vital signs Vitals: Resp 18 02/06/19 16:58 Interpretation: Normal Notes: PHYSICAL EXAMINATION: GENERAL: Frail, cachectic elderly female in no overt distress HEAD: Atraumatic, normocephalic. EYES: Pupils equal round and reactive to light, extraocular movements intact, sclera anicteric, conjunctiva are normal. ENT: nares patent, oropharynx clear without exudates. Moist mucous membranes. NECK: Normal range of motion, supple without lymphadenopathy LUNGS: Breath sounds clear to auscultation bilaterally and equal. No wheezes rales or rhonchi. HEART: Regular rate and rhythm without murmurs ABDOMEN: Soft, nontender, normoactive bowel sounds. No guarding, no rebound. No masses appreciated. EXTREMITIES: Normal range of motion, no pitting or edema. No cyanosis. NEUROLOGICAL: Face symmetric. Tongue protrudes midline. Extraocular motions intact. Pupils are 2 mm and equally reactive. Gait deferred. 5 out of 5 strength in both the distal and proximal upper and lower extremities bila terally. Sensation is grossly intact throughout. PSYCH: Alert, oriented only to person SKIN: Warm, Dry, normal turgor, no rashes or lesions noted. Course - Re-evaluation Re-evalutation: 02/06/19 19:39 Patient presents with signs and symptoms that are most consistent with a progressive neurodegenerative condition likely Alzheimer's dementia. I do very much so question of diagnosis of Parkinson's as the patient has not received any carbidopa levodopa nor any primidone in almost 24 hours and yet she has no cogwheel rigidity, and no pill-rolling tremor, no inducible rigidity on repeated motions of her extremities. She is however profoundly cognitively impaired disoriented to everything except her name. She also is unable to probe to identify objects or other purpose. The patient may have a swallowing impairment but it seems more likely that she has lost the drive to eat. The patient has lost almost 20 kg in 6 weeks down to 46.4 kg today from 65 kg in early December. Her is requesting hospitalization and I did discuss with Dr. Shepard who has accepted given her profound weight loss. Of note I did have a long conversation with the about goals of care. He states that he and his never discussed specific desired care at the end of life but that she does have a living will that specifies she does not wish to be kept alive by artificial means. I did review with her that to me this would include something such as artificial feeding. We did discuss options of palliative and hospice care which I think are most appropriate at this point. These will be discussed further as an inpatient. 02/07/19 04:05 - Vital Signs Vital signs: Temp Pulse Resp BP Pulse Ox 98.5 F 108 H 16 162/73 H 99 02/06/19 23:00 02/06/19 23:00 02/06/19 23:00 02/06/19 23:00 02/06/19 23:00 - Laboratory Result Diagrams: 02/06/19 17:35 02/06/19 17:35 Laboratory results interpreted by me: 02/06/19 02/06/19 02/06/19 17:35 17:35 19:01 RDW 14.8 H Monocytes % 13.4 H Glucose 119 H AST 44 H Albumin 3.4 L Urine Ketones 20 H Urine Ascorbic Acid 40 H Discharge - Discharge Clinical Impression: Cognitive impairment, Anorexia, Cachexia, Weight loss Condition: Fair Disposition: ADMITTED INPATIENT Admitting Provider: Drea (Hospitalist) Unit Admitted: Medical Floor
[2019-02-06] MEDS ORDERED: MAGNESIUM HYDROXIDE SUSP 30 ML UDCUP PO PRN (21:44)
[2019-02-06] MEDS ORDERED: MAG HYDROX/AL HYDROX/SIMETH SUSP 30 ML UDCUP PO PRN (21:44)
[2019-02-06] MEDS ORDERED: ONDANSETRON HCL INJ/PF 4 MG/2 ML SDV IV PRN (21:44)
[2019-02-06] MEDS ORDERED: GLUCAGON,HUMAN RECOMB 1 MG INJ IM PRN (21:52)
[2019-02-06] MEDS ORDERED: DEXTROSE 50%-WATER 25 GM/50 ML DISP.SYRIN IV PRN ×2 (21:52)
[2019-02-06] MEDS ORDERED: DEXTROSE 40% GEL 15 GM TUBE PO PRN ×2 (21:52)
[2019-02-07] MEDS: RINGERS SOLUTION,LACTATED 1,000 ML IV PRN ×3 (00:37→14:23)
[2019-02-07] MEDS: HEPARIN SOD (PORCINE) 5,000 UNIT/ML 1 ML SYRINGE SUBCUT SCH ×4 (01:52→21:14)
[2019-02-07] MEDS: FAMOTIDINE INJ/PF 20 MG/2 ML SDV IV SCH ×3 (01:53→21:14)
[2019-02-07] MEDS: INSULIN LISPRO 100 UNIT/ML 3 ML VIAL SUBCUT SCH ×5 (01:55→21:21)
[2019-02-07] MEDS: METOCLOPRAMIDE HCL INJ/PF 10 MG/2 ML SDV IV SCH ×6 (01:57→21:14)
--- NOTE | 2019-02-07 02:03 | PDOC H&P ---
History of Present Illness Admission Date/PCP: 02/06/19 20:05 GARTH MITCHELL MD Patient complains of: Weight loss History of Present Illness: DONALD LAGOS is a 73 year old female who presented to the emergency room with her who complains that she has been unable to eat and drink for the last 6 weeks. Patient has severe dementia with a progressive neurodegenerative condition being treated as Parkinson's disease. Due to her dementia she is unable to offer any meaningful input into her medical care. Her states that she weighed 65 kg in early December and in the emergency room today her weight was recorded as 46.4 kg. Her states that he has been unable to get her to take medications or sustenance at home and he is desiring that she be admitted to the hospital and possibly be considered for hospice or palliative care. He did not wish for her to have any type of artificial feeding such as a PEG tube. In the emergency room the patient was found to have an essentially unremarkable and unchanged evaluation from her prior evaluations. She was subsequently admitted to the hospital for further evaluation and treatment with probable hospice or palliative care placement anticipated. Past Medical History Cardiac Medical History: Reports: Hyperlipidema Denies: Atrial Fibrillation, Coronary Artery Disease, DVT, Myocardial In farction, Hypertension, Pulmonary Embolism Pulmonary Medical History: Denies: Asthma, Chronic Obstructive Pulmonary Disease (COPD), Respiratory Failure, Tuberculosis EENT Medical History: Denies: Cataracts, Ears - Hearing aids Neurological Medical History: Reports: Other - Degenerative neurologic condition being treated as Parkinson's disease Denies: Hemorrhagic CVA, Ischemic CVA, Seizures Endocrine Medical History: Reports: Diabetes Mellitus Type 2, Hyperthyroidism Denies: Diabetes Mellitus Type 1, Hypothyroidism Renal/ Medical History: Denies: Chronic Kidney Disease, Nephrolithiasis Malignancy Medical History: Reports: None GI Medical History: Denies: Cirrhosis, Hepatitis, Hiatal Hernia Musculoskeltal Medical History: Denies: Arthritis, Gout Skin Medical History: Denies: Eczema, Psoriasis Psychiatric Medical History: Reports: Bipolar Disorder Denies: Alcohol Dependency, Substance Abuse, Tobacco Dependency Traumatic Medical History: Reports: None Hematology: Denies: Anemia, Bleeding Tendencies Infectious Medical History: Reports: None Past Surgical History Past Surgical History: Reports: Hysterectomy Social History Information Source: Relative Lives with: Spouse/Significant other Smoking Status: Never Smoker Frequency of Alcohol Use: None Hx Recreational Drug Use: No Drugs: None Hx Prescription Drug Abuse: No - Advance Directive Resuscitation Status: Do Not Resuscitate - DO NOT INTUBATE, no feeding tubes Surrogate healthcare decision maker:: Spouse Family History Family History: DM. denies: CAD, Malignancy Parental Family History Reviewed: Yes Children Family History Reviewed: No Sibling(s) Family History Reviewed.: Yes Medication/Allergy Home Medications: Aripiprazole [Abilify 15 mg Tablet] 15 mg PO DAILY 12/23/18 Benztropine Mesylate [Benztropine Mesylate 0.5 mg Tablet] 0.5 mg PO DAILY 12/23/18 Donepezil HCl [Aricept] 10 mg PO DAILY 12/23/18 Liothyronine Sodium [Cytomel] 10 mcg PO Q6AM 12/23/18 [place] Carbonate [Lithobid 300 mg Capsule] 300 mg PO TID 12/23/18 Lorazepam [Ativan 1 mg Tablet] 1 mg PO DAILY 12/23/18 Metformin HCl [Glucophage XR 500 mg Tablet] 1,000 mg PO BID 12/23/18 Pravastatin Sodium [Pravachol] 40 mg PO QHS 12/23/18 Primidone 125 mg PO TID 12/23/18 Quetiapine Fumarate [Seroquel] 800 mg PO DAILY 12/23/18 Selegiline [Emsam] 1 patch TD DAILY 12/23/18 Zolpidem Tartrate [Ambien] 10 mg PO QHS 12/23/18 Cephalexin Monohydrate [Keflex 500 mg Capsule] 500 mg PO BID 7 Days #14 capsule 01/27/19 Allergies/Adverse Reactions: No Known Allergies Allergy (Verified 12/22/18 17:30) Review of Systems ROS unobtainable: Due to mental status - Severe dementia Physical Exam Vital Signs: Temp Pulse Resp BP Pulse Ox 98.1 F 20 162/97 H 02/06/19 17:04 02/06/19 17:04 02/06/19 17:04 Intake & Output 02/04/19 02/05/19 02/06/19 23:59 23:59 23:59 Weight 46.4 kg General appearance: PRESENT: no acute distress, cooperative Head exam: PRESENT: atraumatic, normocephalic Eye exam: ABSENT: conjunctival injection, nystagmus, scleral icterus Ear exam: PRESENT: normal external ear exam. ABSENT: bleeding, drainage Mouth exam: PRESENT: dry mucosa, neck supple Neck exam: ABSENT: JVD, thyromegaly, tracheal deviation Respiratory exam: PRESENT: clear to auscultation concepcion, symmetrical, unlabored Cardiovascular exam: PRESENT: RRR. ABSENT: clicks, gallop, rubs Pulses: PRESENT: normal radial pulses, normal dorsalis pedis pul Vascular exam: PRESENT: normal capillary refill. ABSENT: pallor GI/Abdominal exam: PRESENT: normal bowel sounds, soft Rectal exam: PRESENT: deferred Extremities exam: ABSENT: joint swelling, pedal edema Musculoskeletal exam: ABSENT: deformity, dislocation Neurological exam: PRESENT: alert, awake, CN II-XII grossly intact. ABSENT: oriented to person, oriented to place, oriented to time, oriented to situation, motor sensory deficit Psychiatric exam: PRESENT: appropriate affect - Pleasant affect and socially appropriate, normal mood - Affable mood Skin exam: PRESENT: dry, intact, warm. ABSENT: jaundice, rash, urticaria Results Laboratory Results: 02/06/19 17:35 02/06/19 17:35 02/06/19 02/06/19 02/06/19 17:35 17:35 19:01 WBC 5.6 RBC 4.91 Hgb 14.4 Hct 43.4 MCV 89 MCH 29.4 MCHC 33.2 RDW 14.8 H Plt Count 289 Seg Neutrophils % 54.6 Lymphocytes % 27.5 Monocytes % 13.4 H Eosinophils % 3.6 Basophils % 0.9 Absolute Neutrophils 3.1 Absolute Lymphocytes 1.5 Absolute Monocytes 0.8 Absolute Eosinophils 0.2 Absolute Basophils 0.0 Sodium 142.3 Potassium 4.2 Chloride 107 Carbon Dioxide 30 Anion Gap 5 BUN 9 Creatinine 0.63 Est GFR ( Amer) > 60 Est GFR (Non-Af Amer) > 60 Glucose 119 H Calcium 9.8 Total Bilirubin 0.4 AST 44 H ALT 20 Alkaline Phosphatase 92 Total Protein 6.3 Albumin 3.4 L Urine Color YELLOW Urine Appearance CLEAR Urine pH 6.0 Ur Specific [place] 1.014 Urine Protein NEGATIVE Urine Glucose (UA) NEGATIVE Urine Ketones 20 H Urine Blood NEGATIVE Urine Nitrite NEGATIVE Ur Leukocyte Esterase NEGATIVE Urine WBC (Auto) 2 Urine RBC (Auto) 0 Assessment and Plan - Diagnosis (1) Hyperthyroidism Is this a current diagnosis for this admission?: Yes Plan: A thyroid profile will be obtained. Patient has been on Cytomel in the past and may require ongoing therapy. Poorly controlled hyperthyroidism could well cont ribute to her overall dementia and other neurologic changes. (2) Weight loss Is this a current diagnosis for this admission?: Yes Plan: Patient will be assessed for her ability to swallow and once that is been confirmed efforts will be made at encouraging her to increase her oral intake. Appetite stimulants may need to be used. A CBC and metabolic profile will be obtained to evaluate the patient on an as-needed basis. 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 A speech therapy, physical therapy and Occupational Therapy consultation will be obtained. director of women's services will be consulted for evaluation and assistance in arranging for disposition. At the present time I see no evidence of Parkinson's disease and as such I have arranged for the patient to have a medication holiday to allow a thorough medical reevaluation. (4) Schizophrenia and bipolar disorder Is this a current diagnosis for this admission?: Yes Plan: Patient is currently on numerous medications which may have neurologic and psychologic side effects. As such I have arranged for her to have a medication holiday such that her medical situation can be reassessed. - Time Time Spent with patient: 15-24 minutes Medications reviewed and adjusted accordingly: Yes Anticipated discharge: Hospice - Inpatient Certification Based on my medical assessment, after consideration of the patient's comorbidities, presenting symptoms, or acuity I expect that the services needed warrant INPATIENT care.: Yes I certify that my determination is in accordance with my understanding of Medicare's requirements for reasonable and necessary INPATIENT services [42 CFR 412.3e].: Yes Medical Necessity: Failure to Improve With Outpatient Therapy, Significant Comorbidiites Make Outpatient Treatment Too Risky, Need Close Monitoring Due to Risk of Patient Decompensation, Need for Neurological Checks, Risk of Complication if Not Cared For in Hospital, Risk of Diagnosis Which Will Require Inpatient Eval/Care/Monitoring
[2019-02-07 06:52] LABS: HEMATOCRIT 42.7 % (36.0-47.0); HEMOGLOBIN 14.3 g/dL (12.0-15.5); MEAN CORPUSCULAR HEMOGLOBIN 29.4 pg (27.0-33.4); MEAN CORPUSCULAR HGB CONC 33.6 g/dL (32.0-36.0); MEAN CORPUSCULAR VOLUME 88 fl (80-97); PLATELET COUNT 255 10^3/uL (150-450); RED BLOOD COUNT 4.88 10^6/uL (3.72-5.28); RED CELL DISTRIBUTION WIDTH 14.4 % (11.5-14.0); WHITE BLOOD COUNT 6.2 10^3/uL (4.0-10.5)
[2019-02-07 07:08] LABS: ALANINE AMINOTRANSFERASE 27 U/L (9-52); ALBUMIN 3.5 g/dL (3.5-5.0); ALKALINE PHOSPHATASE 101 U/L (38-126); ANION GAP 10 (5-19); ASPARTATE AMINO TRANSFERASE 27 U/L (14-36); BILIRUBIN,DIRECT 0.3 mg/dL (0.0-0.4); BILIRUBIN,TOTAL 0.3 mg/dL (0.2-1.3); BLOOD UREA NITROGEN 8 mg/dL (7-20); CALCIUM 10.4 mg/dL (8.4-10.2); CARBON DIOXIDE 25 mmol/L (22-30); CHLORIDE 107 mmol/L (98-107); GLUCOSE 139 mg/dL (75-110); POTASSIUM 4.4 mmol/L (3.6-5.0); SODIUM 141.6 mmol/L (137-145); TOTAL PROTEIN 6.1 g/dL (6.3-8.2)
[2019-02-07 07:24] LABS: FREE T3 2.96 pg/mL (2.77-5.27); FREE T4 (FREE THYROXINE) 0.8 ng/dL (0.78-2.19)
[2019-02-07 07:37] LABS: THYROID STIMULATING HORMONE 0.4 uIU/mL (0.47-4.68)
[2019-02-07] MEDS: DOCUSATE SODIUM 100 MG/10 ML UDC PO SCH ×2 (11:30→21:14)
--- NOTE | 2019-02-07 17:15 | PDOC PROGRESS REPORT ---
Subjective Progress Note for:: 02/07/19 Subjective:: No adverse events overnight. She still displays a lot of motor agitation. She is not eating. She says very little, but if you ask her anything is wrong she will say "no." Reason For Visit: WEIGHT LOSS 18.6 KG OVER 6 WEEKS Physical Exam Vital Signs: Temp Pulse Resp BP Pulse Ox 97.6 F 104 H 16 191/89 H 95 02/07/19 11:00 02/07/19 11:00 02/07/19 11:00 02/07/19 11:00 02/07/19 11:00 Intake & Output 02/06/19 02/07/19 02/08/19 06:59 06:59 06:59 Intake Total 520 1300 Balance 520 1300 Weight 47.3 kg General appearance: PRESENT: disheveled, mild distress, thin. ABSENT: cooperative Respiratory exam: PRESENT: clear to auscultation concepcion, symmetrical, unlabored. ABSENT: accessory muscle use, chest wall tenderness, crackles, prolonged expiratory phas, rhonchi, tachypnea, wheezes Cardiovascular exam: PRESENT: RRR, +S1, +S2 Pulses: PRESENT: normal carotid pulses Vascular exam: PRESENT: normal capillary refill GI/Abdominal exam: PRESENT: normal bowel sounds, soft. ABSENT: distended, guarding, rebound, tenderness Extremities exam: ABSENT: clubbing, pedal edema Musculoskeletal exam: PRESENT: normal inspection. ABSENT: deformity Neurological exam: PRESENT: awake, oriented to person. ABSENT: oriented to place, oriented to time, oriented to situation Psychiatric exam: PRESENT: flat affect Focused psych exam: PRESENT: psychomotor agitation Skin exam: PRESENT: dry, pallor, warm Results Laboratory Results: 02/07/19 06:15 02/07/19 06:15 02/06/19 02/06/19 02/06/19 17:35 17:35 19:01 WBC 5.6 RBC 4.91 Hgb 14.4 Hct 43.4 MCV 89 MCH 29.4 MCHC 33.2 RDW 14.8 H Plt Count 289 Seg Neutrophils % 54.6 Lymphocytes % 27.5 Monocytes % 13.4 H Eosinophils % 3.6 Basophils % 0.9 Absolute Neutrophils 3.1 Absolute Lymphocytes 1.5 Absolute Monocytes 0.8 Absolute Eosinophils 0.2 Absolute Basophils 0.0 Sodium 142.3 Potassium 4.2 Chloride 107 Carbon Dioxide 30 Anion Gap 5 BUN 9 Creatinine 0.63 Est GFR ( Amer) > 60 Est GFR (Non-Af Amer) > 60 Glucose 119 H Calcium 9.8 Magnesium Total Bilirubin 0.4 AST 44 H ALT 20 Alkaline Phosphatase 92 Total Protein 6.3 Albumin 3.4 L TSH Free T4 Free T3 pg/mL Urine Color YELLOW Urine Appearance CLEAR Urine pH 6.0 Ur Specific [place] 1.014 Urine Protein NEGATIVE Urine Glucose (UA) NEGATIVE Urine Ketones 20 H Urine Blood NEGATIVE Urine Nitrite NEGATIVE Ur Leukocyte Esterase NEGATIVE Urine WBC (Auto) 2 Urine RBC (Auto) 0 02/07/19 02/07/19 02/07/19 06:15 06:15 06:15 WBC 6.2 RBC 4.88 Hgb 14.3 Hct 42.7 MCV 88 MCH 29.4 MCHC 33.6 RDW 14.4 H Plt Count 255 Seg Neutrophils % Lymphocytes % Monocytes % Eosinophils % Basophils % Absolute Neutrophils Absolute Lymphocytes Absolute Monocytes Absolute Eosinophils Absolute Basophils Sodium 141.6 Potassium 4.4 Chloride 107 Carbon Dioxide 25 Anion Gap 10 BUN 8 Creatinine 0.57 Est GFR ( Amer) > 60 Est GFR (Non-Af Amer) > 60 Glucose 139 H Calcium 10.4 H Magnesium 1.8 Total Bilirubin 0.3 AST 27 ALT 27 Alkaline Phosphatase 101 Total Protein 6.1 L Albumin 3.5 TSH 0.40 L Free T4 0.80 Free T3 pg/mL 2.96 Urine Color Urine Appearance Urine pH Ur Specific [place] Urine Protein Urine Glucose (UA) Urine Ketones Urine Blood Urine Nitrite Ur Leukocyte Esterase Urine WBC (Auto) Urine RBC (Auto) Assessment and Plan - Diagnosis (1) Anorexia Is this a current diagnosis for this admission?: Yes Plan: Spoke at length with her about the progression of her disease. He has requested a hospice consultation. (2) Schizophrenia and bipolar disorder Is this a current diagnosis for this admission?: Yes Plan: Suspect progression of her disease. Do not suspect that this is Parkinson's disease in any way. Hospice consultation as noted. - Time Time Spent with patient: 15-24 minutes
[2019-02-07] MEDS: HYDRALAZINE HCL INJ/PF 20 MG/1 ML SDV IV PRN (18:52)
[2019-02-07 23:32] LABS: APPEARANCE,URINE CLEAR; BILIRUBIN,URINE NEGATIVE (NEGATIVE); COLOR,URINE STRAW; GLUCOSE, URINE NEGATIVE (NEGATIVE); KETONES,URINE TRACE mg/dL (NEGATIVE); LEUKOCYTE ESTERASE,URINE SMALL (NEGATIVE); NITRITE,URINE NEGATIVE (NEGATIVE); PROTEIN,URINE NEGATIVE (NEGATIVE); URINE SPECIFIC GRAVITY 1.003; UROBILINOGEN,URINE NEGATIVE mg/dL (<2.0)
[2019-02-08] MEDS: HEPARIN SOD (PORCINE) 5,000 UNIT/ML 1 ML SYRINGE SUBCUT SCH ×3 (05:34→21:21)
[2019-02-08] MEDS: INSULIN LISPRO 100 UNIT/ML 3 ML VIAL SUBCUT SCH ×4 (08:25→21:53)
[2019-02-08] MEDS: METOCLOPRAMIDE HCL INJ/PF 10 MG/2 ML SDV IV SCH ×4 (08:33→21:21)
[2019-02-08] MEDS: HYDRALAZINE HCL INJ/PF 20 MG/1 ML SDV IV PRN ×2 (08:33→18:13)
[2019-02-08] MEDS: DOCUSATE SODIUM 100 MG/10 ML UDC PO SCH (09:54)
[2019-02-08] MEDS: FAMOTIDINE INJ/PF 20 MG/2 ML SDV IV SCH ×2 (09:58→21:21)
[2019-02-08] MEDS ORDERED: ONDANSETRON HCL INJ/PF 4 MG/2 ML SDV IV PRN (14:30)
[2019-02-08] MEDS ORDERED: LORAZEPAM 1 MG TABLET PO PRN (15:24)
--- NOTE | 2019-02-08 17:00 | PDOC PROGRESS REPORT ---
Subjective Progress Note for:: 02/08/19 Subjective:: No adverse events overnight. No new complaints. She still not eating very much. She did fine for speech therapy, she just does not want to eat. Apparently when pills are put in her mouth she will just keep them in her mouth without swallowing. Reason For Visit: WEIGHT LOSS 18.6 KG OVER 6 WEEKS Physical Exam Vital Signs: Temp Pulse Resp BP Pulse Ox 97.7 F 107 H 16 167/72 H 98 02/08/19 00:00 02/08/19 00:00 02/08/19 00:00 02/08/19 06:02 02/08/19 00:00 Intake & Output 02/07/19 02/08/19 02/09/19 06:59 06:59 06:59 Intake Total 520 1660 Output Total 2850 Balance 520 -1190 Weight 47.3 kg 48.1 kg General appearance: PRESENT: disheveled, mild distress, thin. ABSENT: cooperative Respiratory exam: PRESENT: clear to auscultation concepcion, symmetrical, unlabored. ABSENT: accessory muscle use, chest wall tenderness, crackles, prolonged expiratory phas, rhonchi, tachypnea, wheezes Cardiovascular exam: PRESENT: RRR, +S1, +S2 Pulses: PRESENT: normal carotid pulses Vascular exam: PRESENT: normal capillary refill GI/Abdominal exam: PRESENT: normal bowel sounds, soft. ABSENT: distended, guarding, rebound, tenderness Extremities exam: ABSENT: clubbing, pedal edema Musculoskeletal exam: PRESENT: normal inspection. ABSENT: deformity Neurological exam: PRESENT: awake, oriented to person. ABSENT: oriented to place, oriented to time, oriented to situation Psychiatric exam: PRESENT: flat affect Focused psych exam: PRESENT: psychomotor agitation Skin exam: PRESENT: dry, pallor, warm Results Laboratory Results: 02/07/19 06:15 02/07/19 06:15 02/07/19 23:16 Urine Color STRAW Urine Appearance CLEAR Urine pH 8.0 Ur Specific [place] 1.003 Urine Protein NEGATIVE Urine Glucose (UA) NEGATIVE Urine Ketones TRACE H Urine Blood NEGATIVE Urine Nitrite NEGATIVE Ur Leukocyte Esterase SMALL H Urine WBC (Auto) 2 Urine RBC (Auto) 2 Assessment and Plan - Diagnosis (1) Anorexia Is this a current diagnosis for this admission?: Yes Plan: Spoke at length with her about the progression of her disease. He has requested a hospice consultation. She did fine for swallow evaluation today, she just does not want to eat. (2) Schizophrenia and bipolar disorder Is this a current diagnosis for this admission?: Yes Plan: Suspect progression of her disease. Do not suspect that this is Parkinson's disease in any way. Hospice consultation as noted. - Time Time Spent with patient: 15-24 minutes
[2019-02-08] MEDS: DOCUSATE SODIUM 100 MG CAPSULE PO SCH (18:14)
[2019-02-09] MEDS: HEPARIN SOD (PORCINE) 5,000 UNIT/ML 1 ML SYRINGE SUBCUT SCH (05:10)
[2019-02-09 08:33] VITALS: BP 179/74
[2019-02-09] MEDS: INSULIN LISPRO 100 UNIT/ML 3 ML VIAL SUBCUT SCH ×2 (08:43→10:53)
[2019-02-09] MEDS ORDERED: SELEGILINE TD SCH (10:00)
[2019-02-09] MEDS: DOCUSATE SODIUM 100 MG CAPSULE PO SCH (10:54)
[2019-02-09] MEDS: METOCLOPRAMIDE HCL INJ/PF 10 MG/2 ML SDV IV SCH ×2 (10:55→10:56)
[2019-02-09] MEDS: FAMOTIDINE INJ/PF 20 MG/2 ML SDV IV SCH (10:57)
--- NOTE | 2019-02-10 18:47 | PDOC DISCHARGE SUMMARY ---
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 Is this a current diagnosis for this admission?: Yes (3) Anorexia Is this a current diagnosis for this admission?: Yes - Additional Information Resuscitation Status: Do Not Resuscitate - DO NOT INTUBATE, no feeding tubes Discharge Diet: As Tolerated Discharge Activity: Activity As Tolerated Home Medications: Carbidopa/Levodopa [Sinemet 25-100 mg Tablet] 2 each PO Q8 02/07/19 Lorazepam [Ativan 1 mg Tablet] 2 mg PO HSP PRN 02/07/19 Metformin HCl [Glucophage 500 mg Tablet] 500 mg PO BID 02/07/19 Pravastatin Sodium [Pravachol] 40 mg PO DAILY 02/07/19 Primidone [Mysoline 250 mg Tablet] 250 mg PO Q8 02/07/19 Selegiline [Emsam] 1 each TD DAILY 02/07/19 History of Present Illness History of Present Illness: Admitting hospitalist's H&P: DONALD LAGOS is a 73 year old female who presented to the emergency room with her who complains that she has been unable to eat and drink for the last 6 weeks. Patient has severe dementia with a progressive neurodegenerative condition being treated as Parkinson's disease. Due to her dementia she is unable to offer any meaningful input into her medical care. Her states that she weighed 65 kg in early December and in the emergency room today her weight was recorded as 46.4 kg. Her states that he has been unable to get her to take medications or sustenance at home and he is desiring that she be admitted to the hospital and possibly be considered for hospice or palliative care. He did not wish for her to have any type of artificial feeding such as a PEG tube. In the emergency room the patient was found to have an essentially unremarkable and unchanged evaluation from her prior evaluations. She was subsequently admitted to the hospital for further evaluation and treatment with probable hospice or palliative care placement anticipated. Hospital Course Hospital Course: In summary, this is a 73-year-old female with known dementia and possible Parkinson's disease who was brought in due to progression of disease particularly refusing to eat taking any of her medications. Most plan has been arranged by preceding providers in patient's /DPOA has requested for her to be transitioned to hospice. On day of discharge, she is not in distress on encounter. She is not oriented to any sphere. She does recognize me when I tried to answer questions but not able to engage in any coherent conversation. She has not been eating. She will go home today on hospice and possibly will be transitioned later to [facility] hospice depending on how her disease progresses. Physical Exam Vital Signs: Temp Pulse Resp BP Pulse Ox 98.3 F 98 15 179/74 H 98 02/09/19 13:36 02/09/19 13:36 02/09/19 13:36 02/09/19 13:36 02/09/19 13:36 Intake & Output 02/09/19 02/10/19 02/11/19 06:59 06:59 06:59 Intake Total 474 240 Output Total 1575 350 Balance -1101 -110 Weight 108 lb 14.534 oz General appearance: PRESENT: no acute distress, well-developed, well-nourished Head exam: PRESENT: atraumatic, normocephalic Eye exam: PRESENT: conjunctiva pink, EOMI, PERRLA. ABSENT: scleral icterus Ear exam: PRESENT: normal external ear exam Mouth exam: PRESENT: moist, tongue midline Neck exam: ABSENT: carotid bruit, JVD, lymphadenopathy, thyromegaly Respiratory exam: PRESENT: clear to auscultation concepcion. ABSENT: rales, rhonchi, wheezes Cardiovascular exam: PRESENT: RRR. ABSENT: diastolic murmur, rubs, systolic murmur Pulses: PRESENT: normal dorsalis pedis pul GI/Abdominal exam: PRESENT: normal bowel sounds, soft. ABSENT: distended, guarding, mass, organolmegaly, rebound, tenderness Rectal exam: PRESENT: deferred Neurological exam: PRESENT: awake, CN II-XII grossly intact. ABSENT: oriented to person, oriented to place, oriented to time, oriented to situation, motor sensory deficit Results Laboratory Results: 02/07/19 06:15 02/07/19 06:15 Qualifiers - * PATIENT BEING DISCHARGED WITH ANY OF THE FOLLOWING DIAGNOSIS: No Acute Heart Failure Is this a Heart Failure Patient?: No
== END 2019-02-09 14:49 | disposition hospice, home (50) | DRG 57 ==
LOC: ER 16:53 → EH 20:05 → 4S 22:20
PROVIDERS: ADMIT Emergency Medicine; ATTEND Emergency Medicine
DX: G30.1 Alzheimer's disease with late onset (principal); Z68.1 Body mass index [BMI] 19.9 or less, adult; F02.80 Dementia in other diseases classified elsewhere, unspecified severity, without behavioral disturbance, psychotic disturbance, mood disturbance, and anxiety; R63.0 Anorexia; E78.5 Hyperlipidemia, unspecified; E11.9 Type 2 diabetes mellitus without complications; E05.90 Thyrotoxicosis, unspecified without thyrotoxic crisis or storm; F50.89 Other specified eating disorder; F25.0 Schizoaffective disorder, bipolar type; Z90.710 Acquired absence of both cervix and uterus; Z66 Do not resuscitate; Z83.3 Family history of diabetes mellitus; Z79.899 Other long term (current) drug therapy; Z79.84 Long term (current) use of oral hypoglycemic drugs
CPT/HCPCS: 36415; 80053; 81001; 82962; 83735; 84439; 84443; 84481; 85025; 85027; 99285; J0360; J1644; J2765; J3490; J7120; S0028

== ENCOUNTER 2019-02-15 11:17 | Emergency (ER) | payer MEDICARE, OTHER ==
[2019-02-15] MEDS ORDERED: NORMAL SALINE 1000 ML 1,000 ML IV ONE (11:23)
--- NOTE | 2019-02-15 11:38 | ER Document Report ---
ED General - General Stated Complaint: DEHYDRATION Time Seen by Provider: 02/15/19 11:23 Primary Care Provider: GARTH MITCHELL MD [Primary Care Provider] - Follow up as needed TRAVEL OUTSIDE OF THE [place] IN LAST 30 DAYS: No - HPI Notes: Patient is a 73 yo Female that presents to the emergency department for chief complaint of dehydration and anorexia. Patient has had recent admission to this facility for anorexia and progressive dementia. Patient has a neurodegenerative disease that is according to chart review being treated like Alzheimer's. She has had recent functional decline, weight loss and anorexia. Patient was admitted for dehydration and palliative consultation recently and went home on hospice. Patient's states that she has continued to not eat or drink anything and he is concerned she is getting dehydrated which is why he brought her to the ER today. Patient did say that she vomited which has been states is not accurate. Patient is somnolent and does not provide much HPI. Patient's is POA. Past Medical History: Dementia, anorexia Past Surgical History: Reviewed in chart Social History: No tobacco drugs or alcohol Family History: Reviewed and noncontributory for presenting illness Allergies: Reviewed, see documented allergy list. REVIEW OF SYSTEMS: Unable to obtain because of patient's dementia PHYSICAL EXAMINATION: Vital signs reviewed, nursing noted reviewed. GENERAL: Ill-appearing, thin and frail and in no acute distress. HEAD: Atraumatic, normocephalic. EYES: Eyes appear normal, extraocular movements intact, sclera anicteric, conjunctiva are normal. ENT: nares patent, oropharynx clear without exudates. Dry mucous membranes. NECK: Normal range of motion, supple without lymphadenopathy LUNGS: Breath sounds clear to auscultation bilaterally and equal. No wheezes rales or rhonchi. HEART: Tachycardic rate and regular rhythm without murmurs ABDOMEN: Soft, nontender, normoactive bowel sounds. No rebound, guarding, or rigidity. No masses appreciated. EXTREMITIES: Nontender, good range of motion, no pitting or edema. NEUROLOGICAL: Oriented to person and place, somnolent, moves all extremities spontaneously Motor and sensory grossly intact on exam. SKIN: Warm, Dry, normal turgor, no rashes or lesions noted on exposed skin - Related Data Allergies/Adverse Reactions: No Known Allergies Allergy (Verified 12/22/18 17:30) Past Medical History - Social History Smoking Status: Never Smoker Family History: Reviewed & Not Pertinent - Past Medical History Cardiac Medical History: Reports: Hx Hypercholesterolemia Denies: Hx Atrial Fibrillation, Hx Coronary Artery Disease, Hx DVT, Hx Heart Attack, Hx Hypertension, Hx Pulmonary Embolism Pulmonary Medical History: Denies: Hx Asthma, Hx COPD, Hx Respiratory Failure, Hx Tuberculosis Neurological Medical History: Denies: Hx Cerebrovascular Accident, Hx Seizures Endocrine Medical History: Reports: Hx Diabetes Mellitus Type 2, Hx Hyperthyroidism. Denies: Hx Diabetes Mellitus Type 1, Hx Hypothyroidism Renal/ Medical History: Denies: Hx Peritoneal Dialysis GI Medical History: Denies: Hx Cirrhosis, Hx Hepatitis, Hx Hiatal Hernia, Hx Ulcer Musculoskeletal Medical History: Denies Hx Arthritis, Denies Hx Gout Skin Medical History: Denies Hx Eczema, Denies Hx Psoriasis Psychiatric Medical History: Reports: Hx Bipolar Disorder, Hx Schizophrenia Infectious Medical History: Denies: Hx Hepatitis Past Surgical History: Reports: Hx Hysterectomy. Denies: Hx Mastectomy, Hx Open Heart Surgery, Hx Pacemaker - Immunizations Immunizations up to date: Yes Hx Diphtheria, Pertussis, Tetanus Vaccination: Yes Hx Pneumococcal Vaccination: 09/28/12 Physical Exam - Vital signs Vitals: Temp Pulse Resp BP Pulse Ox 99.1 F 103 H 25 H 152/75 H 96 02/15/19 11:24 02/15/19 11:24 02/15/19 11:24 02/15/19 11:24 02/15/19 11:24 Course - Re-evaluation Re-evalutation: 02/15/19 11:37 Vitals reviewed. Nursing notes reviewed. Patient is somnolent and will shake her head yes and no to answer questions. She was able to tell me her name and that she was in the hospital but other than that she cannot provide much history and occasionally does mumble incomprehensibly. She is mildly tachycardic with dry mucous membranes and started on IV fluids for her apparent dehydration. Patient's is at bedside currently. We discussed patient's recent admission to the hospital and hospice management. Patient has been is now considering PEG tube since she has continued to be anorexic. 02/15/19 12:27 Patient's lab work shows a slight hyperglycemia but is otherwise unremarkable. Her renal function and electrolytes are normal. Patient has received 1 L of fluid and her mucous membranes appear more moist. Her mental status is unchanged from presentation and reportedly baseline for her. Her hospice nurse is now at bedside. I did have further discussions with patient's family regarding the option of withdrawing hospice and placing a PEG tube. This is ill advised given that her hospice nurse states her life expectancy is under 6 months. At this time family has decided to stay with hospice and forego any further treatment. Patient be discharged back into the care of the family and hospice at home. Laboratory 02/15/19 02/15/19 11:40 11:40 WBC 5.9 RBC 4.59 Hgb 13.4 Hct 40.7 MCV 89 MCH 29.2 MCHC 32.9 RDW 14.7 H Plt Count 229 Seg Neutrophils % 61.0 Lymphocytes % 19.9 Monocytes % 17.0 H Eosinophils % 1.2 Basophils % 0.9 Absolute Neutrophils 3.6 Absolute Lymphocytes 1.2 Absolute Monocytes 1.0 Absolute Eosinophils 0.1 Absolute Basophils 0.1 Sodium 143.2 Potassium 4.5 Chloride 105 Carbon Dioxide 30 Anion Gap 8 BUN 7 Creatinine 0.63 Est GFR ( Amer) > 60 Est GFR (Non-Af Amer) > 60 Glucose 125 H Calcium 9.9 Total Bilirubin 0.5 Direct Bilirubin 0.2 Neonat Total Bilirubin Not Reportable Neonat Direct Bilirubin Not Reportable Neonat Indirect Bili Not Reportable AST 13 L ALT 25 Alkaline Phosphatase 103 Total Protein 5.7 L Albumin 3.1 L Lipase 54.8 - Vital Signs Vital signs: Temp Pulse Resp BP Pulse Ox 99.1 F 103 H 25 H 152/75 H 96 02/15/19 11:24 02/15/19 11:24 02/15/19 11:24 02/15/19 11:24 02/15/19 11:24 - Laboratory Result Diagrams: 02/15/19 11:40 02/15/19 11:40 Laboratory results interpreted by me: 02/15/19 02/15/19 11:40 11:40 RDW 14.7 H Monocytes % 17.0 H Glucose 125 H AST 13 L Total Protein 5.7 L Albumin 3.1 L Discharge - Discharge Clinical Impression: Dehydration, Anorexia Condition: Stable Disposition: HOME, SELF-CARE Instructions: Dehydration ([facility]) Additional Instructions: Please return to the emergency department if you have any worsening, or concern of your symptoms. Please return to the emergency department if you develop chest pain, difficulty breathing, severe abdominal pain, or ongoing vomiting. Please follow-up with your primary care physician in 2-3 days and any other recommended physicians. If prescribed, take all medications as directed. If you have any questions or concerns do not hesitate to return the emergency department for evaluation. Contact your hospice nurse for any concerns that may arise at home. Referrals: GARTH MITCHELL MD [Primary Care Provider] - Follow up as needed
[2019-02-15 11:52] LABS: ABSOLUTE BASOPHILS # (AUTO) 0.1 10^3/uL (0.0-0.2); ABSOLUTE EOSINOPHILS # (AUTO) 0.1 10^3/uL (0.0-0.6); ABSOLUTE LYMPHOCYTES (AUTO) 1.2 10^3/uL (0.5-4.7); ABSOLUTE NEUT (AUTO) 3.6 10^3/uL (1.7-8.2); BASOPHILS % (AUTO) 0.9 % (0-2); EOSINOPHILS % (AUTO) 1.2 % (0-6); HEMATOCRIT 40.7 % (36.0-47.0); HEMOGLOBIN 13.4 g/dL (12.0-15.5); LYMPHOCYTES % (AUTO) 19.9 % (13-45); MEAN CORPUSCULAR HEMOGLOBIN 29.2 pg (27.0-33.4); MEAN CORPUSCULAR HGB CONC 32.9 g/dL (32.0-36.0); MEAN CORPUSCULAR VOLUME 89 fl (80-97); PLATELET COUNT 229 10^3/uL (150-450); RED BLOOD COUNT 4.59 10^6/uL (3.72-5.28); RED CELL DISTRIBUTION WIDTH 14.7 % (11.5-14.0); TOTAL CELLS COUNTED % (AUTO) 100 %; WHITE BLOOD COUNT 5.9 10^3/uL (4.0-10.5)
[2019-02-15 12:05] LABS: ALANINE AMINOTRANSFERASE 25 U/L (9-52); ALBUMIN 3.1 g/dL (3.5-5.0); ALKALINE PHOSPHATASE 103 U/L (38-126); ANION GAP 8 (5-19); ASPARTATE AMINO TRANSFERASE 13 U/L (14-36); BILIRUBIN,DIRECT 0.2 mg/dL (0.0-0.4); BILIRUBIN,TOTAL 0.5 mg/dL (0.2-1.3); BLOOD UREA NITROGEN 7 mg/dL (7-20); CALCIUM 9.9 mg/dL (8.4-10.2); CARBON DIOXIDE 30 mmol/L (22-30); CHLORIDE 105 mmol/L (98-107); GLUCOSE 125 mg/dL (75-110); LIPASE 54.8 U/L (23-300); POTASSIUM 4.5 mmol/L (3.6-5.0); SODIUM 143.2 mmol/L (137-145); TOTAL PROTEIN 5.7 g/dL (6.3-8.2)
[2019-02-15 13:27] VITALS: BP 138/68
== END 2019-02-15 13:25 | disposition home or self-care (01) ==
LOC: ER 11:17
DX: E86.0 Dehydration (principal); R63.0 Anorexia; R63.4 Abnormal weight loss; F03.90 Unspecified dementia, unspecified severity, without behavioral disturbance, psychotic disturbance, mood disturbance, and anxiety; R00.0 Tachycardia, unspecified; E11.65 Type 2 diabetes mellitus with hyperglycemia
CPT/HCPCS: 99284; 96360; 96361; 36415; 83690; 85025; 80053; J7030

== ENCOUNTER 2019-05-11 06:50 | Day surgery (SDC) | payer MEDICARE, OTHER ==
[~2019-05-11 06:50] MED LIST: BUPIVACAINE HCL 0.75% INJ/PF (7.5 MG/1 ML) 10 ML SDV OD PRN; KETOROLAC TROMETHAMINE 0.45% 4 DROP/0.4 ML DROPERETTE OD PRN; LIDOCAINE 4% INJ/PF (40 MG/ML) 5 ML AMPUL OD PRN
[2019-05-11] MEDS ORDERED: MIDAZOLAM 2 MG/2 ML INJ ONE ×3 (06:57→08:25)
[2019-05-11] MEDS ORDERED: FENTANYL CITRATE INJ/PF 100 MCG/2 ML AMPUL ONE (06:57)
[2019-05-11] MEDS ORDERED: LIDOCAINE 1% INJ-PF (10 MG/ML) 30 ML SDV ONE (07:09)
[2019-05-11] MEDS ORDERED: EPINEPHRINE INJ/PF 1 MG/1 ML AMPULE ONE (07:09)
[2019-05-11] MEDS ORDERED: CHONDR SU A NA/HYALUR INTRAOC KIT (SURGICARE) ONE (07:09)
[2019-05-11] MEDS: TETRACAINE HCL 0.5% OPH SOLN 4 ML OD PRN ×3 (07:12→07:53)
[2019-05-11] MEDS: TROPICAMIDE 1% OPH SOLN 3 ML OD PRN ×3 (07:13→07:40)
[2019-05-11] MEDS: CYCLOPENTOLATE 0.2%/PHENYLEPHRINE 1% OPH SOLN 2 ML OD PRN ×3 (07:13→07:40)
[2019-05-11] MEDS: BESIFLOXACIN HCL 0.6% OPH SUSP 5 ML BOTTLE OD PRN ×4 (07:13→08:23)
[2019-05-11] MEDS ORDERED: LIDOCAINE 1%/PHENYLEPHRINE 1.5% 1 ML VIAL ONE (08:11)
[2019-05-11] MEDS: DORZOLAMIDE HCL 2%/TIMOLOL MALEAT 0.5% OPH SOLN 10 ML OD PRN ×2 (08:23)
--- NOTE | 2019-05-11 13:01 | Operative Report ---
Operative Report-[facility] Operative Report: DATE OF SURGERY: May 11, 2019 PREOPERATIVE DIAGNOSIS: CATARACT, RIGHT EYE. POSTOPERATIVE DIAGNOSIS: CATARACT,RIGHT EYE. PROCEDURE PERFORMED: PHACOEMULSIFICATION WITH POSTERIOR CHAMBER INTRAOCULAR LENS, RIGHT EYE. Intraocular Lens Model : Symfony toric Z XT 150 18.0 diopters Total Phaco Time: 5.78 CDE SURGEON: AGATA ONOFRE MD ANESTHESIA: TOPICAL WITH MAC. INDICATIONS FOR SURGERY: Difficulty with night driving PROCEDURE: The patient was brought to the Operating Room and placed in a seated position. a lid speculum was placed in the eye. the 0,180, and 270 degree axis of the cornea was marked with a toric marker. the patien was place in a reclining position. Following tetracaine drops, topical anesthesia was administered. This consisted of instrument wipe pledgets soaked in a solution of 4% Xylocaine mixed with 0.75% Marcaine in a 1:2 ratio. A 2 x 1 cm pledget was placed in the superior fornix. A 1 x 1 cm pledget was placed in the inferior fornix. The eye was patched shut for 5 minutes. The patch was removed. The eye was sterilely prepped and draped in the usual manner. Lid speculum was placed in the eye. The pledgets were removed. 4-0 black silk sutures were placed around the superior and the inferior rectus muscles to be used as traction. A conjunctival peritomy was made at the 10 o'clock position. Hemostasis was obtained with bipolar cautery. A posterior limbal groove was created using a crescent knife and dissected anteriorly towards the cornea. A sharp point blade was used to create a paracentesis site at the 2 o'clock position. 0.2 cc non preserved Lidocaine was injected into the anterior chamber. A 2.4 mm keratome was used to enter the anterior chamber through the groove. Viscoelastic was injected into the anteriorchamber. An anterior capsulotomy was performed using Utrata forceps in acapsulorrhexis fashion. Hydrodissection and hydrodelineation were performed. Phacoemulsification was performed in [id number] technique. Following this, the I/A unit was used to remove residual cortex. Viscoelastic was injected into the capsular bag. The Intraocular lens was placed in the capsular bag. The 3 degree axis of the eye was marked using a toric marker and the previously marked sites as reference. The lens was centered at this axis. The I/A unit was used to remove residual viscoelastic. The wound was seen to be watertight under high and low pressure, and no sutures were placed. The intraocular lens was well centered. The pressure was adjusted in the eye to normal pressure. The 4-0 black silk sutures and lid speculum were removed. The eye was shielded after Besivance and Cosopt drops were placed. The patient tolerated the procedure well and was sent to the Recovery Room in good condition.
--- NOTE | 2019-05-11 13:03 | PDOC DISCHARGE SUMMARY ---
Discharge Summary-[facility] Discharge Summary: DATE: May 11, 2019 FINAL DIAGNOSIS: CATARACT, RIGHT EYE PROCEDURE: Cataract extraction with Symfony toric intraocular lens implant right eye HOSPITAL COURSE: The patient will be discharged to home. The patient is instructed to resume preoperative medications, take Tylenol as needed for discomfort, to keep the eye shielded, They should use the prescribed antibiotic, NSAID, and steroid at 3 PM and 8 PM., and to follow up in my office in 1 day.
== END 2019-05-11 09:08 | disposition home or self-care (01) ==
LOC: SC 06:50
PROVIDERS: ATTEND Ophthalmology
DX: H25.813 Combined forms of age-related cataract, bilateral (principal); H04.123 Dry eye syndrome of bilateral lacrimal glands; E11.9 Type 2 diabetes mellitus without complications; E78.00 Pure hypercholesterolemia, unspecified; G20 Parkinson's disease; E07.9 Disorder of thyroid, unspecified; Z79.84 Long term (current) use of oral hypoglycemic drugs; Z79.899 Other long term (current) drug therapy
CPT/HCPCS: 66984; 82962; 00142; V2788; J2250; J3490 ×5; A9270; J0171; J2370; 142; J3010

== ENCOUNTER 2019-06-22 09:43 | Day surgery (SDC) | payer MEDICARE, OTHER ==
[~2019-06-22 09:43] MED LIST changes: -BUPIVACAINE HCL 0.75% INJ/PF (7.5 MG/1 ML) 10 ML SDV OD PRN; +BUPIVACAINE HCL 0.75% INJ/PF (7.5 MG/1 ML) 10 ML SDV OS PRN; -KETOROLAC TROMETHAMINE 0.45% 4 DROP/0.4 ML DROPERETTE OD PRN; +KETOROLAC TROMETHAMINE 0.45% 4 DROP/0.4 ML DROPERETTE OS PRN; +LIDOCAINE 1% INJ-PF (10 MG/ML) 30 ML SDV ONE; -LIDOCAINE 4% INJ/PF (40 MG/ML) 5 ML AMPUL OD PRN; +LIDOCAINE 4% INJ/PF (40 MG/ML) 5 ML AMPUL OS PRN
[2019-06-22] MEDS ORDERED: ONDANSETRON HCL INJ/PF 4 MG/2 ML SDV ONE (09:46)
[2019-06-22] MEDS ORDERED: FENTANYL CITRATE INJ/PF 100 MCG/2 ML AMPUL ONE (09:47)
[2019-06-22] MEDS ORDERED: MIDAZOLAM 2 MG/2 ML INJ ONE (09:47)
[2019-06-22] MEDS: CYCLOPENTOLATE 0.2%/PHENYLEPHRINE 1% OPH SOLN 2 ML OS PRN ×3 (10:15→10:35)
[2019-06-22] MEDS: BESIFLOXACIN HCL 0.6% OPH SUSP 5 ML BOTTLE OS PRN ×4 (10:15→11:24)
[2019-06-22] MEDS: TROPICAMIDE 1% OPH SOLN 15 ML OS PRN ×3 (10:15→10:35)
[2019-06-22] MEDS: TETRACAINE HCL 0.5% OPH SOLN 4 ML OS PRN ×3 (10:15→11:00)
[2019-06-22] MEDS: CHONDR SU A NA/HYALUR INTRAOC KIT (SURGICARE) ONE ×2 (11:10)
[2019-06-22] MEDS: EPINEPHRINE INJ/PF 1 MG/1 ML AMPULE ONE ×2 (11:10)
[2019-06-22] MEDS ORDERED: LIDOCAINE 1%/PHENYLEPHRINE 1.5% 1 ML VIAL ONE (11:14)
[2019-06-22] MEDS: DORZOLAMIDE HCL 2%/TIMOLOL MALEAT 0.5% OPH SOLN 10 ML OS PRN ×2 (11:24)
--- NOTE | 2019-06-22 12:57 | Operative Report ---
Operative Report-[facility] Operative Report: DATE OF SURGERY: 06/22/2019 PREOPERATIVE DIAGNOSIS: CATARACT, LEFT EYE. POSTOPERATIVE DIAGNOSIS: CATARACT, LEFT EYE. PROCEDURE PERFORMED: PHACOEMULSIFICATION WITH POSTERIOR CHAMBER INTRAOCULAR LENS, LEFT EYE. Intraocular Lens Model : Symfony Z XR 00 20.0 Total Phaco Time: 4.41 CDE SURGEON: AGATA ONOFRE MD ANESTHESIA: TOPICAL WITH MAC. INDICATIONS FOR SURGERY: Difficultly driving at night PROCEDURE: The patient was brought to the Operating Room and placed on the operative table. Following tetracaine drops, topical anesthesia was administered. This consisted of instrument wipe pledgets soaked in a solution of 4% Xylocaine mixed with 0.75% Marcaine in a 1:2 ratio. A 2 x 1 cm pledget was placed in the superior fornix. A 1 x 1 cm pledget was placed in the inferior fornix. The eye was patched shut for 5 minutes. The patch was removed. The eye was sterilely prepped and draped in the usual manner. Lid speculum was placed in the eye. The pledgets were removed. 4-0 black silk sutures were placed around the superior and the inferior rectus muscles to be used as traction. A conjunctival peritomy was made at the 10 o'clock position. Hemostasis was obtained with bipolar cautery. A posterior limbal groove was created using a crescent knife and dissected anteriorly towards the cornea. A sharp point blade was used to create a paracentesis site at the 2 o'clock position. 0.2 cc non preserved Lidocaine was injected into the anterior chamber. A 2.4 mm keratome was used to enter the anterior chamber through the groove. Viscoelastic was injected into the anterior chamber. An anterior capsulotomy was performed using Utrata forceps in a capsulorrhexis fashion. Hydrodissection and hydrodelineation were performed. Phacoemulsification was performed in [id number] technique. Following this, the I/A unit was used to remove residual cortex. Viscoelastic was injected into the capsular bag. The Intraocular lens was placed in the capsular bag. The I/A unit was used to remove residual viscoelastic. The wound was seen to be watertight under high and low pressure, and no sutures were placed. The intraocular lens was well centered. The pressure was adjusted in the eye to normal pressure. The 4-0 black silk sutures and lid speculum were removed. The eye was shielded after Besivance and Cosopt drops were placed. The patient tolerated the procedure well and was sent to the Recovery Room in good condition.
== END 2019-06-22 12:12 | disposition home or self-care (01) ==
LOC: SC 09:43
PROVIDERS: ATTEND Ophthalmology
DX: H25.812 Combined forms of age-related cataract, left eye (principal); Z96.1 Presence of intraocular lens; E11.9 Type 2 diabetes mellitus without complications; G20 Parkinson's disease; Z79.84 Long term (current) use of oral hypoglycemic drugs
CPT/HCPCS: 66984; 82962; 00142; V2788; J2250; J3490 ×5; A9270; J0171; J3010; J2405; J2370; 142

== ENCOUNTER 2020-01-16 14:21 | Emergency (ER) | payer MEDICARE, OTHER ==
[2020-01-16] MEDS ORDERED: LORAZEPAM INJ 2 MG/1 ML VIAL IV ONE (14:55)
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
[2020-01-16 15:02] LABS: ABSOLUTE EOSINOPHILS # (AUTO) 0.1 10^3/uL (0.0-0.6); ABSOLUTE LYMPHOCYTES (AUTO) 1.3 10^3/uL (0.5-4.7); ABSOLUTE MONOCYTES (AUTO) 0.7 10^3/uL (0.1-1.4); ABSOLUTE NEUT (AUTO) 5.7 10^3/uL (1.7-8.2); BASOPHILS % (AUTO) 0.4 % (0-2); EOSINOPHILS % (AUTO) 1.7 % (0-6); HEMATOCRIT 40.3 % (36.0-47.0); HEMOGLOBIN 14.1 g/dL (12.0-15.5); LYMPHOCYTES % (AUTO) 15.9 % (13-45); MEAN CORPUSCULAR HEMOGLOBIN 31.2 pg (27.0-33.4); MEAN CORPUSCULAR HGB CONC 35.1 g/dL (32.0-36.0); MEAN CORPUSCULAR VOLUME 89 fl (80-97); MONOCYTES % (AUTO) 8.9 % (3-13); PLATELET COUNT 184 10^3/uL (150-450); RED BLOOD COUNT 4.52 10^6/uL (3.72-5.28); RED CELL DISTRIBUTION WIDTH 13.4 % (11.5-14.0); SEGMENTED NEUTROPHILS % (AUTO) 73.1 % (42-78); TOTAL CELLS COUNTED % (AUTO) 100 %; WHITE BLOOD COUNT 7.9 10^3/uL (4.0-10.5)
[2020-01-16] MEDS ORDERED: LORAZEPAM INJ 2 MG/1 ML VIAL IM ONE (15:03)
[2020-01-16 15:17] LABS: ALBUMIN 4.5 g/dL (3.5-5.0); ALKALINE PHOSPHATASE 86 U/L (38-126); ANION GAP 14 (5-19); ASPARTATE AMINO TRANSFERASE 55 U/L (14-36); BILIRUBIN,TOTAL 0.8 mg/dL (0.2-1.3); BLOOD UREA NITROGEN 31 mg/dL (7-20); CALCIUM 10.2 mg/dL (8.4-10.2); CARBON DIOXIDE 19 mmol/L (22-30); CHLORIDE 107 mmol/L (98-107); GLUCOSE 106 mg/dL (75-110); POTASSIUM 4.4 mmol/L (3.6-5.0); TOTAL PROTEIN 7.1 g/dL (6.3-8.2)
[2020-01-16 15:18] LABS: ACETAMINOPHEN < 10 ug/mL (10-30); ALCOHOL < 10 mg/dL (NONE DETECTED); SALICYLATE < 1.0 mg/dL (2.0-20.0)
--- NOTE | 2020-01-16 15:29 | ER Document Report ---
ED Psych Disorder / Suicide - General Mode of Arrival: Medic Information source: Patient TRAVEL OUTSIDE OF THE [place] IN LAST 30 DAYS: No - Related Data Home Medications: Carbidopa-Levodopa 25-100 2 tab TID, Cytomel 5mcg 2 tab QAM, Lorazepam 1 mg 1/2-1 tab BID PRN (bottle empty) <NICOLE AUSTIN - Last Filed: 01/16/20 19:04> <ALEXA CISNEROS - Last Filed: 01/18/20 07:56> <MELVIN REY - Last Filed: 01/19/20 09:39> - General Chief Complaint: Psych Problem Stated Complaint: ALTERED MENTAL STATUS Time Seen by Provider: 01/16/20 14:44 Primary Care Provider: GARTH MITCHELL MD [Primary Care Provider] - Follow up as needed Notes: Patient is a 74-year-old female presenting to the emergency department from home via EMS after her called stating that she was acting crazy and altered. Patient does have a history of mental health issues. On arrival she is unable to give me an appropriate history, she is a flight of ideas, she is alert but when answering questions it is hard to keep her on track. She denies any physical complaints. Upon review of the records she does have a history of schizophrenia, bipolar, Alzheimer's and has also been in the emergency department on multiple occasions for altered mental status. (NICOLE AUSTIN) - Related Data Allergies/Adverse Reactions: No Known Allergies Allergy (Verified 12/22/18 17:30) Past Medical History - General Information source: Transfer Record - Social History Smoking Status: Unknown if Ever Smoked Family History: Other - Unable to obtain - Past Medical History Cardiac Medical History: Reports: Hx Hypercholesterolemia Denies: Hx Atrial Fibrillation, Hx Coronary Artery Disease, Hx DVT, Hx Heart Attack, Hx Hypertension, Hx Pulmonary Embolism Pulmonary Medical History: Denies: Hx Asthma, Hx COPD, Hx Respiratory Failure, Hx Tuberculosis Neurological Medical History: Denies: Hx Cerebrovascular Accident, Hx Seizures Endocrine Medical History: Reports: Hx Diabetes Mellitus Type 2, Hx Hyperthyroidism. Denies: Hx Diabetes Mellitus Type 1, Hx Hypothyroidism Renal/ Medical History: Denies: Hx Peritoneal Dialysis GI Medical History: Denies: Hx Cirrhosis, Hx Hepatitis, Hx Hiatal Hernia, Hx Ulcer Musculoskeletal Medical History: Denies Hx Arthritis, Denies Hx Gout Skin Medical History: Denies Hx Eczema, Denies Hx Psoriasis Psychiatric Medical History: Reports: Hx Bipolar Disorder, Hx Schizophrenia Infectious Medical History: Denies: Hx Hepatitis Past Surgical History: Reports: Hx Hysterectomy. Denies: Hx Mastectomy, Hx Open Heart Surgery, Hx Pacemaker - Immunizations Immunizations up to date: Yes Hx Diphtheria, Pertussis, Tetanus Vaccination: Yes Hx Pneumococcal Vaccination: 09/28/12 <NICOLE AUSTIN - Last Filed: 01/16/20 19:04> Review of Systems - Review of Systems -: Yes ROS unobtainable due to patient's medical condition <NICOLE AUSTIN - Last Filed: 01/16/20 19:04> Physical Exam <NICOLE AUSTIN - Last Filed: 01/16/20 19:04> - Vital signs Vitals: Temp Pulse Resp BP Pulse Ox 98.7 F 106 H 21 H 165/71 H 99 01/16/20 14:24 01/16/20 14:24 01/16/20 14:24 01/16/20 14:24 01/16/20 14:24 - Notes Notes: PHYSICAL EXAMINATION: GENERAL: Thin and frail and in no acute distress. HEAD: Atraumatic, normocephalic. EYES: Pupils equal round and reactive to light, extraocular movements intact, conjunctiva are normal. ENT: Nares patent, oropharynx clear without exudates. Moist mucous membranes. NECK: Normal range of motion, supple without lymphadenopathy LUNGS: Breath sounds clear to auscultation bilaterally and equal. No wheezes r ales or rhonchi. HEART: Regular rate and rhythm without murmurs ABDOMEN: Soft, nontender, nondistended abdomen. No guarding, no rebound. No masses appreciated. Female : deferred Musculoskeletal: Normal range of motion, no pitting or edema. No cyanosis. NEUROLOGICAL: Cranial nerves grossly intact. Normal speech. Normal sensory, motor exams PSYCH: Flight of ideas, hyper. SKIN: Warm, Dry, normal turgor, no rashes or lesions noted. (NICOLE AUSTIN) Course - Laboratory Result Diagrams: 01/16/20 14:32 01/16/20 14:32 <NICOLE AUSTIN - Last Filed: 01/16/20 19:04> - Laboratory Result Diagrams: 01/16/20 14:32 01/16/20 14:32 <ALEXA CISNEROS - Last Filed: 01/18/20 07:56> - Laboratory Result Diagrams: 01/18/20 15:05 01/18/20 15:05 <MELVIN REY - Last Filed: 01/19/20 09:39> - Re-evaluation Re-evalutation: 01/16/20 15:40 Patient is alert, answers a few questions but and then gets immediately off topic. Her physical exam is benign. Currently pending medical work-up. 01/16/20 19:04 Patient had an elevated CK, IV fluids were given. Patient is now medically cleared. Medication recommendations were received from psych team. Unfortunately I cannot order the pravastatin as we do not have this on her formulary. They also recommend deseeding Seroquel and Ativan that she usually takes at home. Recommended medications were ordered per med rec sheet. Patient has been calm and cooperative, not giving the staff any difficulties. She has been placed on a 24-hour IVC petition by psych. (NICOLE AUSTIN) 01/17/20 13:38 Discussed the patient with Christopher of the psychiatric team she is concerned that some of the patient's medications may be missing for her medical treatment. Patient and her are not good historians. Discussed with nursing who will discuss with pharmacy to have them reconcile the patient's outpatient and inpatient medications for more consistency. (ALEXA CISNEROS) 01/19/20 09:39 Transfer team here to transport patient to mental health facility. Patient is medically stable for transfer at this time. (MELVIN REY) - Vital Signs Vital signs: Temp Pulse Resp BP Pulse Ox 98.7 F 84 21 H 146/81 H 99 01/19/20 09:00 01/19/20 09:00 01/19/20 09:00 01/19/20 09:00 01/19/20 09:00 - Laboratory Laboratory results interpreted by me: 01/16/20 01/16/20 01/16/20 14:32 14:32 16:40 Amador % (Auto) Chloride Carbon Dioxide 19 L BUN 31 H Est GFR (MDRD) Non-Af 56 L Glucose POC Glucose AST 55 H ALT 43 H Creatine Kinase 831 H Urine Ketones 20 H Salicylates < 1.0 L Acetaminophen < 10 L Valproic Acid 01/17/20 01/17/20 01/18/20 06:30 06:30 10:21 Amador % (Auto) Chloride Carbon Dioxide BUN Est GFR (MDRD) Non-Af Glucose POC Glucose 125 H AST ALT Creatine Kinase 705 H Urine Ketones Salicylates Acetaminophen Valproic Acid 31.0 L 01/18/20 01/18/20 15:05 15:05 Amador % (Auto) 15.4 H Chloride 111 H Carbon Dioxide BUN 23 H Est GFR (MDRD) Non-Af Glucose 154 H POC Glucose AST 48 H ALT 52 H Creatine Kinase 783 H Urine Ketones Salicylates Acetaminophen Valproic Acid Discharge <NICOLE AUSTIN - Last Filed: 01/16/20 19:04> <ALEXA CISNEROS - Last Filed: 01/18/20 07:56> <MELVIN REY - Last Filed: 01/19/20 09:39> - Discharge Clinical Impression: Psychosis Qualifiers: Psychosis type: unspecified psychosis type Qualified Code(s): F29 - Unspecified psychosis not due to a substance or known physiological condition Condition: Fair Disposition: PSYCH HOSP/UNIT Referrals: GARTH MITCHELL MD [Primary Care Provider] - Follow up as needed
[2020-01-16] MEDS ORDERED: NORMAL SALINE 1000 ML 1,000 ML IV ONE (16:21)
[2020-01-16 17:00] LABS: APPEARANCE,URINE CLEAR; BILIRUBIN,URINE NEGATIVE (NEGATIVE); COLOR,URINE YELLOW; GLUCOSE, URINE NEGATIVE (NEGATIVE); KETONES,URINE 20 mg/dL (NEGATIVE); LEUKOCYTE ESTERASE,URINE NEGATIVE (NEGATIVE); NITRITE,URINE NEGATIVE (NEGATIVE); PROTEIN,URINE NEGATIVE (NEGATIVE); UROBILINOGEN,URINE NEGATIVE mg/dL (<2.0)
--- NOTE | 2020-01-16 17:11 | RADIOLOGY REPORT (SQ) ---
EXAM DESCRIPTION: CT HEAD WITHOUT IMAGES COMPLETED DATE/TIME: 01/16/2020 4:52 pm REASON FOR STUDY: AMS COMPARISON: 12/22/2018. TECHNIQUE: Axial images acquired through the brain without intravenous contrast. Images reviewed wi th bone, brain and subdural windows. Additional sagittal and coronal reconstructions were generated. Images stored on PACS. All CT scanners at this facility use dose modulation, iterative reconstruction, and/or weight based d osing when appropriate to reduce radiation dose to as low as reasonably achievable (ALARA). [facility]: Dose Right [facility]: CareDose [facility]: Dose Right [facility]: Teradose 4D [facility]: Smart [employer] RADIATION DOSE: CT Rad equipment meets quality standard of care and radiation dose reduction techniq ues were employed. CTDIvol: 53.2 mGy. DLP: 1044 mGy-cm. mGy. LIMITATIONS: None. FINDINGS: VENTRICLES: Normal size and contour. CEREBRUM: No masses. No hemorrhage. No midline shift. No evidence for acute infarction. Normal gra y/white matter differentiation. No areas of low density in the white matter. CEREBELLUM: No masses. No hemorrhage. No alteration of density. No evidence for acute infarction. EXTRAAXIAL SPACES: No fluid collections. No masses. ORBITS AND GLOBE: No intra- or extraconal masses. Normal contour of globe without masses. CALVARIUM: No fracture. PARANASAL SINUSES: No fluid or mucosal thickening. SOFT TISSUES: No mass or hematoma. OTHER: No other significant finding. IMPRESSION: NORMAL BRAIN CT WITHOUT CONTRAST. EVIDENCE OF ACUTE STROKE: NO. COMMENT: Quality ID # [id number]: Final reports with documentation of one or more dose reduction techniques (e.g., Automated exposure control, adjustment of the mA and/or kV according to patient size, use of iterative reconstruction technique) TECHNICAL DOCUMENTATION: JOB ID: [id number] 2010 [employer]- All Rights Reserved Reading location - IP/workstation name: [email or web address]
[2020-01-16 17:23] LABS: URINE AMPHETAMINES SCREEN NEGATIVE; URINE BARBITURATES SCREEN NEGATIVE; URINE BENZODIAZEPINES SCREEN NEGATIVE; URINE COCAINE SCREEN NEGATIVE; URINE MARIJUANA (THC) SCREEN NEGATIVE; URINE METHADONE SCREEN NEGATIVE; URINE PHENCYCLIDINE SCREEN NEGATIVE
--- NOTE | 2020-01-16 17:40 | RADIOLOGY REPORT (SQ) ---
EXAM DESCRIPTION: CHEST SINGLE VIEW IMAGES COMPLETED DATE/TIME: 01/16/2020 5:31 pm REASON FOR STUDY: altered mental status, eval for pneumonia COMPARISON: 12/22/2018. EXAM PARAMETERS: NUMBER OF VIEWS: One view. TECHNIQUE: Single frontal radiographic view of the chest acquired. RADIATION DOSE: NA LIMITATIONS: None. FINDINGS: LUNGS AND PLEURA: No opacities, masses or pneumothorax. No pleural effusion. MEDIASTINUM AND HILAR STRUCTURES: No masses. Contour normal. HEART AND VASCULAR STRUCTURES: Heart normal in size. Normal vasculature. BONES: No acute findings. HARDWARE: None in the chest. OTHER: No other significant finding. IMPRESSION: NO ACUTE RADIOGRAPHIC FINDING IN THE CHEST. TECHNICAL DOCUMENTATION: JOB ID: [id number] 2010 [employer]- All Rights Reserved Reading location - IP/workstation name: [email or web address]
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
[2020-01-16] MEDS: BUSPIRONE HCL 10 MG TABLET PO SCH (20:59)
[2020-01-16] MEDS: DIVALPROEX SODIUM 250 MG TABLET.DR PO SCH (20:59)
[2020-01-16] MEDS: RISPERIDONE 0.25 MG TABLET PO PRN (20:59)
[2020-01-16] MEDS: CLONIDINE 0.1 MG/24 HR PATCH.TDWK TD SCH (21:01)
--- NOTE | 2020-01-16 23:21 | EKG REPORT ---
SEVERITY:- OTHERWISE NORMAL ECG - SINUS TACHYCARDIA : Confirmed by: Juliet Castro 16-Jan-2020 23:20:42
--- NOTE | 2020-01-17 08:59 | ER Document Report ---
Doctor's Note Notes: 01/17/20 08:59 Patient remains confused and altered at this time but pleasantly so. Patient's lab work showed a mildly elevated creatinine level yesterday no other acute abnormalities. We will add a Depakote level as patient is on Depakote but she is not on lithium
[2020-01-17] MEDS ORDERED: NORMAL SALINE 1000 ML 1,000 ML IV ONE (09:41)
[2020-01-17] MEDS ORDERED: METFORMIN HCL 500 MG TABLET PO SCH (10:00)
[2020-01-17] MEDS: CLONIDINE 0.1 MG/24 HR PATCH.TDWK TD SCH (10:25)
[2020-01-17] MEDS: BUSPIRONE HCL 10 MG TABLET PO SCH ×2 (11:24→19:00)
[2020-01-17] MEDS: DIVALPROEX SODIUM 250 MG TABLET.DR PO SCH ×2 (11:25→19:00)
[2020-01-17] MEDS: RISPERIDONE 0.25 MG TABLET PO PRN (11:26)
--- NOTE | 2020-01-17 22:03 | PSYCHOLOGICAL NOTE ---
Psych Note - Psych Note Date seen by psych provider: 01/17/20 Time seen by psych provider: 13:20 Psych Note: Reason for Consult: AMS Check in conducted with patient: Patient continues to demonstrate flight of ideas, pressured speech and actively engages with her visual and auditory hallucinations as evidenced by nonstop conversations when alone. She is unable to answer questions appropriately and needs frequent re-direction. Chart review: Clinician notes patient does not have all medical medications order to include thyroid medication. Clinician discussed with attending medical provider about possible need for thyroid testing as reports are patient has not been taking medications at home. Updated Medication recommendations per [facility] contracted psychiatrist Dr. 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 Updated medication recommendations been provided. It is a 74-year-old female who presents to ED vi a EMS with concerns of noncompliance with medications to manage symptoms of bipolar disorder. Patient is unable to engage appropriately with clinician, and patient's is a poor historian. There is reasonable probability of patient suffering serious physical debilitation within the near future unless care, supervision, and the continued assistance of others is given. Patient will be reevaluated. Dr. Kahn was consulted on the care and management of this patient; attending physician is in agreement with recommendations and disposition.
--- NOTE | 2020-01-17 22:18 | ER Document Report ---
Doctor's Note Notes: 01/17/20 22:18 Patient remains confused but pleasant. No acute distress at this time. Voices no complaints at this time. 01/17/20 22:20 01/19/20 00:27 Patient restless but no acute distress. Cooperative voices no complaints at this time.
[2020-01-18] MEDS ORDERED: MELATONIN 5 MG TABLET PO ONE (00:25)
[2020-01-18] MEDS ORDERED: LORAZEPAM INJ 2 MG/1 ML VIAL IM ONE (00:42)
[2020-01-18] MEDS ORDERED: LIOTHYRONINE SODIUM 25 MCG TABLET PO SCH (08:00)
[2020-01-18] MEDS: LIOTHYRONINE SODIUM 5 MCG TABLET PO SCH (08:36)
[2020-01-18] MEDS: DIVALPROEX SODIUM 250 MG TABLET.DR PO SCH ×2 (09:25→19:08)
[2020-01-18] MEDS: METFORMIN HCL 500 MG TABLET PO SCH ×2 (10:28→19:06)
--- NOTE | 2020-01-18 14:29 | PSYCHOLOGICAL NOTE ---
Psych Note - Psych Note Date seen by psych provider: 01/18/20 Time seen by psych provider: 13:00 Psych Note: Reason for Consult: AMS Check in conducted with patient: Patient continues to demonstrate flight of ideas, pressured speech and actively engages with her visual and auditory hallucinations as evidenced by nonstop conversations. Patient demonstrates some paranoia today and had to be convinced by attending nurse and clinician to come out of the bathroom after staying in there for almost an hour. Patient continues to need frequent re-direction. Clinician spoke with patient's on the phone. He reports that about 4 months ago the patient's neurologist thought it was possible she had Parkinson but at her last appointment a few weeks ago, he did not think she had Parkinson. He reports the patient's has had some memory issues but not overly concerning. He is able to provide medication information and confirms he can bring the patient's Emsam patch to the ED for the patient (this medication is not in the hospital's formulary). *clinician notes patient's arrived and dropped off the patient's Emsam patches, they are given to attending nurse to process Medication recommendations per [facility] contracted psychiatrist Dr. Maryam MD are as follows: Decrease home medication of Emsam Patch 6mg-24 hour daily transdermal patch for 4 weeks then discontinue Continue Depakote 250MG, BID Continue Risperdone 0.25, BID PRN Please continue home medical medications Impression/Plan: Patient is recommended for continued IVC; she continued to demonstrate an inability to diferencialte between rality and her hallucinations. Patient continues to demonstrate pressured speech and today some paranoia. There is reasonable probability of the patient suffering a serious physical debilitation within the near future unless care, supervision, and the continued assistance of others is given. Patient will be reevaluated. Dr. Kahn was consulted on the care and management of this patient; attending physician is in agreement with recommendations and disposition. Patient's paperwork was faxed for placement consideration to [facility]- @[phone] Clinician received phone call requesting new labs drawn; they are considering accepting the patient if her labs have improved; @[phone] Zoya contacted clinician to confirm acceptance of patient. They confirm is transport can not happen into tomorrow morning they will still accept the patient. Transportation request has been faxed and transport packet provided to attending nurse.
--- NOTE | 2020-01-18 14:31 | ER Document Report ---
Doctor's Note Notes: 01/18/20 14:30 Discussed patient with Vamshi Harris psychiatric team. She possibly has placement for the patient but they are requesting a another set of current lab work to ensure that the CK total and other abnormalities have corrected
[2020-01-18 15:42] LABS: ABSOLUTE EOSINOPHILS # (AUTO) 0.1 10^3/uL (0.0-0.6); ABSOLUTE LYMPHOCYTES (AUTO) 1.9 10^3/uL (0.5-4.7); ABSOLUTE MONOCYTES (AUTO) 1.3 10^3/uL (0.1-1.4); ABSOLUTE NEUT (AUTO) 4.8 10^3/uL (1.7-8.2); BASOPHILS % (AUTO) 0.6 % (0-2); EOSINOPHILS % (AUTO) 1.5 % (0-6); HEMOGLOBIN 13.6 g/dL (12.0-15.5); LYMPHOCYTES % (AUTO) 23.9 % (13-45); MEAN CORPUSCULAR HEMOGLOBIN 31.8 pg (27.0-33.4); MEAN CORPUSCULAR HGB CONC 34.9 g/dL (32.0-36.0); MEAN CORPUSCULAR VOLUME 91 fl (80-97); MONOCYTES % (AUTO) 15.4 % (3-13); PLATELET COUNT 215 10^3/uL (150-450); RED BLOOD COUNT 4.28 10^6/uL (3.72-5.28); RED CELL DISTRIBUTION WIDTH 13.5 % (11.5-14.0); SEGMENTED NEUTROPHILS % (AUTO) 58.6 % (42-78); TOTAL CELLS COUNTED % (AUTO) 100 %; WHITE BLOOD COUNT 8.1 10^3/uL (4.0-10.5)
[2020-01-18 15:49] LABS: ALBUMIN 4.5 g/dL (3.5-5.0); ALKALINE PHOSPHATASE 77 U/L (38-126); ANION GAP 8 (5-19); ASPARTATE AMINO TRANSFERASE 48 U/L (14-36); BILIRUBIN,TOTAL 0.6 mg/dL (0.2-1.3); BLOOD UREA NITROGEN 23 mg/dL (7-20); CALCIUM 10.2 mg/dL (8.4-10.2); CARBON DIOXIDE 25 mmol/L (22-30); CHLORIDE 111 mmol/L (98-107); CREATINE KINASE 783 U/L (30-135); GLUCOSE 154 mg/dL (75-110); POTASSIUM 4.5 mmol/L (3.6-5.0); TOTAL PROTEIN 7.3 g/dL (6.3-8.2)
[2020-01-18] MEDS ORDERED: EMSAM TD SCH ×2 (17:00)
[2020-01-18] MEDS: VALPROATE SODIUM SYRUP 250 MG/5 ML UDCUP PO SCH (19:51)
[2020-01-19] MEDS: LIOTHYRONINE SODIUM 5 MCG TABLET PO SCH (09:16)
[2020-01-19] MEDS: VALPROATE SODIUM SYRUP 250 MG/5 ML UDCUP PO SCH (09:16)
[2020-01-19 09:35] VITALS: BP 146/81
--- NOTE | 2020-01-19 10:00 | ER Document Report ---
Doctor's Note Notes: 01/19/20 09:00 Patient resting calmly in chair. Patient refuses to take any of her daily medications at this time. Medications unable to be given IM. Patient medically clear for transfer at this time, patient is awaiting transfer crew. PHYSICAL EXAMINATION: GENERAL: Well-appearing and in no acute distress. HEAD: Atraumatic, normocephalic. EYES: sclera anicteric, conjunctiva are normal. ENT: nares patent. Moist mucous membranes. NECK: Normal range of motion, supple LUNGS: CTAB and equal. No wheezes rales or rhonchi. HEART: Regular rate and rhythm without murmurs EXTREMITIES: Normal range of motion, no pitting edema. BACK: No midline tenderness, no step-off or deformity. NEUROLOGICAL: Cranial nerves grossly intact. Normal speech. PSYCH: Psychotic, patient with tangential speech SKIN: Warm, Dry, normal turgor, no rashes or lesions noted
== END 2020-01-19 10:00 ==
LOC: ER 14:21
DX: F29 Unspecified psychosis not due to a substance or known physiological condition (principal); R41.82 Altered mental status, unspecified; F31.9 Bipolar disorder, unspecified; M79.673 Pain in unspecified foot; E78.00 Pure hypercholesterolemia, unspecified; E11.9 Type 2 diabetes mellitus without complications; Z90.710 Acquired absence of both cervix and uterus; Z91.14 Patient's other noncompliance with medication regimen
CPT/HCPCS: 93005; 99285; 96372; 96360; 96361; 36415; 82962; 80307 ×4; 82550; 84443; 85025; 80053; 81001; 80164; 71045; 70450; 93010; A9270 ×9; J2060; J7030 ×2; J3490

== ENCOUNTER 2020-02-04 16:20 | Emergency (ER) | payer MEDICARE, OTHER ==
[2020-02-04 17:08] LABS: ABSOLUTE EOSINOPHILS # (AUTO) 0.2 10^3/uL (0.0-0.6); ABSOLUTE LYMPHOCYTES (AUTO) 1.2 10^3/uL (0.5-4.7); ABSOLUTE MONOCYTES (AUTO) 0.6 10^3/uL (0.1-1.4); ABSOLUTE NEUT (AUTO) 2.7 10^3/uL (1.7-8.2); BASOPHILS % (AUTO) 0.4 % (0-2); EOSINOPHILS % (AUTO) 3.3 % (0-6); HEMATOCRIT 39.8 % (36.0-47.0); HEMOGLOBIN 13.4 g/dL (12.0-15.5); LYMPHOCYTES % (AUTO) 26.2 % (13-45); MEAN CORPUSCULAR HEMOGLOBIN 30.7 pg (27.0-33.4); MEAN CORPUSCULAR HGB CONC 33.7 g/dL (32.0-36.0); MEAN CORPUSCULAR VOLUME 91 fl (80-97); MONOCYTES % (AUTO) 11.8 % (3-13); PLATELET COUNT 171 10^3/uL (150-450); RED BLOOD COUNT 4.37 10^6/uL (3.72-5.28); RED CELL DISTRIBUTION WIDTH 13.2 % (11.5-14.0); SEGMENTED NEUTROPHILS % (AUTO) 58.3 % (42-78); TOTAL CELLS COUNTED % (AUTO) 100 %; WHITE BLOOD COUNT 4.7 10^3/uL (4.0-10.5)
[2020-02-04 17:24] LABS: ALBUMIN 3.2 g/dL (3.5-5.0); ALKALINE PHOSPHATASE 70 U/L (38-126); ASPARTATE AMINO TRANSFERASE 22 U/L (14-36); BILIRUBIN,TOTAL 0.3 mg/dL (0.2-1.3); BLOOD UREA NITROGEN 21 mg/dL (7-20); CALCIUM 9.4 mg/dL (8.4-10.2); GLUCOSE 111 mg/dL (75-110); POTASSIUM 4.1 mmol/L (3.6-5.0); TOTAL PROTEIN 5.7 g/dL (6.3-8.2)
[2020-02-04 17:28] LABS: CARBON DIOXIDE 30 mmol/L (22-30); CHLORIDE 107 mmol/L (98-107)
[2020-02-04 17:29] LABS: ACETAMINOPHEN < 10 ug/mL (10-30); ALCOHOL < 10 mg/dL (NONE DETECTED); ANION GAP 3 (5-19); SALICYLATE < 1.0 mg/dL (2.0-20.0)
--- NOTE | 2020-02-04 17:32 | RADIOLOGY REPORT (SQ) ---
EXAM DESCRIPTION: CT HEAD WITHOUT IMAGES COMPLETED DATE/TIME: 02/04/2020 5:13 pm REASON FOR STUDY: ams COMPARISON: 01/16/2020 TECHNIQUE: Axial images acquired through the brain without intravenous contrast. Images reviewed wi th bone, brain and subdural windows. Additional sagittal and coronal reconstructions were generated. Images stored on PACS. All CT scanners at this facility use dose modulation, iterative reconstruction, and/or weight based d osing when appropriate to reduce radiation dose to as low as reasonably achievable (ALARA). [facility]: Dose Right [facility]: CareDose [facility]: Dose Right [facility]: Teradose 4D [facility]: [employer] RADIATION DOSE: CT Rad equipment meets quality standard of care and radiation dose reduction techniq ues were employed. CTDIvol: 53.2 mGy. DLP: 1044 mGy-cm. mGy. LIMITATIONS: None. FINDINGS: VENTRICLES: Normal size and contour. CEREBRUM: No masses. No hemorrhage. No midline shift. No evidence for acute infarction. Normal gra y/white matter differentiation. No areas of low density in the white matter. CEREBELLUM: No masses. No hemorrhage. No alteration of density. No evidence for acute infarction. EXTRAAXIAL SPACES: No fluid collections. No masses. ORBITS AND GLOBE: No intra- or extraconal masses. Normal contour of globe without masses. CALVARIUM: No fracture. PARANASAL SINUSES: No fluid or mucosal thickening. SOFT TISSUES: No mass or hematoma. OTHER: No other significant finding. IMPRESSION: NORMAL BRAIN CT WITHOUT CONTRAST. EVIDENCE OF ACUTE STROKE: NO. COMMENT: Quality ID # [id number]: Final reports with documentation of one or more dose reduction techniques (e.g., Automated exposure control, adjustment of the mA and/or kV according to patient size, use of iterative reconstruction technique) TECHNICAL DOCUMENTATION: JOB ID: [id number] 2010 [employer]- All Rights Reserved Reading location - IP/workstation name: [email or web address]
--- NOTE | 2020-02-04 17:35 | RADIOLOGY REPORT (SQ) ---
EXAM DESCRIPTION: CHEST SINGLE VIEW IMAGES COMPLETED DATE/TIME: 02/04/2020 4:09 pm REASON FOR STUDY: ams COMPARISON: 01/16/2020 EXAM PARAMETERS: NUMBER OF VIEWS: One view. TECHNIQUE: Single frontal radiographic view of the chest acquired. RADIATION DOSE: NA LIMITATIONS: None. FINDINGS: LUNGS AND PLEURA: Lungs are hyperinflated. No focal consolidation or pleural effusion. N o pneumothorax. MEDIASTINUM AND HILAR STRUCTURES: No masses. Contour normal. HEART AND VASCULAR STRUCTURES: Heart normal in size. Normal vasculature. BONES: No acute findings. HARDWARE: None in the chest. OTHER: No other significant finding. IMPRESSION: NO ACUTE RADIOGRAPHIC FINDING IN THE CHEST. TECHNICAL DOCUMENTATION: JOB ID: [id number] 2010 [employer]- All Rights Reserved Reading location - IP/workstation name: [email or web address]
[2020-02-04 19:08] LABS: APPEARANCE,URINE CLEAR; BILIRUBIN,URINE NEGATIVE (NEGATIVE); COLOR,URINE YELLOW; GLUCOSE, URINE NEGATIVE (NEGATIVE); KETONES,URINE NEGATIVE (NEGATIVE); PROTEIN,URINE NEGATIVE (NEGATIVE); URINE SPECIFIC GRAVITY 1.011; UROBILINOGEN,URINE NEGATIVE mg/dL (<2.0)
--- NOTE | 2020-02-04 19:14 | ER Document Report ---
ED General - General TRAVEL OUTSIDE OF THE [place] IN LAST 30 DAYS: No - Related Data Home Medications: metroprolol, zyprexa ativan, cytomel, metformen, depakote, pravachol, emsam patch, selegiline <GIGI GENAO - Last Filed: 02/04/20 19:07> <MARIVELJAYA KEILA - Last Filed: 02/04/20 23:04> - General Chief Complaint: Altered Mental Status Stated Complaint: UNRESPONSIVE Time Seen by Provider: 02/04/20 16:25 Primary Care Provider: GARTH MITCHELL MD [Primary Care Provider] - Follow up as needed - HPI Notes: Chief complaint: Altered mental status HPI: 74-year-old female with longstanding history of bipolar disorder who had been seen in this facility 3 weeks ago for psychotic behavior with a negative medical work-up. She was subsequently transferred to an inpatient psychiatric facility. She apparently remained there for an extended period of time and has been discharged home with her within the last several days. contacted EMS requesting that they bring her to the hospital this afternoon noting that she had been "unresponsive" since sometime yesterday. EMS crew documented a normal fingerstick blood glucose in the field and normal oxygenation and vital signs. They noted however that the patient was nonverbal and responding minimally to painful stimuli during transport. Patient remained nonverbal at the time she presented here. (GIGI GENAO) - Related Data Allergies/Adverse Reactions: No Known Allergies Allergy (Verified 02/04/20 16:36) Past Medical History - General Information source: Emergency Med Personnel, COUNT INCLUDES THE [facility] Records Cannot obtain history due to: Altered mental status - Social History Smoking Status: Never Smoker Chew tobacco use (# tins/day): No Frequency of alcohol use: None Drug Abuse: None Family History: Other - Unable to obtain Patient has homicidal ideation: No - Past Medical History Cardiac Medical History: Reports: Hx Hypercholesterolemia Denies: Hx Atrial Fibrillation, Hx Coronary Artery Disease, Hx DVT, Hx Heart Attack, Hx Hypertension, Hx Pulmonary Embolism Pulmonary Medical History: Denies: Hx Asthma, Hx COPD, Hx Respiratory Failure, Hx Tuberculosis Neurological Medical History: Denies: Hx Cerebrovascular Accident, Hx Seizures Endocrine Medical History: Reports: Hx Diabetes Mellitus Type 2, Hx Hyperthyroidism. Denies: Hx Diabetes Mellitus Type 1, Hx Hypothyroidism Renal/ Medical History: Denies: Hx Peritoneal Dialysis GI Medical History: Denies: Hx Cirrhosis, Hx Hepatitis, Hx Hiatal Hernia, Hx Ulcer Musculoskeletal Medical History: Denies Hx Arthritis, Denies Hx Gout Skin Medical History: Denies Hx Eczema, Denies Hx Psoriasis Psychiatric Medical History: Reports: Hx Bipolar Disorder, Hx Schizophrenia Infectious Medical History: Denies: Hx Hepatitis Past Surgical History: Reports: Hx Hysterectomy. Denies: Hx Mastectomy, Hx Open Heart Surgery, Hx Pacemaker - Immunizations Immunizations up to date: Yes Hx Diphtheria, Pertussis, Tetanus Vaccination: Yes Hx Pneumococcal Vaccination: 09/28/12 <GIGI GENAO - Last Filed: 02/04/20 19:07> Review of Systems - Review of Systems -: Yes ROS unobtainable due to patient's medical condition <IGGI GENAO - Last Filed: 02/04/20 19:07> Physical Exam <GIGI GENAO - Last Filed: 02/04/20 19:07> - Vital signs Vitals: Temp Resp BP Pulse Ox 97.2 F 15 134/71 H 98 02/04/20 16:32 02/04/20 16:32 02/04/20 16:32 02/04/20 16:32 - Notes Notes: GENERAL: Elderly female who is nonverbal with eyes tightly closed and initially unresponsive to verbal stimuli. SKIN: Good turgor no rashes. HEAD: Normocephalic atraumatic. EYES: PERRLA. EOMI. Conjunctivae and sclerae clear. EARS: CANALS AND TMS CLEAR. NOSE: CLEAR. MOUTH: Moist mucosa. Edentulous. No stridor or edema. No drooling. NECK: Supple. No masses or thyromegaly. No adenopathy. Carotids 2+ without bruits. No JVD. BACK: Symmetrical without tenderness. CHEST: Respirations unlabored. Breath sounds clear and symmetrical. HEART: Regular rhythm. No murmur gallop or rub. ABDOMEN: Soft nontender without masses, organomegaly or rebound. Bowel sounds normally active. No bruits. GENITALIA: Deferred. EXTREMITIES: No edema. No calf tenderness. Cap refill less than 1.5 seconds. Dorsalis pedis and posterior tibial pulses 3+ and symmetrical. NEUROLOGICAL: GCS 13. Opens eyes to verbal stimuli. Disoriented to time. Follows commands to squeeze my hands symmetrically. Moving all 4 extremities spontaneously. PSYCHIATRIC: Flat affect. (GIGI GENAO) Course - Laboratory Result Diagrams: 02/04/20 16:40 02/04/20 16:40 <GIGI GENAO - Last Filed: 02/04/20 19:07> - Laboratory Result Diagrams: 02/04/20 16:40 02/04/20 16:40 <JAYA ORTA IV - Last Filed: 02/04/20 23:04> - Re-evaluation Re-evalutation: 02/04/20 19:14 Initial impression was that the patient's altered mentation was likely to be related to her psychiatric condition. We did a full medical work-up to exclude other significant pathology. Her head CT showed no acute changes. Chest x-ray normal per radiologist. She was afebrile here and had stable vital signs. Comprehensive metabolic profile CBC and urinalysis were unremarkable. Urine tox screen was negative. 02/04/20 19:15 On follow-up exam at this time the patient is fully alert and conversant although she is still disoriented today. I am going to ask the behavioral service to see the patient for consultation at this time. (GIGI GENAO) 02/04/20 22:17 Patient was evaluated by behavioral health. Patient is currently alert and oriented x3. Patient expressed to behavioral health worker that she believes th at her , who usually manages her medications for her, may have given her the wrong dose of 1 or more of her medications. Patient is currently alert and oriented x3 and is without complaint. She is on the phone with her coordinating transportation to get home. 02/04/20 23:02 Results of ED MSE discussed with patient. All questions were answered prior to discharge. Emergency signs and symptoms, reasons to return to the emergency department discussed with patient. (JAYA ORTA IV) - Vital Signs Vital signs: Temp Pulse Resp BP Pulse Ox 97.2 F 16 132/77 H 100 02/04/20 16:36 02/04/20 19:01 02/04/20 19:01 02/04/20 19:01 - Laboratory Laboratory results interpreted by me: 02/04/20 02/04/20 16:40 17:39 Anion Gap 3 L BUN 21 H Glucose 111 H ALT 44 H Ammonia < 8.7 L Total Protein 5.7 L Albumin 3.2 L Salicylates < 1.0 L Acetaminophen < 10 L Discharge <BIRGITGIGI E - Last Filed: 02/04/20 19:07> <JAYA ORTA IV - Last Filed: 02/04/20 23:04> - Discharge Clinical Impression: Transient altered mental status, Bipolar disorder Condition: Good Disposition: HOME, SELF-CARE Additional Instructions: Return to the Emergency Department without delay if any worse. You may want to consider having a family member dispense your weekly medications for you as well as her . HOME CARE INSTRUCTIONS & INFORMATION: Thank you for choosing us for your medical needs. We hope you're satisfied with the care you received. After you leave, you must properly care for your problem and, at the same time, observe its progress. Any condition can change. Some illnesses can change rapidly over hours or days. If your condition worsens, return to the Emergency Department or see your physician promptly. ABOUT YOUR X-RAYS AND EKG'S: If you had an EKG or X-rays taken, they have been read by the Emergency Physician. The X-rays and EKG's will also be read by a Radiologist or Turbo Electric Operator within 24 hours. If discrepancies are noted, you will be notified by telephone. Please be certain the ED has a correct telephone number & address where you can be reached. Also, realize that some fractures or abnormalities do not show up on initial X-rays. If your symptoms continue, see your physician. ABOUT YOUR LABORATORY TEST: If you had laboratory tests, the results have been reviewed by the Emergency Physician. Some test results (for example cultures) may not be available for several days. You will be contacted if any test result shows you need additional treatment. Please be certain the ED has a correct telephone number and address where you can be reached. ABOUT YOUR MEDICATIONS: You will receive instructions on how to take your medicine on the prescription label you receive. Additional information may be provided by the Pharmacy. If you have questions afterwards, call the ED for clarification or further instructions. Some prescribed medications may cause drowsiness. Do not perform tasks such as driving a car or operating machinery without consulting your Pharmacist. If you feel you need a refill of pain me dication, your condition will need re-evaluation. Please do not call for a refill of any medication. ABOUT YOUR SIGNATURE: Signature of this document acknowledges to followin. Understanding that you received emergency treatment and that you may be released before al medical problems are known or treated. Please be certain the ED has a correct phone number & address where you can be reached. 2. Acknowledgement that you will arrange for follow-up care as recommended. 3. Authorization for the Emergency Physician to provide information to your follow-up Physician in order to maximize your care. AT ANY TIME, IF YOUR SYMPTOMS CHANGE SIGNIFICANTLY OR WORSEN OR YOU DEVELOP NEW SYMPTOMS, RETURN TO THE EMERGENCY DEPARTMENT IMMEDIATELY FOR RE-EVALUATION. OUR GOAL IS TO PROVIDE EXCELLENT MEDICAL CARE! WE HOPE THAT WE HAVE MET YOUR EXPECTATIONS DURING YOUR EMERGENCY DEPARTMENT VISIT AND THAT YOU FEEL YOU HAVE RECEIVED EXCELLENT CARE! Referrals: GARTH MITCHELL MD [Primary Care Provider] - 02/07/20
[2020-02-04 19:24] LABS: URINE AMPHETAMINES SCREEN NEGATIVE; URINE BARBITURATES SCREEN NEGATIVE; URINE BENZODIAZEPINES SCREEN NEGATIVE; URINE COCAINE SCREEN NEGATIVE; URINE MARIJUANA (THC) SCREEN NEGATIVE; URINE METHADONE SCREEN NEGATIVE; URINE PHENCYCLIDINE SCREEN NEGATIVE
--- NOTE | 2020-02-04 22:34 | PSYCHOLOGICAL NOTE ---
Psych Note - Psych Note Date seen by psych provider: 02/04/20 Time seen by psych provider: 21:00 Psych Note: Impression/Plan: Patient is cleared from acute psychiatric services. Patient presents alert and full orientated. She reports she thinks she have taken the wrong medications or taken her medications incorrectly. She confirms her has been helping her, but she is worried he maybe having difficulties with his memory also. She denies any thoughts of harming herself or others this was demonstrated when she wanted to call her to make sure he was alright; "What if he took the wrong medications too?" Patient was just recently inpatient psychiatric treatment for stabilization and she has an outpatient mental health provider with [facility]. An APS report will be submitted to ensure the patient and her have all services needed and ensure medication mix ups do not occur again. Dr. Kahn was consulted on the care and management of this patient, attending physician is in agreement with recommendations and disposition.
[2020-02-05 00:19] VITALS: BP 129/82
--- NOTE | 2020-02-06 10:39 | EKG REPORT ---
SEVERITY:- NORMAL ECG - SINUS RHYTHM : Confirmed by: Juliet Castro 06-Feb-2020 10:39:02
== END 2020-02-05 00:18 | disposition home or self-care (01) ==
LOC: ER 16:20
DX: R41.82 Altered mental status, unspecified (principal); F31.9 Bipolar disorder, unspecified; E78.00 Pure hypercholesterolemia, unspecified; Z90.710 Acquired absence of both cervix and uterus
CPT/HCPCS: 36415; 70450; 71045; 80053; 80307; 81001; 82140; 83735; 85025; 93005; 93010; 99285

== ENCOUNTER 2020-04-12 14:16 | Emergency (ER) | payer MEDICARE, OTHER ==
--- NOTE | 2020-04-12 14:58 | ER Document Report ---
ED General Pain - General Stated Complaint: SYNCOPE Time Seen by Provider: 04/12/20 14:44 Primary Care Provider: GARTH MITCHELL MD [Primary Care Provider] - Follow up as needed Notes: HPI: Patient is a 75-year-old female with past medical history as recorded. EMS states that the patient was getting ready to get her nails done and then went upstairs. found her in the bed and was unresponsive. EMS stated when they arrived her speech was slightly slurred but she was awake and responding. Patient here is answering all questions appropriately. She states that she missed her nighttime medications so instead took her nighttime medications and her morning medications this morning. She denies any and all headache, neck pain, chest pain, karol pain, weakness or numbness. No nausea, vomiting, fevers, diarrhea, or dysuria. Patient was seen and evaluated here in January for unresponsiveness. History of bipolar disorder with a recent hospital psychiatric admission. At that time the patient awoke with no focal deficits with normal labs and vital signs. She was seen and evaluated by behavioral health and sent back to home. ROS: See HPI All other review of systems reviewed and otherwise negative Reviewed vital signs and nursing note as charted by RN. PHYSICAL EXAM: CONSTITUTIONAL: Alert and oriented and responds appropriately to questions. Well-appearing; well-nourished HEAD: Normocephalic; atraumatic EYES: PERRL; no nystagmus, sclerae non-icteric ENT: Normal nose; no rhinorrhea; moist mucous membranes; pharynx without lesions noted NECK: Supple without meningismus; non-tender; no cervical lymphadenopathy, no m asses CARD: Regular rate and rhythm; no murmurs; symmetric distal pulses RESP: Normal chest excursion without splinting or tachypnea; breath sounds clear and equal bilaterally; no wheezes, no rhonchi, no rales ABD/GI: Normal bowel sounds; non-distended; soft, non-tender; no palpable masses or abdominal bruits BACK: The back appears normal and is non-tender to palpation EXT: Normal ROM in all joints; non-tender to palpation; no edema SKIN: No acute lesions noted NEURO: CN 2-12 intact; no nystagmus noted; normal helypv-by-jifx bilaterally; 5/5 bilateral upper and lower extremity strength with sensation intact to light touch PSYCH: The patient's mood and manner are appropriate. Grooming and personal hygiene are appropriate. TRAVEL OUTSIDE OF THE [place] IN LAST 30 DAYS: No - Related Data Allergies/Adverse Reactions: No Known Allergies Allergy (Verified 02/04/20 16:36) Past Medical History - Social History Smoking Status: Unknown if Ever Smoked Family History: Other - Unable to obtain - Past Medical History Cardiac Medical History: Reports: Hx Hypercholesterolemia Denies: Hx Atrial Fibrillation, Hx Coronary Artery Disease, Hx DVT, Hx Heart Attack, Hx Hypertension, Hx Pulmonary Embolism Pulmonary Medical History: Denies: Hx Asthma, Hx COPD, Hx Respiratory Failure, Hx Tuberculosis Neurological Medical History: Denies: Hx Cerebrovascular Accident, Hx Seizures Endocrine Medical History: Reports: Hx Diabetes Mellitus Type 2, Hx Hyperthyroidism. Denies: Hx Diabetes Mellitus Type 1, Hx Hypothyroidism Renal/ Medical History: Denies: Hx Peritoneal Dialysis GI Medical History: Denies: Hx Cirrhosis, Hx Hepatitis, Hx Hiatal Hernia, Hx Ulcer Musculoskeletal Medical History: Denies Hx Arthritis, Denies Hx Gout Skin Medical History: Denies Hx Eczema, Denies Hx Psoriasis Psychiatric Medical History: Reports: Hx Bipolar Disorder, Hx Schizophrenia Infectious Medical History: Denies: Hx Hepatitis Past Surgical History: Reports: Hx Hysterectomy. Denies: Hx Mastectomy, Hx Open Heart Surgery, Hx Pacemaker - Immunizations Immunizations up to date: Yes Hx Diphtheria, Pertussis, Tetanus Vaccination: Yes Hx Pneumococcal Vaccination: 09/28/12 Physical Exam - Vital signs Vitals: Temp 97.7 F 04/12/20 16:11 Course - Re-evaluation Re-evalutation: 04/12/20 14:58 Given the above history and physical examination, we will obtain basic labs, EKG, urine analysis, and a CT scan of the head. I would like to avoid loud cardiac dysrhythmia, intracranial process, or other life-threatening event. Given the patient's history with current painless status in no acute distress with stable vital signs, I do believe this could have been a medication reaction or a patient's manifestation of psychiatric disease. 04/12/20 15:38 Patient still is answering all questions appropriately. I did call and speak to the patient's who is a retired physician. He states that indeed the patient did take her nighttime and morning medications. There is a slightly different story than by EMS. states he was taking his to get her nails done in the early afternoon when they got to the salon she was unresponsive in the seat. He saw no blueness and the patient complained of no pain. He does agree that the patient had a very similar presentation in January. He feels very comfortable of the patient's work appears unremarkable that we discharge the patient back to home under his and the primary care physician's care. He states that the patient has not had any recent altered mental status or manic- like episodes nor any increased obvious depression. 04/12/20 16:24 EKG shows a rate of 99, normal sinus rhythm, normal axis, no ST elevation or depression. 04/12/20 16:55 Labs and imaging as recorded. Patient is awake and alert moving all 4 extremities with no acute confusion. Given the above history and physical with the above information as recorded, I believe it is reasonable to discharge the patient back to home. - Vital Signs Vital signs: Temp Pulse Resp BP Pulse Ox 97.7 F 04/12/20 16:11 - Laboratory Result Diagrams: 04/12/20 13:35 04/12/20 13:35 Laboratory results interpreted by me: 04/12/20 13:35 BUN 26 H Glucose 189 H Salicylates < 1.0 L Acetaminophen < 10 L Discharge - Discharge Clinical Impression: Altered mental status Qualifiers: Altered mental status type: unspecified Qualified Code(s): R41.82 - Altered mental status, unspecified Accidental overdose Qualifiers: Encounter type: initial encounter Qualified Code(s): T50.901A - Poisoning by unspecified drugs, medicaments and biological substances, accidental (unintentional), initial encounter Condition: Good Disposition: HOME, SELF-CARE Additional Instructions: Come back immediately for any confusion, weakness or numbness, fevers or vomiting, or any other acute problems. Please make sure that the patient takes her medications as directed and please follow-up with the primary care physician. Referrals: GARTH MITCHELL MD [Primary Care Provider] - Follow up as needed
[2020-04-12 15:25] LABS: ABSOLUTE EOSINOPHILS # (AUTO) 0.1 10^3/uL (0.0-0.6); ABSOLUTE LYMPHOCYTES (AUTO) 0.9 10^3/uL (0.5-4.7); ABSOLUTE MONOCYTES (AUTO) 0.5 10^3/uL (0.1-1.4); ABSOLUTE NEUT (AUTO) 2.7 10^3/uL (1.7-8.2); BASOPHILS % (AUTO) 0.6 % (0-2); EOSINOPHILS % (AUTO) 1.5 % (0-6); HEMATOCRIT 40.2 % (36.0-47.0); HEMOGLOBIN 13.6 g/dL (12.0-15.5); LYMPHOCYTES % (AUTO) 22.2 % (13-45); MEAN CORPUSCULAR HEMOGLOBIN 30.8 pg (27.0-33.4); MEAN CORPUSCULAR HGB CONC 33.8 g/dL (32.0-36.0); MEAN CORPUSCULAR VOLUME 91 fl (80-97); MONOCYTES % (AUTO) 11.1 % (3-13); PLATELET COUNT 169 10^3/uL (150-450); RED CELL DISTRIBUTION WIDTH 13.2 % (11.5-14.0); SEGMENTED NEUTROPHILS % (AUTO) 64.6 % (42-78); TOTAL CELLS COUNTED % (AUTO) 100 %; WHITE BLOOD COUNT 4.2 10^3/uL (4.0-10.5)
[2020-04-12 15:45] LABS: ANION GAP 6 (5-19); BLOOD UREA NITROGEN 26 mg/dL (7-20); CALCIUM 9.6 mg/dL (8.4-10.2); CARBON DIOXIDE 29 mmol/L (22-30); CHLORIDE 102 mmol/L (98-107); GLUCOSE 189 mg/dL (75-110); POTASSIUM 4.4 mmol/L (3.6-5.0)
[2020-04-12 15:46] LABS: ACETAMINOPHEN < 10 ug/mL (10-30); SALICYLATE < 1.0 mg/dL (2.0-20.0)
[2020-04-12 16:31] LABS: APPEARANCE,URINE CLEAR; BILIRUBIN,URINE NEGATIVE (NEGATIVE); COLOR,URINE STRAW; GLUCOSE, URINE NEGATIVE (NEGATIVE); KETONES,URINE NEGATIVE (NEGATIVE); LEUKOCYTE ESTERASE,URINE NEGATIVE (NEGATIVE); NITRITE,URINE NEGATIVE (NEGATIVE); PROTEIN,URINE NEGATIVE (NEGATIVE); URINE SPECIFIC GRAVITY 1.006; UROBILINOGEN,URINE NEGATIVE mg/dL (<2.0)
[2020-04-12 16:51] LABS: URINE AMPHETAMINES SCREEN NEGATIVE; URINE BARBITURATES SCREEN NEGATIVE; URINE BENZODIAZEPINES SCREEN NEGATIVE; URINE COCAINE SCREEN NEGATIVE; URINE MARIJUANA (THC) SCREEN NEGATIVE; URINE METHADONE SCREEN NEGATIVE; URINE PHENCYCLIDINE SCREEN NEGATIVE
--- NOTE | 2020-04-12 16:53 | RADIOLOGY REPORT (SQ) ---
EXAM DESCRIPTION: CT HEAD WITHOUT IMAGES COMPLETED DATE/TIME: 04/12/2020 4:38 pm REASON FOR STUDY: 7; No covid; ams COMPARISON: 02/04/2020 TECHNIQUE: Axial images acquired through the brain without intravenous contrast. Images reviewed wi th bone, brain and subdural windows. Additional sagittal and coronal reconstructions were generated. Images stored on PACS. All CT scanners at this facility use dose modulation, iterative reconstruction, and/or weight based d osing when appropriate to reduce radiation dose to as low as reasonably achievable (ALARA). [facility]: Dose Right [facility]: CareDose [facility]: Dose Right [facility]: Teradose 4D [facility]: Groupspeak RADIATION DOSE: CT Rad equipment meets quality standard of care and radiation dose reduction techniq ues were employed. CTDIvol: 53.2 mGy. DLP: 991 mGy-cm. mGy. LIMITATIONS: None. FINDINGS: VENTRICLES: Normal size and contour. CEREBRUM: No masses. No hemorrhage. No midline shift. No evidence for acute infarction. Normal gra y/white matter differentiation. No areas of low density in the white matter. CEREBELLUM: No masses. No hemorrhage. No alteration of density. No evidence for acute infarction. EXTRAAXIAL SPACES: No fluid collections. No masses. ORBITS AND GLOBE: No intra- or extraconal masses. Normal contour of globe without masses. CALVARIUM: No fracture. PARANASAL SINUSES: Cannot exclude inspissated mucus in the right maxillary sinus. SOFT TISSUES: No mass or hematoma. OTHER: No other significant finding. IMPRESSION: 1. No acute intracranial imaging findings. 2. There appears to be inspissated mucus in the right maxillary sinus. EVIDENCE OF ACUTE STROKE: NO. COMMENT: Quality ID # [id number]: Final reports with documentation of one or more dose reduction techniques (e.g., Automated exposure control, adjustment of the mA and/or kV according to patient size, use of iterative reconstruction technique) TECHNICAL DOCUMENTATION: JOB ID: [id number] 2010 [employer]- All Rights Reserved Reading location - IP/workstation name: [email or web address]
[2020-04-12 17:19] VITALS: BP 118/74
--- NOTE | 2020-04-13 09:23 | EKG REPORT ---
SEVERITY:- ABNORMAL ECG - SINUS RHYTHM LEFT ATRIAL ABNORMALITY : Confirmed by: Juliet Castro 13-Apr-2020 09:22:30
== END 2020-04-12 18:21 | disposition home or self-care (01) ==
LOC: ER 14:16
DX: T50.901A Poisoning by unspecified drugs, medicaments and biological substances, accidental (unintentional), initial encounter (principal); R41.82 Altered mental status, unspecified; R55 Syncope and collapse; R47.81 Slurred speech; E11.9 Type 2 diabetes mellitus without complications
CPT/HCPCS: 36415; 70450; 80048; 80307; 81001; 84484; 85025; 93005; 93010; 99285

== ENCOUNTER → 2020-10-19 | Outpatient (CLI) | payer MEDICARE, OTHER ==
--- NOTE | 2020-10-19 15:46 | WOMENS IMAGING REPORT ---
EXAM DESCRIPTION: 3D SCREENING MAMMO BILAT IMAGES COMPLETED DATE/TIME: 10/19/2020 2:33 pm REASON FOR STUDY: Z12.31 ENCOUNTER FOR SCREENING MAMMOGRAM FOR MALIGNANT NEOPLASM OF BREAST Z12.31 ENCNTR SCREEN MAMMOGRAM FOR MALIGNANT NEOPLASM OF [place] COMPARISON: 2016, 2016, 2017 EXAM PARAMETERS: Standard craniocaudal and mediolateral oblique views of each breast recorded using digital acquisition and breast tomosynthesis. Read with the assistance of CAD. .[facility] - R2 Clinical Educator Version 9.2 LIMITATIONS: None. FINDINGS: Findings present which are benign by mammographic criteria. No suspicious masses, calcific ations or architectural distortion. Pertinent benign findings: Old post lumpectomy changes deep central right breast with architectural d istortion. Benign bilateral breast parenchymal calcifications. Benign mammographic findings may include one or more of the following: Smooth masses, popcorn/rim/coa rse calcifications, asymmetries, post-procedure changes, and lesions with long-standing stability. IMPRESSION: BENIGN MAMMOGRAPHIC FINDINGS. BIRADS 2 BREAST DENSITY: b. There are scattered areas of fibroglandular density. BIRAD: ASSESSMENT: 2 BENIGN FINDING(S) RECOMMENDATION: ROUTINE SCREENING Please continue yearly bilateral screening mammography/tomosynthesis in September 2021 COMMENT: The patient has been notified of the results by letter per MQSA requirements. Additional no tification policies are in place for contacting patient with suspicious or incomplete findings. Quality ID #[id number]: The [employer] recommends an annual screening mammogram for women aged 40 years or over. This facility utilizes a reminder system to ensure that all patients receive reminder letters, and/or direct phone calls for appointments. This includes reminders for routine scr eening mammograms, diagnostic mammograms, or other Breast Imaging Interventions when appropriate. Th is patient will be placed in the appropriate reminder system. TECHNICAL DOCUMENTATION: FINDING NUMBER: (1) ASSESSMENT: (1) JOB ID: [id number] 2010 [employer]- All Rights Reserved Reading location - IP/workstation name: [email or web address]
== END ==
LOC: WI 13:57
PROVIDERS: ATTEND Physician Assistant
DX: Z12.31 Encounter for screening mammogram for malignant neoplasm of breast (principal)
CPT/HCPCS: 77063; 77067